=== PATIENT | male | born 1950 | race Caucasian/White ===

== ENCOUNTER → 2023-10-31 12:48 | Outpatient (REF) | payer MEDICARE, BC, SELFPAY | LOC: RCS 12:48 | PROVIDERS: ATTENDING PHYSICIAN Otolaryngology; FAMILY PHYSICIAN Emergency Medicine; REFERRING PHYSICIAN Internal Medicine Cardiovascular Disease | DX: R06.09 Other forms of dyspnea (principal) | CPT/HCPCS: 93017; 70486; 93350 ==

== ENCOUNTER → 2024-01-11 06:24 | Day surgery (SDC) | payer MEDICARE, BC, SELFPAY | LOC: GI 06:24 | PROVIDERS: ATTENDING PHYSICIAN Internal Medicine Gastroenterology | DX: Z12.11 Encounter for screening for malignant neoplasm of colon (principal); K64.9 Unspecified hemorrhoids; K56.699 Other intestinal obstruction unspecified as to partial versus complete obstruction; K44.9 Diaphragmatic hernia without obstruction or gangrene; K31.7 Polyp of stomach and duodenum; K31.89 Other diseases of stomach and duodenum; C88.4 Extranodal marginal zone B-cell lymphoma of mucosa-associated lymphoid tissue [MALT-lymphoma]; K22.70 Barrett's esophagus without dysplasia; R12 Heartburn | CPT/HCPCS: 43239; G0121; 88305; 88341; 88342 ==

== ENCOUNTER → 2024-02-21 09:59 | Outpatient (REF) | payer MEDICARE, BC, SELFPAY | LOC: REG 09:59 | PROVIDERS: ATTENDING PHYSICIAN Internal Medicine Critical Care Medicine; FAMILY PHYSICIAN Internal Medicine | DX: R05.3 Chronic cough (principal); J44.9 Chronic obstructive pulmonary disease, unspecified | CPT/HCPCS: 87070; 87205 ==

== ENCOUNTER → 2024-08-24 09:01 | Outpatient (REF) | payer MEDICARE, BC, SELFPAY | LOC: PAVMRI 09:01 | PROVIDERS: ATTENDING PHYSICIAN Physician Assistant; FAMILY PHYSICIAN Internal Medicine | DX: M54.2 Cervicalgia (principal) | CPT/HCPCS: 72141; 73221 ==

== ENCOUNTER → 2024-09-01 09:35 | Outpatient (REF) | payer MEDICARE, BC, SELFPAY | LOC: HWRAD 09:35 | PROVIDERS: ATTENDING PHYSICIAN Internal Medicine Gastroenterology; FAMILY PHYSICIAN Internal Medicine | DX: Q43.8 Other specified congenital malformations of intestine (principal) | CPT/HCPCS: 74261 ==

== ENCOUNTER → 2024-10-22 15:56 | Outpatient (REF) | payer MEDICARE, BC, SELFPAY | LOC: RAD 15:56 | PROVIDERS: ATTENDING PHYSICIAN Nurse Practitioner Adult Health; FAMILY PHYSICIAN Internal Medicine | DX: R05.3 Chronic cough (principal) | CPT/HCPCS: 71046 ==

== ENCOUNTER → 2024-12-26 15:51 | Outpatient (REF) | payer MEDICARE, BC, SELFPAY | LOC: RAD 15:51 | PROVIDERS: ATTENDING PHYSICIAN Internal Medicine | DX: R07.89 Other chest pain (principal) | CPT/HCPCS: 71046 ==

== ENCOUNTER → 2025-02-12 13:21 | Outpatient (REF) | payer MEDICARE, OTHER, SELFPAY | LOC: RAD 13:21 | PROVIDERS: ATTENDING PHYSICIAN Nurse Practitioner Adult Health; FAMILY PHYSICIAN Internal Medicine | DX: R05.1 Acute cough (principal) | CPT/HCPCS: 71046 ==

== ENCOUNTER 2025-02-18 06:19 | Day surgery (SDC) | payer MEDICARE, OTHER, SELFPAY | END 2025-02-18 12:21 | disposition home or self-care (01) | LOC: GI 06:19 | PROVIDERS: ATTENDING PHYSICIAN Internal Medicine Gastroenterology | DX: K57.30 Diverticulosis of large intestine without perforation or abscess without bleeding (principal); D12.8 Benign neoplasm of rectum; K64.8 Other hemorrhoids; K64.4 Residual hemorrhoidal skin tags; C88.40 Extranodal marginal zone B-cell lymphoma of mucosa-associated lymphoid tissue [MALT-lymphoma] not having achieved remission; K20.90 Esophagitis, unspecified without bleeding; K22.89 Other specified disease of esophagus; K31.7 Polyp of stomach and duodenum; K44.9 Diaphragmatic hernia without obstruction or gangrene; K31.89 Other diseases of stomach and duodenum; R12 Heartburn; Z86.0100 Personal history of colon polyps, unspecified; Z87.19 Personal history of other diseases of the digestive system | CPT/HCPCS: 45331; 43251; 43239; 88305 ==

== ENCOUNTER 2025-03-02 23:26 | Inpatient (IN) | payer MEDICARE, BC, SELFPAY ==
[2025-03-02 14:43] VITALS: BP 130/93
[2025-03-02 15:18] LABS: Hematocrit 35.4 % (39.0-52.0); Hemoglobin 11.6 g/dL (13.0-18.0); Mean Corp Hgb Conc. 32.8 g/dL (33.0-37.0); Mean Corpuscular Volume 86.6 fL (80.0-94.0); Nucleated Red Blood Cells % 0 % (-); Platelet Count 242 10^3/uL (130-400); Red Cell Dist. Width 13.8 % (11.5-14.5)
[2025-03-02 15:23] LABS: ALT (SGPT) 17 U/L (0-50); AST (SGOT) 20 U/L (17-59); Albumin 4.4 g/dl (3.5-5.0); Alkaline Phosphatase 81 U/L (38-126); Blood Urea Nitrogen 19 mg/dl (9-20); Calcium 9.5 mg/dl (8.4-10.2); Carbon Dioxide 26 mmol/L (22-30); Chloride 104 mmol/L (98-107); Glucose 86 mg/dl (70-99); Potassium 4.2 mmol/L (3.5-5.1); Sodium 138 mmol/L (135-145); Total Protein 7.0 g/dl (6.3-8.2); eGFR > 60.00
[2025-03-02 18:45] VITALS: BMI 23.3
[2025-03-02 19:00] VITALS: BP 140/91
[2025-03-02 20:00] VITALS: BP 125/86
[2025-03-02] MEDS: ZOFRAN 4 MG IV (20:06)
[2025-03-02] MEDS: DUONEB 3 ML INH (20:06)
[2025-03-02] MEDS: TYLENOL 1000 MG PO (20:06)
--- NOTE | 2025-03-02 22:13 | ED.GENMED ---
History of Present Illness
General
Chief Complaint: Cold/Flu/URI Symptoms
Source: patient
Exam Limitations: none
Time Seen by Provider: 03/02/25 18:42
Nursing documentation reviewed up to this point in time: agreed with
History of Present Illness
History of Present Illness:
Patient to ED with complaint of worsening cough, thick secretions. Cough started a few months ago. He took a zpack in december without improvement. His PCP then placed him on a course of doxycycline. He reports no improvement. 2 weeks ago he was
placed on another antibiotic - cephalosporin - without improvement. Sunday he developed a fever. Brought to ED tonight by spouse for eval. PUlse ox 97%RA
Past History
Past History
ED Past Medical History: Cancer (MALT lymphoma, lung), HTN, Hypercholesterolemia and Other (Juarez's, lymphoma,)
ED Past Surgical History: Tonsilectomy and Other (Right upper lobectomy)
Social History
Tobacco: Non-smoker
Alcohol: Occasional
Drug: None
Personal:
Living: with family
Employment: Employed
Review of Systems
Review of Systems
Allergies reviewed?: Yes
All Other Systems: ROS reviewed and negative except as documented in HPI and ROS
Constitutional: Reports fever and fatigue
EENT: Reports no symptoms
Respiratory: Reports cough and trouble breathing
Cardiac: Reports no symptoms
ABD/GI: Reports no symptoms
: Reports no symptoms
Musculoskeletal: Reports no symptoms
Skin: Reports no symptoms
Neurological: Reports weakness
Psychiatric: Reports no symptoms
Phy Exam
General Physical Exam
General Presentation: moderate distress
General age: appears stated age
General Skin: warm and dry
General Habitus: normal
General Mental: alert
Cardiovascular Exam
Cardiovascular Exam: regular rate/rhythm and no edema
Pulmonary Exam
Pulmonary Exam: decreased breath sounds
Cough: coarse cough
Musculoskeletal Exam
Musculoskeletal Exam: full ROM and neuro vasc intact
Skin Exam
Skin Exam: normal color, warm/dry and no rash
Psychiatric Exam
Psychiatric Exam: normal mood/affect
Course
Orders/Labs/Results
Orders:
Orders
03/02/25 14:56
Complete Blood Count/With Diff Urgent
Comprehensive Metabolic Panel Urgent
Blood Culture Urgent
AYANA Source: Blood/Venous
Specimen Description:
03/02/25 18:[address] [CT Chest PE Study] Urgent
Comment:
Reason For Exam: Pain, SOB, fever, lung CA/RU lobectomy
03/02/25 18:55
Electrocardiogram (*1) Urgent
Reason for Study: Shortness of Breath
EKG- Treatment ONCE
Ipratropium/Albuterol Sulfate [Duoneb] 3 ml INH R NOW STA
03/02/25 19:30
Acetaminophen [Tylenol] 1,000 mg PO NOW STA
Ondansetron Injectable [Zofran] 4 mg IV NOW STA
03/02/25 20:16
Lactic Acid Urgent
03/02/25 22:11
Cefepime HCl [Maxipime] 2,000 mg IV NOW STA
03/02/25 22:15
Sterile Water [Sterile Water For Injection] 10 ml .ROUTE .STK-MED ONE
03/02/25 22:56
Admit/Transfer Patient As Directed
Co-Sign Provider:
Level of Care: Inpatient admission
Assign to:: Medical/Surgical
Physician / Group: Minnie villedaists
Diagnosis: multi-focal pneumonia
Reason for Hospitalization: multi-focal pneumonia - IV vancomycin and IV cefepime
Expected length of stay greater than two midnights?: Yes
ELOS- Estimated Length of Stay in days: 3
I certify the patient meets the requirements for IP care: Yes
PRN Pain Medication Management As Directed
May give lesser potent ordered pain med per pt: Yes
preference::
Protocol:: Medication orders for pain may be administered in a
manner that supports deferring to patient preference
when the pt is:
- Requesting an ordered lesser potent pain medication.
Least to most potent pain medications are defined
as: acetaminophen < NSAID < tramadol < opioids
(morphine, oxycodone, hydromorphone).
- Requesting a lesser dose of the same medication IF
ORDERED.
- Requesting a less intrusive route of administration
if both routes are prescribed by the provider (PO <
IV).
03/02/25 22:57
Code Status As Directed
Resuscitation Status: Full Code
03/03/25 01:02
0.9% Sodium Chloride 1000 ml [Nss] 1,000 ml IV 100 mls/hr
Acetaminophen [Tylenol] 650 mg PO Q4HPRN PRN
Benzonatate [Tessalon Perles] 200 mg PO TIDPRN PRN
Bisacodyl [Dulcolax] 10 mg RECTAL [id number] PRN
Docusate W/Senna [Senokot-S] 1 tablet PO BIDPRN PRN
Ipratropium/Albuterol Sulfate [Duoneb] 3 ml INH R Q4HPRN PRN
Ondansetron Injectable [Zofran] 4 mg IV Q6HPRN PRN
Polyethylene Glycol Powder [Miralax] 17 grams PO DAILYPRN PRN
VANCOMYCIN Pharmacy to Dose [VANCOCIN Pharmacy to Dose] 1 each Pharmacy To Prepare [Call Pharmacy To Prepare] 0 ml IV PER PROTOCOL
03/03/25 01:02
INFECTIOUS DISEASE CONSULT Routine
Consulting Provider: Devora Coates
Was physician already notified: Yes
Reason for consult: recurrent PNA - multifocal, immunocompromised
PULMONARY CONSULT Routine
Consulting Provider: Ifeanyi Jiménez
Was physician already notified: Yes
Reason for consult: recurrent PNA - multifocal, immunocompromised
Activity As Directed
Activity Level: As Tolerated
Vital Signs As Directed
Frequency: Per unit guidelines
Acapella [Rx Pep / Acapela] [RESP] Routine
Rx Incentive Spirometry [RESP] Routine
Frequency: q1h while awake
Ot Eval And Treat Routine
Pt Eval And Treat Routine
Activity Level: As Tolerated
DX Deep Vein Thrombosis Video Routine
03/03/25 01:14
MRSA Screen Routine
AYANA Source: Nose
Specimen Description:
03/03/25 02:13
Respiratory Culture/Gram Stain Routine
AYANA Source: Sputum
Specimen Description:
Date Specimen was Collected: 03/03/25
Time Specimen was Collected: 01:57
03/03/25 Breakfast
Cholesterol Lowering
At Your Request: Full Participation
Does patient need a safe tray?: No
Cholesterol Lowering: Sodium, 2 Gram
Cefepime HCl [Maxipime] 1,000 mg IV Q8H
03/03/25 06:27
Basic Metabolic Panel IN AM
Complete Blood Count/No Diff IN AM
03/03/25 08:00
Chlorthalidone [Hygroton] 12.5 mg PO DAILY
Guaifenesin [Mucinex] 1,200 mg PO Q12
Ipratropium/Albuterol Sulfate [Duoneb] 3 ml INH R QID
Losartan [Cozaar] 50 mg PO DAILY
Pantoprazole [Protonix] 40 mg PO BID
03/03/25 18:00
Atorvastatin [Lipitor] 10 mg PO QPM
Enoxaparin Sodium [Lovenox] 40 mg SC QPM
Abnormal Lab Results
03/02/25
14:56
WBC 11.0 H 10^3/uL
(4.8-10.8)
RBC 4.09 L 10^6/uL
(4.70-6.10)
Hgb 11.6 L g/dL
(13.0-18.0)
Hct 35.4 L %
(39.0-52.0)
MCHC 32.8 L g/dL
(33.0-37.0)
Absolute Neuts (auto) 8.0 H 10^3/uL
(1.4-6.5)
Absolute Monos (auto) 1.0 H 10^3/uL
(0.1-0.6)
Lymphocytes % 14.6 L %
(20.5-51.1)
03/02/25 14:56
03/02/25 14:56
Vital Signs
Initial and Last Documented VS:
Initial Vital Signs
Temp Pulse Resp BP Pulse Ox
98.8 F 81 16 130/93 97
03/02/25 14:43 03/02/25 14:43 03/02/25 14:43 03/02/25 14:43 03/02/25 14:43
Last Documented Vital Signs
Temp Pulse Resp BP Pulse Ox
98.1 F 75 16 134/81 96
03/03/25 15:10 03/03/25 19:53 03/03/25 19:53 03/03/25 15:10 03/03/25 19:53
*Radiology
Radiology exam reviewed: radiology read reviewed
*Pulse Oximetry
SaO2: 96
Oxygen Mode of Delivery: Room air
Patient hypoxic: no
*Critical Care Note
Total Time (30-74mins, 75-104mins- exclusive of procedures): Not Applicable
ED Attending Note
-
Portions of this chart may have been created with voice recognition software.� Occasional wrong word or��sound alike� substitutions may have occurred due to the inherent limitations of voice recognition software.
Discharge Plan
Departure
Patient Disposition: Admit
Date of Disposition: 03/02/25
Time of Disposition: 22:19
Presentation/result/management discussed w/ accepting MD/DO: Hospitalist
Patient with high blood pressure during this ER visit?: No
Condition: Fair
Covid-19: Not Applicable
Discharge Problem:
Multifocal pneumonia
Interventions
Interventions:
*Risk Screen - Suicide Last Done: 03/03/25 01:06
*General Assessment Last Done: 03/02/25 20:33
*Neglect/Abuse Screening Last Done: 03/02/25 14:45
*ED- Fall Risk Assessment Last Done: 03/02/25 20:33
*ED COVID-19 Vaccine History Last Done: 03/03/25 01:06
*Nursing Disposition Last Done: 03/03/25 01:42
ED- Pulmonary Assessment Last Done: 03/02/25 20:33
Discharge Date and Time
Discharge Date/Time: 03/03/25 01:10
[2025-03-02] MEDS: MAXIPIME 2000 MG IV (22:22)
[2025-03-02 22:27] VITALS: BP 111/80
--- NOTE | 2025-03-02 22:42 | HPS.HSE ---
Family Physician
-
Family Physician: NOT KNOW UNKNOWN - PT DOES
Chief Complaint
-
SOB
History of Present Illness
74 y/o M hx of MALT lymphoma on Rituxan, hx of lung cancer s/p lobectomy 2023 ([facility]) complicated by collapsed lung, HTN, HLD presents to ER for fever and cough. He reports symptoms began last Sunday. Cough is productive of green sputum. Also reports
SOB and upper/lower chest pain. He report prior similar symptoms with courses of doxycycline and Keflex without improvement. Denies any other complaints
CT imaging in ER concerning for multifocal pneumonia - patient placed on IV antibiotics and admitted.
Medical History
Past Medical History
Past Medical History: Reports GERD, HTN, Hypercholesterolemia and Other (MALT lymphoma on Rituxan, hx of lung cancer s/p lobectomy 2023 ([facility]))
Past Surgical History: Reports Other (lung lobectomy)
Social History
Tobacco: Non-smoker
Alcohol: Occasional
Drug: None
Personal:
Living: With Family
Employment: Employed
Family History
Family History: Not pertinent
Allergies / Home Medications
Allergies reflects when Allergies were last updated in [facility].
Home Medications with original date entered in [facility]
Allergy/Medication List:
Allergies
Allergy/AdvReac Type Severity Reaction Status Date / Time
No Known Allergies Allergy Unverified 06/21/22 12:50
Home Medications
chlorthalidone 25 mg tablet 12.5 mg PO DAILY 07/25/17
lorazepam 1 mg tablet 1 mg PO HS 07/25/17
losartan 50 mg tablet 50 mg PO DAILY 07/25/17
simvastatin 20 mg tablet 20 mg PO QPM 07/25/17
valacyclovir 500 mg tablet 500 mg PO DAILY 07/25/17
pantoprazole 40 mg tablet,delayed release 40 mg PO BID #60 tabs 07/26/17
nirmatrelvir 300 mg (150 mg x2)-ritonavir 100 mg tablet,dose pack (Paxlovid) See Rx Instructions PO .COMPLEX #30 ea 06/21/22
Review of Systems
-
A 12 point ROS was completed and negative except as noted: Yes
Physical Exam
Vital Signs
Vital Signs
Temp Pulse Resp BP Pulse Ox
98.8 F 85 20 125/86 96
03/02/25 14:43 03/02/25 20:45 03/02/25 20:45 03/02/25 20:00 03/02/25 22:16
Physical Exam
General: No Apparent Distress
HEENT: NormoCephalic and Anicteric
Respiratory: Wheezes, Rhonchi and Decreased Breath Sounds
Cardiac: S1/S2 and Regular Rhythm
Neuro: AO x 3
Psych: Calm
Laboratory Results
-
03/02/25 14:56
03/02/25 14:56
Laboratory Results
Lactic Acid 1.1 mmol/L (0.7-2.0) 03/02/25 20:16
Total Bilirubin 0.9 mg/dl (0.2-1.3) 03/02/25 14:56
AST 20 U/L (17-59) 03/02/25 14:56
ALT 17 U/L (0-50) 03/02/25 14:56
Alkaline Phosphatase 81 U/L (38-126) 03/02/25 14:56
Data Reviewed
-
CT Scan: Report Reviewed by me, Discussed with Patient and Discussed with Family
Lab Data: Labs Reviewed by me
Impression/Plan
-
Assessment:
Multifocal pneumonia
Underlying hx of lung cancer s/p lobectomy 2023 ([facility]) with collapsed lung complication
- no improvement despite doxycycline and keflex courses
- CT: mild bronchial wall thickening with bibasilar opacities which likely represents multifocal pneumonia
- admit
- IV Vanco/Cefepime; check MRSA swab and sputum culture
- scheduled and prn nebs
- IS/Acapella/Mucolytics
- Pulm and ID evaluations
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
GERD - PPI
HLD - statin
Essential HTN
- on Chlorthalidone/Losartan
DVT ppx: Lovenox
Code: Full
[2025-03-02 23:00] VITALS: BP 72/59
[2025-03-02 23:03] VITALS: BP 101/76
[2025-03-03 01:17] VITALS: BP 135/79; BMI 23.8
[2025-03-03] MEDS: NSS 1000 IV ×3 (01:43→23:09)
[2025-03-03] MEDS: VANCOCIN 530 MG IV (01:48)
[2025-03-03] MEDS: TESSALON PERLES 200 MG PO ×3 (02:31→17:18)
--- NOTE | 2025-03-03 02:51 | PTCARENOTE ---
Pt transferred to 4W. Pt AAOx3, able to stand on scale for weight and ambulated to bed without assistance. Pt oriented to room, safety measures in place, call barrera within reach.
[2025-03-03] MEDS: MAXIPIME 1000 MG IV ×3 (05:24→22:57)
[2025-03-03] MEDS: STERILE WATER FOR INJECTION 10 ML IV ×3 (05:25→22:57)
[2025-03-03 07:15] VITALS: BP 120/78
[2025-03-03 07:21] LABS: Hematocrit 31.7 % (39.0-52.0); Hemoglobin 10.5 g/dL (13.0-18.0); Mean Corp Hgb Conc. 33.1 g/dL (33.0-37.0); Mean Corpuscular Volume 86.1 fL (80.0-94.0); Platelet Count 214 10^3/uL (130-400); Red Cell Dist. Width 13.9 % (11.5-14.5)
[2025-03-03] MEDS: DUONEB 3 ML INH ×4 (07:34→19:50)
[2025-03-03 07:44] LABS: Blood Urea Nitrogen 13 mg/dl (9-20); Calcium 8.6 mg/dl (8.4-10.2); Carbon Dioxide 24 mmol/L (22-30); Chloride 108 mmol/L (98-107); Estimated Creatinine Clearance 48 ml/min; Glucose 83 mg/dl (70-99); Potassium 4.2 mmol/L (3.5-5.1); Sodium 138 mmol/L (135-145); eGFR > 60.00
[2025-03-03] MEDS: MUCINEX 1200 MG PO ×2 (07:58→20:23)
[2025-03-03] MEDS: TYLENOL 650 MG PO ×2 (07:58→22:44)
[2025-03-03] MEDS: DESENEX/MITRAZOL/ZEASORB 1 APPLIC TOPICAL ×2 (07:59→20:29)
[2025-03-03] MEDS: COZAAR 50 MG PO (07:59)
[2025-03-03] MEDS: PROTONIX 40 MG PO (07:59)
[2025-03-03] MEDS: NON-FORMULARY ITEM 1 DROP OPHTH ×2 (08:13→20:24)
--- NOTE | 2025-03-03 08:29 | W.PN.HOSP.TC ---
Today's Communication/Plan
-
see A/P
Assessment / Plan
Assessment / Plan
HPI: 74 yo M PMH MALT lymphoma on Rituxan, hx of lung cancer s/p lobectomy 2023 ([facility]) complicated by collapsed lung, HTN, HLD; presented to ER for fever and cough. He reports symptoms began last Sunday. Cough is productive of green sputum. Also
reported SOB and upper/lower chest pain. He report prior similar symptoms with courses of doxycycline and Keflex without improvement. Denies any other complaints
CT imaging in ER concerning for multifocal pneumonia - patient placed on IV antibiotics and admitted.
A/P:
# Multifocal pneumonia
# Underlying hx of lung cancer s/p lobectomy 2023 ([facility]) with collapsed lung complication
no improvement despite doxycycline and keflex courses
CT chest: mild bronchial wall thickening with bibasilar opacities which likely represents multifocal pneumonia. No PE.
Follow blood culture, resp culture, MRSA screen
Check urine Strep and Legionella Ag, Check COVID/Flu
Cont IV Vanco/Cefepime
scheduled and prn nebs
IS/Acapella/Mucolytics
Chest percussion
Pulm and ID evaluations
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
# GERD - PPI
# HLD - statin
# Essential HTN
on Chlorthalidone/Losartan
DVT ppx: Lovenox
Code: Full
DW RN
total time 51 min
Anticipated Discharge: > 48 hours
Subjective/Interval History
-
Date of Service: March 03, 2025
Objective Data
-
Labs:
Laboratory Results
03/03/25
06:27
WBC 10.1
Hgb 10.5 L
Hct 31.7 L
Plt Count 214
Sodium 138
Potassium 4.2
Chloride 108 H
Carbon Dioxide 24
BUN 13
Creatinine 1.1
Glucose 83
Calcium 8.6
Vital Signs:
Vital Signs
Temp Pulse Resp BP Pulse Ox
37.2 C 73 18 120/78 94
03/03/25 07:15 03/03/25 07:40 03/03/25 07:40 03/03/25 07:15 03/03/25 07:40
Review of Systems
-
History Source: Patient
Respiratory: Reports Cough and Trouble Breathing
Physical Exam
-
General: Well Developed, Well Nourished, No Apparent Distress, Comfortable and Conversant; Negative Respiratory Distress
HEENT: Normocephalic, Atraumatic, Nose Appears Normal and Ears Appear Normal; Negative Oxygen
Respiratory: Clear to Auscultation, Rhonchi, Non Labored Respirations and Other (harsh breath sound ); Negative Accessory Resp Muscle Use
Cardiac: Regular Rhythm and S1/S2
GI: Soft, Nontender, Nondistended and Normal Bowel Sounds
Skin: Warm and Dry
Neuro: Awake, Alert and Oriented
Psych: Calm and Intact Judgement/Insight
Data Reviewed
-
CT Scan: Report Reviewed by me
Labs: Labs Reviewed by me
--- NOTE | 2025-03-03 08:53 | PHA.VAN.IN ---
Addendum entered and electronically signed by Kaela Posada [facility] 03/03/25 10:27:
Agree with assessment and plan
Original Note:
Assessment
- Assessment
Renal Function: Appears similar to baseline
AUC Dosing Plan
- Dosing Variables
Dosing Weight (kg): 62.8
Dosing CrCl (ml/min): 48
Vd coefficient (L/kg): 0.7
- Empiric Dosing
Initial / Loading Dose: received 1500mg at 0148 this morning
Maintenance Regimen: 1000mg q24h
Estimated AUC (mcg*h/mL): 526
Estimated Peak (mcg*h/mL): 34.8
Estimated Trough (mcg/ml): 12.6
Estimated Half Life (H): 15.7
- Monitoring
No levels ordered at this time: consider within next few days
MRSA Screen: Ordered per protocol
Pharmacokinetics Vancomycin I
- -
Patient Age: 74
Patient Sex: Male
Vancomycin Day #: 1
Indication: Pulmonary/Respiratory
Requesting Provider: Dr. Barboza
Pertinent Antimicrobial Allergies:
NKDA
Height / Weight:
Height 5 ft 4 in
Actual Weight 62.766 kg
Pertinent Past Medical History: MALT lymphoma, lung cancer
- Vital Signs / Lab Results
Temp Pulse Resp BP Pulse Ox
98.9 F 73 18 120/78 94
03/03/25 07:15 03/03/25 07:40 03/03/25 07:40 03/03/25 07:15 03/03/25 07:40
Lab Results - Hematology
03/02/25 03/03/25
14:56 06:27
WBC 11.0 H 10.1
Lab Results - Chemistry
03/02/25 03/03/25
14:56 06:27
BUN 19 13
Creatinine 1.1 1.1
Estimated Creat Clear 48
Albumin 4.4
03/02/25 03/02/25
14:46 20:16
Lactic Acid Cancelled 1.1
--- NOTE | 2025-03-03 08:58 | CON.PUL ---
Consultation
Consultation Request
Date/Time Consultation Requested: 03/03/2025-7:30 AM
Date/Time Consultation Performed: 03/03/2025-8:30 AM
Requesting Provider: Hospitalist
Performing Provider: Dr. Boland
Reason for Consultation: Multifocal pneumonia
Medical History
-
Chief Complaint: Shortness of breath, cough
History of Present Illness:
74-year-old non-smoking male with a history of MALT lymphoma on Rituxan, lung cancer status post lobectomy at [facility] 2023, hypertension, hyperlipidemia who is complained of productive cough treated with antibiotics and steroids in the outpatient
setting without resolution and now admitted with CT evidence for multifocal pneumonia-pulmonary consulted for shortness of breath/cough/wheeze/pneumonia 03/03/2025. Patient is feeling somewhat improved but continues to have green sputum production.
He has chest congestion and wheezing. Has some shortness of breath with exertion. He has sinus congestion with postnasal drip. He denies any chest pain, hemoptysis, pleurisy, abdominal pain, nausea, focal weakness or lower extremity swelling.
Past Medical History
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 Lung cancer status post lobectomy 2023-[facility]. Hypertension. Hyperlipidemia.)
Social History
Tobacco: Non-smoker
Alcohol: Occasional
Drug: None
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
Living: With Family
Occupational Exposures: No known asbestos exposure
Environmental Exposures: No known tuberculosis exposure
Family History
Family History: Reviewed & Not Pertinent
Allergies / Home Medications
Allergies
Allergy/AdvReac Type Severity Reaction Status Date / Time
No Known Allergies Allergy Unverified 06/21/22 12:50
Home Medications
�Medication �Instructions �Recorded �Confirmed �Last Taken �Type
valacyclovir 500 mg tablet 500 mg PO DAILY 07/25/17 03/02/25 Unknown History
amlodipine 2.5 mg tablet 2.5 mg PO DAILY 03/02/25 03/02/25 Unknown History
aspirin 81 mg tablet 81 mg PO DAILY 03/02/25 03/02/25 Unknown History
atorvastatin 40 mg tablet 40 mg PO HS 03/02/25 03/02/25 Unknown History
cholecalciferol (vitamin D3) 25 25 mcg PO DAILY 03/02/25 03/02/25 Unknown History
mcg (1,000 unit) tablet (Vitamin
D3)
lifitegrast 5 % eye drops in a 1 drp ophthalmic (eye) BID 03/02/25 03/02/25 Unknown History
dropperette (Xiidra)
loratadine 10 mg tablet 10 mg PO DAILY 03/02/25 03/02/25 Unknown History
losartan 50 mg tablet 50 mg PO DAILY 03/02/25 03/02/25 Unknown History
montelukast 10 mg tablet 10 mg PO DAILY 03/02/25 03/02/25 Unknown History
pantoprazole 40 mg tablet,delayed 40 mg PO 1XD 03/02/25 03/02/25 Unknown History
release
tamsulosin 0.4 mg capsule (Flomax) 0.8 mg PO HS 03/02/25 03/02/25 Unknown History
lifitegrast 5 % eye drops in a 1 drp ophthalmic (eye) BID dry eyes 03/03/25 03/03/25 03/02/25 23:00 History
dropperette (Xiidra)
Review of Systems
-
Unable to Obtain full review of systems at this time due to: Other (Per HPI)
Vitals / Labs / Diagnostic Testing
Vital Signs
Temp Pulse Resp BP Pulse Ox
98.9 F 73 18 120/78 94
03/03/25 07:15 03/03/25 07:40 03/03/25 07:40 03/03/25 07:15 03/03/25 07:40
Lab Data
03/03/25 06:27
03/03/25 06:27
Diagnostic Testing:
Physical Exam
-
Exam:
Well-nourished and well-developed in no apparent distress
HEENT-atraumatic, normocephalic
Neck-supple, no JVD, no bruit
Heart-regular rate and rhythm-no murmurs, rubs or gallops
Chest with diminished breath sounds, prolonged expiratory time, expiratory wheezes, rhonchi, and crackles right greater than left base
Back without tenderness
Abdomen-soft, nontender, nondistended, no hepatosplenomegaly
Extremities-no cyanosis, clubbing, edema and good peripheral pulses
Integument-intact, no rashes, lesions or ecchymosis
Neurology-alert and oriented, nonfocal motor and sensory exam
Assessment
-
74-year-old non-smoking male with a history of MALT lymphoma on Rituxan, lung cancer status post lobectomy at [facility] 2023, hypertension, hyperlipidemia who is complained of productive cough treated with antibiotics and steroids in the outpatient
setting without resolution and now admitted with CT evidence for multifocal pneumonia-pulmonary consulted for shortness of breath/cough/wheeze/pneumonia 03/03/2025.
Multifocal pneumonia in immunocompromised patient on Rituxan
Chronic cough
Postnasal drip/sinusitis
Suspected asthma with mild to moderate acute exacerbation-significant wheezing on exam
Mild normocytic anemia-hemoglobin 10.5
Conditions present prior to admission:
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
Lung cancer status post lobectomy 2023-[facility].
Hypertension.
Hyperlipidemia.
Plan
Respiratory decompensation likely related to bronchitis/pneumonia-patient reports most recent cultures usual respiratory kori, however, sputum culture as an outpatient also revealed strep pneumonia/haemophilus influenza treated with extensive
Ceftin with initial improvement and then resurgence of symptoms
Extensive outpatient workup and previous treatments were reviewed
Supplemental oxygen as needed
Assess discharge supplemental oxygen needs
Aspiration precautions
Mucolytic's
Nebulizers
Saline nebulizers
Short course of steroids with ongoing wheezing
Mucus clearing devices-Acapella
Vest therapy
Sputum culture-including fungal and atypicals
Check cultures
Empiric antibiotics-cefepime and vancomycin initiated
Add atypical coverage with doxycycline
Tailor antibiotics according to cultures
Infectious disease consultation-pending
Saline nasal irrigations
CT sinuses
Consider ENT evaluation
DVT prophylaxis-on Lovenox
GI prophylaxis-on pantoprazole
Nutrition
Early mobilization
Outpatient pulmonary pihkgm-to-kktw saw Dr. Willingham 01/27/2025 and then Mariam Loco CNP 02/16/2025 and has appointment with Mariam on 04/20/25-patient would like to see Dr. Willingham next
Diagnostic data:
Chest x-ray 04/13/2023-[facility]D
Chest x-ray 10/22/2024-NAD
Chest x-ray 12/26/2024-NAD
Chest x-ray 01/28/2025-NAD
Chest x-ray 02/12/2025-NAD
CT chest 03/02/2025-no evidence for pulm embolism, mild bronchial wall thickening and bibasilar opacifications which likely represent multifocal pneumonia
CT sinus 10/31/23-severe right nasal septal deviation, mild mucosal thickening ethmoid sinuses
Stress echocardiogram 10/31/23-normal stress echocardiogram, EF 55-60% and postexercise 65-70%
Data Reviewed
-
PFT: Report reviewed by me
EKG: Report reviewed by me
Radiology: Image personally visualized and interpreted and Report reviewed by me
CT Scan: Image personally visualized and interpreted and Report reviewed by me
Medical Tests (Nuc Med, Echo etc): Report reviewed by me
Labs: Labs reviewed by me
Old Records: Reviewed
Total Time Spent with Patient (in minutes): 75
--- NOTE | 2025-03-03 09:45 | PTOTSP ---
pt currently requires supervision to no assistance to complete simple ADLs, functional transfers, ambulation. no acute OT needs identified at this time, will sign off.
--- NOTE | 2025-03-03 11:06 | CM ---
Initial assessment completed. 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
Patient resides w/ spouse in a 2STH w/ basement and loft, 30 steps to enter from the outside w/ a landing. Patient is independent w/ ambulation, no device required. Independent w/ ADLs. Patient has a nebulizer that is in good condition. Patient prev
was using neb as needed, however, he has been using more frequently due to pneumonia. Patient currently engages in OP PT at [facility], where his son works. Patient is a retired professor. Spouse is a oncologist. Prev w/ [facility] at home last fall
following surgery.
Address, point of contact and insurance verified
PCP: Lenny Yuen
Pharmacy: [facility]
Therapy assessed, no skilled needs at this time
Plan: Home, no needs when stable
[2025-03-03] MEDS: SOLU-MEDROL PF 40 MG IV ×2 (12:31→23:07)
[2025-03-03] MEDS: OCEAN, SALINE MIST 2 SPRAYS NASAL (12:31)
--- NOTE | 2025-03-03 13:35 | CON.ID ---
Consultation
-
Date/Time Consultation Requested: 03/03/25
Date/Time Consultation Performed: 03/03/25
Requesting Provider: Dr Peterson
Performing Provider: Dr Emilee Ventura
Reason for Consultation: multifocal pneumonia in immunocompromised patient with history of lobectomy
Chief Complaint / Past History
Chief Complaint
persistant cough with tenacious sputum continuing despite antibiotic
History of Present Illness
The patient has had complaints of wet productive cough with thick sputa which is often green/yellow with recent weight loss and feelings of unwellness for weeks with multiple CXR without evidence of pneumonia and with oral antibiotic not effecting
resolution of symptoms
Past History
Past Medical History: Asthma, Cancer, GERD, HTN, Hypercholesterolemia and Other (diverticulosis)
Additional Past Medical History:
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
Past Surgical History: Other (lobectomy for adenocarcinoma of lung)
Allergy History:
No Known Allergies Allergy (Unverified 06/21/22 12:50)
Social History
Tobacco: Former Smoker
Alcohol: Occasional
Drug: None
Personal:
Living: With Family
Employment: Retired
Family History
Family History: Not Pertinent
Review of Systems
Review of Systems
General: Change in Appetite
HEENT: Sinus Problems (hoarse voice,dysphagia)
Cardiovascular: Chest Pain
Respiratory: Cough and Sputum Production
Gasteroenterology: Weight Loss
Endocrine: Weakness and Fatigue
All systems: All other systems were reviewed and were negative
Vital Signs
Temp Pulse Resp BP Pulse Ox
98.9 F 79 18 120/78 93
03/03/25 07:15 03/03/25 11:16 03/03/25 11:16 03/03/25 07:15 03/03/25 11:16
Physical Exam
Physical Exam
Constitutional: Well Developed, Comfortable, Chronically Ill and Non-toxic
Head: Normocephalic
Eyes: Pupils Equal, Pupils Round, No Conjunctival Hemorrhage and Sclera Anicteric
Pharynx: Benign
Oral: No Thrush and No Ulcers
Cardiovascular: Regular Rate
Pulmonary: Non Labored (decreased breath sounds at bases, wet cough ,personally saw thick jimenez/beige sputum without blood noted)
Gastrointestinal: Soft, Non Tender and Non Distended (no flank tenderness)
Extremities: Pulses
Skin: Warm and Dry
Wound: None
Neurological: Awake, Alert, Oriented, AO x 3 and No Motor Deficits
Psychological: Calm (conversant, pleasant, cooperative)
Lab / Diagnostic Study Results
03/03/25 06:27
03/03/25 06:27
Abs Immat Gran (auto) 0.0 10^3/uL (0-0.05) 03/02/25 14:56
Absolute Neuts (auto) 8.0 10^3/uL (1.4-6.5) H 03/02/25 14:56
Absolute Lymphs (auto) 1.6 10^3/uL (1.2-3.4) 03/02/25 14:56
Absolute Monos (auto) 1.0 10^3/uL (0.1-0.6) H 03/02/25 14:56
Absolute Basos (auto) 0.0 10^3/uL (0-0.2) 03/02/25 14:56
Immature Gran % 0.4 % (0-0.5) 03/02/25 14:56
Neutrophils % 72.8 % (42.2-75.2) 03/02/25 14:56
Lymphocytes % 14.6 % (20.5-51.1) L 03/02/25 14:56
Monocytes % 9.2 % (1.7-9.3) 03/02/25 14:56
Eosinophils % 2.6 % (0-6) 08/04/25 14:56
Basophils % 0.4 % (0-2) 03/02/25 14:56
Lactic Acid 1.1 mmol/L (0.7-2.0) 03/02/25 20:16
Microbiology Results
Micro:
03/03/25 02:13 Respiratory Culture - Pending
Sputum Gram Stain - Preliminary
03/03/25 01:14 MRSA Screen - Pending
Nose
03/02/25 14:56 Blood Culture - Pending
Blood/Venous
Assessment / Plan
1. Multifocal pneumonia on CT chest with no PE, bibasilar opacities, bronchial thickening,sputum results pending
2. Continue Cefepime/Vancomycin for now pending culture results with discontinuation of Vancomycin as soon as possible in setting of renal status concern
3. Patient currently afebrile without leukocytosis
4. Patient immune compromised in setting of MALT lymphoma and chronic low dose steroid
5. Patient with history of lung cancer with lobectomy left upper
6. Recent weight loss, chronic cough with thick sputum production currently with adequate oxygenation
Thank you for calling Infectious Disease Consultation
The ID team will continue to follow with you.
Please call with any concerns or questions
Care Review
Total Time Spent with Patient (in minutes): 55
[2025-03-03 14:56] LABS: Hepatitis C Antibody Negative (Negative)
[2025-03-03 15:10] VITALS: BP 134/81
[2025-03-03 15:25] LABS: COVID-19 Antigen Negative (Negative)
--- NOTE | 2025-03-03 16:12 | PTCARENOTE ---
Patient ambulating with a steady gait. Patient took a shower today. Patient with an occasional harsh productive cough-Tessalon jenny given with some relief. Patient c/o chest soreness from coughing, but denies need for pain med at this time.
[2025-03-03] MEDS: LIPITOR 10 MG PO (17:09)
[2025-03-03] MEDS: LOVENOX 40 MG SC (17:09)
[2025-03-03] MEDS: OCEAN, SALINE MIST 50 SPRAYS NASAL ×2 (17:41→20:29)
[2025-03-03] MEDS: SODIUM CHLORIDE 3% FOR INHALATION 1 VIAL INH (19:50)
[2025-03-03] MEDS: PULMICORT 0.5 MG INH (19:50)
[2025-03-03] MEDS: VIBRAMYCIN 100 MG PO (20:24)
[2025-03-03] MEDS: FLOMAX 0.8 MG PO (20:24)
[2025-03-03 23:49] VITALS: BP 103/59
[2025-03-04] MEDS: STERILE WATER FOR INJECTION 10 ML IV ×3 (05:12→23:00)
[2025-03-04] MEDS: MAXIPIME 1000 MG IV ×3 (05:13→23:00)
[2025-03-04] MEDS: VANCOCIN 200 IV (05:14)
[2025-03-04 07:00] VITALS: BP 121/72
[2025-03-04 07:55] LABS: Hematocrit 32.0 % (39.0-52.0); Hemoglobin 10.5 g/dL (13.0-18.0); Mean Corp Hgb Conc. 32.8 g/dL (33.0-37.0); Mean Corpuscular Volume 85.8 fL (80.0-94.0); Platelet Count 230 10^3/uL (130-400); Red Cell Dist. Width 13.7 % (11.5-14.5)
[2025-03-04] MEDS: PULMICORT 0.5 MG INH ×2 (08:17→20:04)
[2025-03-04] MEDS: DUONEB 3 ML INH ×4 (08:17→20:04)
[2025-03-04] MEDS: SODIUM CHLORIDE 3% FOR INHALATION 1 VIAL INH ×2 (08:17→20:04)
[2025-03-04] MEDS: NSS 1000 IV (08:19)
[2025-03-04] MEDS: MUCINEX 1200 MG PO ×2 (08:20→19:12)
[2025-03-04] MEDS: COZAAR 50 MG PO (08:20)
[2025-03-04] MEDS: VIBRAMYCIN 100 MG PO ×2 (08:22→19:12)
[2025-03-04] MEDS: PROTONIX 40 MG PO (08:22)
[2025-03-04] MEDS: OCEAN, SALINE MIST 50 SPRAYS NASAL ×3 (08:23→17:16)
[2025-03-04 08:24] LABS: Blood Urea Nitrogen 16 mg/dl (9-20); Calcium 8.7 mg/dl (8.4-10.2); Carbon Dioxide 21 mmol/L (22-30); Chloride 109 mmol/L (98-107); Estimated Creatinine Clearance 53 ml/min; Glucose 153 mg/dl (70-99); Magnesium 2.2 mg/dl (1.6-2.3); Potassium 4.6 mmol/L (3.5-5.1); Sodium 140 mmol/L (135-145); eGFR > 60.00
[2025-03-04] MEDS: DESENEX/MITRAZOL/ZEASORB 1 APPLIC TOPICAL ×2 (08:26→19:21)
--- NOTE | 2025-03-04 08:26 | W.PN.PUL.V3 ---
Today's Communication / Plan
-
.
Continue mucus clearing devices.
Mucolytic's
Nebulizers.
Antibiotics..
Steroids
Outpatient pulmonary and ENT evaluation
Assessment
-
74-year-old non-smoking male with a history of MALT lymphoma on Rituxan, lung cancer status post lobectomy at [facility] 2023, hypertension, hyperlipidemia who is complained of productive cough treated with antibiotics and steroids in the outpatient
setting without resolution and now admitted with CT evidence for multifocal pneumonia-pulmonary consulted for shortness of breath/cough/wheeze/pneumonia 03/03/2025.
Multifocal pneumonia in immunocompromised patient on Rituxan
Chronic cough
Postnasal drip/sinusitis
Suspected asthma with mild to moderate acute exacerbation-significant wheezing on exam
Mild normocytic anemia-hemoglobin 10.5
Acute sinusitis
Conditions present prior to admission:
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
Lung cancer status post lobectomy 2023-[facility].
Hypertension.
Hyperlipidemia.
Plan
Respiratory decompensation likely related to bronchitis/pneumonia-patient reports most recent cultures usual respiratory kori, however, sputum culture as an outpatient also revealed strep pneumonia/haemophilus influenza treated with extensive
Ceftin with initial improvement and then resurgence of symptoms
Extensive outpatient workup and previous treatments were reviewed
Supplemental oxygen as needed
Assess discharge supplemental oxygen needs
Aspiration precautions
Mucolytic's continue
Nebulizers continue
Saline nebulizers continues
No change in Agml-Lofctn-prhhtnxwqs changed to prednisone 40 mg with slow taper
Mucus clearing devices-Acapella.
Incentive spirometry
Vest therapy- continue for an additional 24 hours
Sputum culture-including fungal and atypicals.
Cultures reviewed.
Sputum culture 03/03/25-usual respiratory kori-unrevealing
Urine Legionella and streptococcal antigens negative.
Influenza negative
Empiric antibiotics-cefepime and vancomycin initiated
Add atypical coverage with doxycycline
Tailor antibiotics according to cultures
Infectious disease consultation- noted and correspondence reviewed
Saline nasal irrigations
CT sinuses 03/03/25-mild sinusitis, left frontal sinus, left anterior ethmoid air cells and right posterior ethmoid 8 cells which appears new from 2023
Consider ENT evaluation outpatient
DVT prophylaxis-on Lovenox
GI prophylaxis-on pantoprazole
Nutrition
Early mobilization
Outpatient pulmonary [id number] saw Dr. Willingham 01/27/2025 and then Mariam Loco CNP 02/16/2025 and has appointment with Mariam on 04/20/25-patient would like to see Dr. Willingham next
Diagnostic data:
Chest x-ray 04/13/2023-NAD
Chest x-ray 10/22/2024-NAD
Chest x-ray 12/26/2024-NAD
Chest x-ray 01/28/2025-NAD
Chest x-ray 02/12/2025-NAD
CT chest 03/02/2025-no evidence for pulm embolism, mild bronchial wall thickening and bibasilar opacifications which likely represent multifocal pneumonia
CT sinus 10/31/23-severe right nasal septal deviation, mild mucosal thickening ethmoid sinuses
Stress echocardiogram 10/31/23-normal stress echocardiogram, EF 55-60% and postexercise 65-70%
Subjective Data
-
Date of Service:
Date of Service: March 04, 2025
Chief Complaint: Pulmonary Follow Up and Dyspnea Follow Up
Subjective:
Still with chest congestion, some wheezing, productive cough, no chest pain or abdominal pain
Review of Systems
General: Other (Per HPI)
Objective Data
Data Reviewed
Vital Signs / I&O:
Vital Signs
Temp Pulse Resp BP Pulse Ox
98.0 F 75 16 103/59 97
03/03/25 23:49 03/04/25 08:23 03/04/25 08:23 03/03/25 23:49 03/04/25 08:23
Intake and Output
03/03/25 03/04/25 03/05/25
06:59 06:59 06:59
Intake Total 3292 / 3292
Balance 3292 / 3292
SaO2: 97
Labs/Micro/Reports
Lab Data
03/04/25 07:13
03/04/25 07:13
Microbiology
03/03/25 17:12 Sputum Gram Stain - Preliminary
03/03/25 15:25 Urine Legionella Urinary Antigen - Final
Negative for Legionella pneumophila Serogroup 1 antigen.
A negative result does not rule out the possiblity of
Legionella infection due to other serogroups or species of
Legionella. Clinical correlation is recommended.
03/03/25 15:25 Urine Streptococcus pneumoniae Antigen (M - Final
Negative for Streptococcus pneumoniae antigen.
A negative result does not exclude infection with
Streptococcus pneumoniae. Clinical correlation is
recommended.
03/03/25 14:46 Nasal Swab Influenza Types A & B (ALIA) - Final
Negative for Influenza A & B, NAAT
Negative results must be combined with clinical observations
and patient history.
Nucleic Acid Amplification test (NAAT)performed on the
[employer] platform.
03/02/25 14:56 Blood/Venous Blood Culture - Preliminary
No Growth in 24 hours- Final report to follow
03/03/25 02:13 Sputum Gram Stain - Preliminary
[2025-03-04] MEDS: NON-FORMULARY ITEM 2 DROP OPHTH (08:27)
--- NOTE | 2025-03-04 08:45 | PHA.VAN.FU ---
Addendum entered and electronically signed by Kaela Posada [facility] 03/05/25 08:37:
Agree with assessment and plan
Original Note:
Vancomycin Assessment / Plan
- Assessment
Renal Function: Stable
WBC's are: WNL
In the past 24 hrs, patient has been: Afebrile
Concomitant Antimicrobials: cefepime
- Dosing Plan
Continue: 1000mg q24h
- Monitoring Plan
No level(s) ordered at this time: consider level within next few days once at steady state
- Follow Up
Pharmacy will continue to follow.
Vancomycin Follow UP
- -
Patient Age: 74
Patient Sex: Male
Vancomycin Day #: 2
Indication: Pulmonary/Respiratory
Requesting Provider: Dr. Barboza
Pertinent Antimicrobial Allergies:
NKDA
Height / Weight:
Height 5 ft 4 in
Actual Weight 62.766 kg
Pertinent Past Medical History: MALT lymphoma, lung cancer
- Vital Signs / Lab Results
Temp Pulse Resp BP Pulse Ox
97.9 F 75 16 121/72 97
03/04/25 07:00 03/04/25 08:23 03/04/25 08:23 03/04/25 07:00 03/04/25 08:26
Lab Results - Hematology
03/02/25 03/03/25 03/04/25
14:56 06:27 07:13
WBC 11.0 H 10.1 10.6
Lab Results - Chemistry
03/02/25 03/03/25 03/04/25
14:56 06:27 07:13
BUN 19 13 16
Creatinine 1.1 1.1 1.0
Estimated Creat Clear 48 53
Albumin 4.4
03/02/25 03/02/25
14:46 20:16
Lactic Acid Cancelled 1.1
Microbiology Results
03/03/25 01:14 MRSA Screen - Final
Nose No Methicillin Resistant Staphylococcus aureus isolated.
03/03/25 17:12 Gram Stain - Preliminary
Sputum
03/03/25 15:25 Legionella Urinary Antigen - Final
Urine Negative for Legionella pneumophila Serogroup 1 antigen.
A negative result does not rule out the possiblity of
Legionella infection due to other serogroups or species of
Legionella. Clinical correlation is recommended.
Streptococcus pneumoniae Antigen (M - Final
Negative for Streptococcus pneumoniae antigen.
A negative result does not exclude infection with
Streptococcus pneumoniae. Clinical correlation is
recommended.
03/03/25 14:46 Influenza Types A & B (ALIA) - Final
Nasal Swab Negative for Influenza A & B, NAAT
Negative results must be combined with clinical observations
and patient history.
Nucleic Acid Amplification test (NAAT)performed on the
[employer] platform.
03/02/25 14:56 Blood Culture - Preliminary
Blood/Venous No Growth in 24 hours- Final report to follow
03/03/25 02:13 Gram Stain - Preliminary
Sputum
--- NOTE | 2025-03-04 09:08 | W.PN.HOSP.TC ---
Today's Communication/Plan
-
see A/P
Assessment / Plan
Assessment / Plan
HPI: 74 yo M PMH MALT lymphoma on Rituxan, hx of lung cancer s/p lobectomy 2023 ([place]) complicated by collapsed lung, HTN, HLD; presented to ER for fever and cough. He reports symptoms began last Sunday. Cough is productive of green sputum. Also
reported SOB and upper/lower chest pain. He report prior similar symptoms with courses of doxycycline and Keflex without improvement. Denies any other complaints
CT imaging in ER concerning for multifocal pneumonia - patient placed on IV antibiotics and admitted.
A/P:
# Multifocal pneumonia
# Underlying hx of lung cancer s/p lobectomy 2023 ([place]) with collapsed lung complication
no improvement despite doxycycline and keflex courses
CT chest: mild bronchial wall thickening with bibasilar opacities which likely represents multifocal pneumonia. No PE.
blood culture so far negative, MRSA screen negative, urine Strep and Legionella Ag negative, COVID/Flu negative
follow resp culture
Cont IV Vanco/Cefepime, added doxycycline per Pulm
scheduled and prn nebs
IS/Acapella/Mucolytics
Cont chest percussion
Pulm and ID on board
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
# GERD - PPI
# HLD - statin
# Essential HTN
on Chlorthalidone/Losartan
DVT ppx: Lovenox
Code: Full
Anticipated Discharge: 24 - 48 hours
Subjective/Interval History
-
Date of Service: March 04, 2025
Objective Data
-
Labs:
Laboratory Results
03/04/25
07:13
WBC 10.6
Hgb 10.5 L
Hct 32.0 L
Plt Count 230
Sodium 140
Potassium 4.6
Chloride 109 H
Carbon Dioxide 21 L
BUN 16
Creatinine 1.0
Glucose 153 H
Calcium 8.7
Vital Signs:
Vital Signs
Temp Pulse Resp BP Pulse Ox
36.6 C 75 16 121/72 97
03/04/25 07:00 03/04/25 08:23 03/04/25 08:23 03/04/25 07:00 03/04/25 08:26
I&O
03/03/25 03/04/25 03/05/25
06:59 06:59 06:59
Intake Total 3292 / 3292
Balance 3292 / 3292
Review of Systems
-
History Source: Patient
Respiratory: Reports Cough (improved ) and Trouble Breathing (improved )
Physical Exam
-
General: Well Developed, Well Nourished, No Apparent Distress, Comfortable and Conversant; Negative Respiratory Distress
HEENT: Normocephalic, Atraumatic, Nose Appears Normal and Ears Appear Normal; Negative Oxygen
Respiratory: Clear to Auscultation, Rhonchi (improved ), Non Labored Respirations and Other (harsh breath sound much resolved ); Negative Accessory Resp Muscle Use
Cardiac: Regular Rhythm and S1/S2
GI: Soft, Nontender, Nondistended and Normal Bowel Sounds
Skin: Warm and Dry
Neuro: Awake, Alert and Oriented
Psych: Calm and Intact Judgement/Insight
Data Reviewed
-
CT Scan: Report Reviewed by me
Labs: Labs Reviewed by me
[2025-03-04] MEDS: SOLU-MEDROL PF 40 MG IV ×2 (12:26→23:16)
[2025-03-04 15:00] VITALS: BP 153/98
--- NOTE | 2025-03-04 16:55 | W.PN.ID1 ---
Date of Service
Date of Service: March 04, 2025
Today's Communication
with patient and respiratory therapy
Assessment / Plan
1. Multifocal pneumonia on CT chest with no PE, bibasilar opacities, bronchial thickening,sputum results pending
2. Continue Cefepime/ discontinuation of Vancomycin in setting of negative MRSA screen
3. Patient currently afebrile without leukocytosis
4. Patient immune compromised in setting of MALT lymphoma and chronic low dose steroid
5. Patient with history of lung cancer with lobectomy left upper
6. Recent weight loss, chronic cough with thick sputum production currently with adequate oxygenation continue chest PT for secretions
Thank you for calling Infectious Disease Consultation
The ID team will continue to follow with you.
Please call with any concerns or questions
Chief Complaint
-: Pneumonia (bilateral with coontinued sputum production with cough somewhat diminished)
Subjective / Review of Systems
Review of Systems: No Fever, No Chills, No Headache, No Pharyngitis, No Stiff Neck, No Swollen Lymph Nodes, Cough, Sputum Production, Chest Pain, No Palpitations, No Abdominal Pain, No Nausea, No Vomiting, No Diarrhea, No Dysuria, No Joint Pain and
No Skin Rash
Vital Signs / Physical Exam
Vital Signs
Vital Signs
Temp Pulse Resp BP Pulse Ox
98.0 F 76 16 153/98 98
03/04/25 15:00 03/04/25 15:34 03/04/25 15:34 03/04/25 15:00 03/04/25 15:34
Physical Exam
Constitutional: No Acute Distress, Comfortable, Chronically Ill, Non-toxic and Cachetic
Head: Normocephalic
Eyes: Pupils Equal, Pupils Round, No Conjunctival Hemorrhage and Sclera Anicteric
Oropharyngeal: Benign
Cardiovascular: Regular Rate
Pulmonary: Coarse and Non Labored
Gastrointestinal: Soft, Non Tender, Non Distended and Decreased Bowel Sounds
Extremities: Pulses
Skin: Warm and Dry
Wound: None
Neurological: Awake, Alert, Oriented, AO x 3 and No Motor Deficits
Psychological: Calm
Objective Data
Lab Data
Lab Results
03/04/25 07:13
03/04/25 07:13
Estimated Creat Clear 53 ml/min 03/04/25 07:13
Lactic Acid 1.1 mmol/L (0.7-2.0) 03/02/25 20:16
Total Bilirubin 0.9 mg/dl (0.2-1.3) 03/02/25 14:56
AST 20 U/L (17-59) 03/02/25 14:56
ALT 17 U/L (0-50) 03/02/25 14:56
Alkaline Phosphatase 81 U/L (38-126) 03/02/25 14:56
Most recent labs reviewed.
Microbiology: Report Reviewed
Micro Results:
03/02/25 14:56 Blood Culture - Preliminary
Blood/Venous No Growth in 48 hours- Final report to follow
03/03/25 17:12 Respiratory Culture - Preliminary
Sputum Usual Respiratory Leida
Gram Stain - Preliminary
03/03/25 02:13 Respiratory Culture - Preliminary
Sputum Gram Stain - Preliminary
03/03/25 01:14 MRSA Screen - Final
Nose No Methicillin Resistant Staphylococcus aureus isolated.
03/03/25 15:25 Legionella Urinary Antigen - Final
Urine Negative for Legionella pneumophila Serogroup 1 antigen.
A negative result does not rule out the possiblity of
Legionella infection due to other serogroups or species of
Legionella. Clinical correlation is recommended.
Streptococcus pneumoniae Antigen (M - Final
Negative for Streptococcus pneumoniae antigen.
A negative result does not exclude infection with
Streptococcus pneumoniae. Clinical correlation is
recommended.
03/03/25 14:46 Influenza Types A & B (ALIA) - Final
Nasal Swab Negative for Influenza A & B, NAAT
Negative results must be combined with clinical observations
and patient history.
Nucleic Acid Amplification test (NAAT)performed on the
[employer] platform.
Chest X-Ray: Report Reviewed
CT Scan: Report Reviewed
Care Review
Plan reviewed with: Other (speech therapy)
Total Time Spent with Patient (in minutes): 35
[2025-03-04] MEDS: LIPITOR 10 MG PO (17:14)
[2025-03-04] MEDS: LOVENOX 40 MG SC (17:14)
[2025-03-04] MEDS: FLOMAX 0.8 MG PO (19:12)
[2025-03-04] MEDS: TESSALON PERLES 200 MG PO (19:12)
[2025-03-04] MEDS: NON-FORMULARY ITEM 1 DROP OPHTH (19:13)
[2025-03-04] MEDS: OCEAN, SALINE MIST 2 SPRAYS NASAL (23:00)
[2025-03-04 23:45] VITALS: BP 127/76
[2025-03-05] MEDS: MAXIPIME 1000 MG IV ×3 (06:22→22:57)
[2025-03-05] MEDS: VANCOCIN 200 IV (06:22)
[2025-03-05] MEDS: STERILE WATER FOR INJECTION 10 ML IV ×3 (06:22→22:55)
[2025-03-05 06:24] LABS: Hematocrit 30.8 % (39.0-52.0); Hemoglobin 10.3 g/dL (13.0-18.0); Mean Corp Hgb Conc. 33.4 g/dL (33.0-37.0); Mean Corpuscular Volume 84.8 fL (80.0-94.0); Platelet Count 243 10^3/uL (130-400); Red Cell Dist. Width 13.7 % (11.5-14.5)
[2025-03-05 06:40] LABS: Blood Urea Nitrogen 19 mg/dl (9-20); Calcium 9.8 mg/dl (8.4-10.2); Carbon Dioxide 23 mmol/L (22-30); Chloride 109 mmol/L (98-107); Estimated Creatinine Clearance 48 ml/min; Glucose 127 mg/dl (70-99); Potassium 4.7 mmol/L (3.5-5.1); Sodium 139 mmol/L (135-145); eGFR > 60.00
[2025-03-05 07:00] VITALS: BP 148/93
[2025-03-05] MEDS: DUONEB 3 ML INH ×4 (07:56→19:54)
[2025-03-05] MEDS: PULMICORT 0.5 MG INH ×2 (07:56→19:54)
[2025-03-05] MEDS: SODIUM CHLORIDE 3% FOR INHALATION 1 VIAL INH ×2 (08:03→19:54)
[2025-03-05] MEDS: NON-FORMULARY ITEM 2 DROP OPHTH (08:06)
[2025-03-05] MEDS: OCEAN, SALINE MIST 50 SPRAYS NASAL ×2 (08:06→11:29)
[2025-03-05] MEDS: COZAAR 50 MG PO (08:06)
[2025-03-05] MEDS: VIBRAMYCIN 100 MG PO ×2 (08:07→20:53)
[2025-03-05] MEDS: PROTONIX 40 MG PO (08:07)
[2025-03-05] MEDS: MUCINEX 1200 MG PO ×2 (08:07→20:53)
[2025-03-05] MEDS: COLACE 100 MG PO ×2 (08:08→20:57)
[2025-03-05] MEDS: DESENEX/MITRAZOL/ZEASORB 1 APPLIC TOPICAL ×2 (08:08→20:59)
--- NOTE | 2025-03-05 08:58 | W.PN.HOSP.TC ---
Today's Communication/Plan
-
see A/P
Assessment / Plan
Assessment / Plan
HPI: 74 yo M PMH MALT lymphoma on Rituxan, hx of lung cancer s/p lobectomy 2023 ([place]) complicated by collapsed lung, HTN, HLD; presented to ER for fever and cough. He reports symptoms began last Sunday. Cough is productive of green sputum. Also
reported SOB and upper/lower chest pain. He report prior similar symptoms with courses of doxycycline and Keflex without improvement. Denies any other complaints
CT imaging in ER concerning for multifocal pneumonia - patient placed on IV antibiotics and admitted.
A/P:
# Multifocal pneumonia
# Underlying hx of lung cancer s/p lobectomy 2023 ([place]) with collapsed lung complication
no improvement despite doxycycline and keflex courses
CT chest: mild bronchial wall thickening with bibasilar opacities which likely represents multifocal pneumonia. No PE.
blood culture so far negative, MRSA screen negative, urine Strep and Legionella Ag negative, COVID/Flu negative
respiratory culture growing normal kori
Cont IV Vanco/Cefepime, added doxycycline per Pulm
Cont scheduled and prn nebs
IS/Acapella/Mucolytics, cont chest percussion
Pulm and ID on board
started Solumedrol per Pulm
# Leucocytosis likely due to steroid effect
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
# GERD - PPI
# HLD - statin
# Essential HTN
on Chlorthalidone/Losartan
DVT ppx: Lovenox
Code: Full
DW pulm
DW on the phone
total time spent 51 min
Anticipated Discharge: 24 - 48 hours
Subjective/Interval History
-
Date of Service: March 05, 2025
Objective Data
-
Labs:
Laboratory Results
03/05/25
05:21
WBC 15.3 H
Hgb 10.3 L
Hct 30.8 L
Plt Count 243
Sodium 139
Potassium 4.7
Chloride 109 H
Carbon Dioxide 23
BUN 19
Creatinine 1.1
Glucose 127 H
Calcium 9.8
Vital Signs:
Vital Signs
Temp Pulse Resp BP Pulse Ox
36.7 C 76 16 148/93 99
03/05/25 07:00 03/05/25 08:04 03/05/25 08:04 03/05/25 07:00 03/05/25 08:04
I&O
03/04/25 03/05/25 03/06/25
06:59 06:59 06:59
Intake Total 3292 / 3292 1660 / 1660
Balance 3292 / 3292 1660 / 1660
Review of Systems
-
History Source: Patient
Respiratory: Reports Cough and Trouble Breathing
Physical Exam
-
General: Well Developed, Well Nourished, No Apparent Distress, Comfortable and Conversant; Negative Respiratory Distress
HEENT: Normocephalic, Atraumatic, Nose Appears Normal and Ears Appear Normal; Negative Oxygen
Respiratory: Clear to Auscultation, Rhonchi (improved ), Non Labored Respirations and Other (harsh breath sound); Negative Accessory Resp Muscle Use
Cardiac: Regular Rhythm and S1/S2
GI: Soft, Nontender, Nondistended and Normal Bowel Sounds
Skin: Warm and Dry
Neuro: Awake, Alert and Oriented
Psych: Calm and Intact Judgement/Insight
Data Reviewed
-
CT Scan: Report Reviewed by me
Labs: Labs Reviewed by me
--- NOTE | 2025-03-05 10:18 | W.PN.PUL.V3 ---
Today's Communication / Plan
-
No change in steroids.
Continue antibiotics.
Continue nebulizers and mucus clearing maneuvers
Updated
Assessment
-
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
setting without resolution and now admitted with CT evidence for multifocal pneumonia-pulmonary consulted for shortness of breath/cough/wheeze/pneumonia 03/03/2025.
Multifocal pneumonia in immunocompromised patient on Rituxan
Chronic cough
Postnasal drip/sinusitis
Suspected asthma with mild to moderate acute exacerbation-significant wheezing on exam
Mild normocytic anemia-hemoglobin 10.5
Acute sinusitis
Conditions present prior to admission:
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
Lung cancer status post lobectomy 2023-[facility].
Hypertension.
Hyperlipidemia.
Plan
Respiratory decompensation likely related to bronchitis/pneumonia-patient reports most recent cultures usual respiratory leida, however, sputum culture as an outpatient also revealed strep pneumonia/haemophilus influenza treated with extensive
Ceftin with initial improvement and then resurgence of symptoms
Extensive outpatient workup and previous treatments were reviewed
Supplemental oxygen as needed-95% on room air
Assess discharge supplemental oxygen needs
Aspiration precautions
Mucolytic's continue
Nebulizers continue-DuoNeb and budesonide
Saline nebulizers continues
No change in Etcp-Tcglqv-fmlxkufbsx changed to prednisone 40 mg with slow taper
Mucus clearing devices-Acapella.
Incentive spirometry
Vest therapy- continue for an additional 24 hours
Sputum culture-including fungal and atypicals.
Sputum thus far unrevealing
Cultures reviewed
Sputum culture 03/03/25-usual respiratory leida-unrevealing.
Sputum culture 03/05/25-many WBCs, mixed bacteria
Urine Legionella and streptococcal antigens negative.
Influenza negative
Empiric antibiotics-cefepime and vancomycin initiated-now cefepime and doxycycline
Add atypical coverage with doxycycline
Tailor antibiotics according to cultures
Infectious disease consultation- noted and correspondence reviewed
Saline nasal irrigations continue
CT sinuses 03/03/25-mild sinusitis, left frontal sinus, left anterior ethmoid air cells and right posterior ethmoid 8 cells which appears new from 2023
Consider ENT evaluation outpatient
DVT prophylaxis-on Lovenox
GI prophylaxis-on pantoprazole
Nutrition
Early mobilization..
Reviewed with primary team
Dr. Boland called lzri-Dddssb-[id number] and updated on current clinical progress . 03/05/25
Outpatient pulmonary lszqsh-sw-fbeg saw Dr. Willingham 01/27/2025 and then Mariam Loco CNP 02/16/2025 and has appointment with Mariam on 04/20/25-patient would like to see Dr. Willingham next
Diagnostic data:
Chest x-ray 04/13/2023-NAD
Chest x-ray 10/22/2024-NAD
Chest x-ray 12/26/2024-NAD
Chest x-ray 01/28/2025-NAD
Chest x-ray 02/12/2025-NAD
CT chest 03/02/2025-no evidence for pulm embolism, mild bronchial wall thickening and bibasilar opacifications which likely represent multifocal pneumonia
CT sinus 10/31/23-severe right nasal septal deviation, mild mucosal thickening ethmoid sinuses
Stress echocardiogram 10/31/23-normal stress echocardiogram, EF 55-60% and postexercise 65-70%
Subjective Data
-
Date of Service:
Date of Service: March 05, 2025
Chief Complaint: Pulmonary Follow Up and Dyspnea Follow Up
Subjective:
Feels about the same, occasional green mucus 'plugs', still with some wheezing, shortness of breath, 'did not sleep well', no chest pain or abdominal pain
Review of Systems
General: Other ( per HPI)
Objective Data
Data Reviewed
Vital Signs / I&O:
Vital Signs
Temp Pulse Resp BP Pulse Ox
98.0 F 76 16 148/93 99
03/05/25 07:00 03/05/25 08:04 03/05/25 08:04 03/05/25 07:00 03/05/25 08:04
Intake and Output
03/04/25 03/05/25 03/06/25
06:59 06:59 06:59
Intake Total 3292 / 3292 1660 / 1660
Balance 3292 / 3292 1660 / 1660
SaO2: 99
Labs/Micro/Reports
Lab Data
03/05/25 05:21
03/05/25 05:21
Microbiology
03/02/25 14:56 Blood/Venous Blood Culture - Preliminary
No Growth in 48 hours- Final report to follow
03/03/25 17:12 Sputum Respiratory Culture - Preliminary
Usual Respiratory Leida
03/03/25 17:12 Sputum Gram Stain - Preliminary
03/03/25 02:13 Sputum Respiratory Culture - Preliminary
03/03/25 02:13 Sputum Gram Stain - Preliminary
03/03/25 01:14 Nose MRSA Screen - Final
No Methicillin Resistant Staphylococcus aureus isolated.
03/03/25 15:25 Urine Legionella Urinary Antigen - Final
Negative for Legionella pneumophila Serogroup 1 antigen.
A negative result does not rule out the possiblity of
Legionella infection due to other serogroups or species of
Legionella. Clinical correlation is recommended.
03/03/25 15:25 Urine Streptococcus pneumoniae Antigen (M - Final
Negative for Streptococcus pneumoniae antigen.
A negative result does not exclude infection with
Streptococcus pneumoniae. Clinical correlation is
recommended.
03/03/25 14:46 Nasal Swab Influenza Types A & B (ALIA) - Final
Negative for Influenza A & B, NAAT
Negative results must be combined with clinical observations
and patient history.
Nucleic Acid Amplification test (NAAT)performed on the
[employer] platform.
[2025-03-05] MEDS: SOLU-MEDROL PF 40 MG IV (11:27)
--- NOTE | 2025-03-05 14:01 | CM ---
Chart reviewed. Care ongoing at this time. On room air.
Cont IV abx
Vest therapy cont for another 24 hours
Plan: Home, will watch for needs
[2025-03-05 15:00] VITALS: BP 115/78
[2025-03-05] MEDS: OCEAN, SALINE MIST 2 SPRAYS NASAL ×2 (17:04→22:54)
[2025-03-05] MEDS: LIPITOR 10 MG PO (17:05)
[2025-03-05] MEDS: LOVENOX 40 MG SC (17:05)
[2025-03-05 18:30] VITALS: BP 150/79
--- NOTE | 2025-03-05 19:58 | W.PN.ID1 ---
Date of Service
Date of Service: March 05, 2025
Today's Communication
patient with leukocytosis but afebrile and clinically improving
Assessment / Plan
1. Multifocal pneumonia on CT chest with no PE, bibasilar opacities, bronchial thickening,sputum results available
2. Continue Cefepime/ discontinuation of Vancomycin in setting of negative MRSA screen, Doxycycline added for atypicals
3. Patient currently afebrile with leukocytosis
4. Patient immune compromised in setting of MALT lymphoma and chronic low dose steroid
5. Patient with history of lung cancer with lobectomy left upper
6. Recent weight loss, chronic cough with thick sputum production somewhat decreased currently with adequate oxygenation, continue chest PT for secretions
7. Consider treating mild oral thrush
Thank you for calling Infectious Disease Consultation
The ID team will continue to follow with you.
Please call with any concerns or questions
Chief Complaint
-: Pneumonia (bilateral with coontinued sputum production with cough somewhat diminished)
Subjective / Review of Systems
Review of Systems: No Fever, No Chills, No Headache, No Pharyngitis, No Stiff Neck, No Swollen Lymph Nodes, Cough, Sputum Production (but decreased with sputum now manager drive in color), No Chest Pain, No Palpitations, No Abdominal Pain, No Nausea, No
Vomiting, No Diarrhea, No Dysuria, No Joint Pain and No Skin Rash
Vital Signs / Physical Exam
Vital Signs
Vital Signs
Temp Pulse Resp BP Pulse Ox
98.3 F 83 18 150/79 95
03/05/25 18:30 03/05/25 18:30 03/05/25 18:30 03/05/25 18:30 03/05/25 18:30
Physical Exam
Constitutional: No Acute Distress, Well Developed, Comfortable, Chronically Ill, Non-toxic and Cachetic
Head: Normocephalic
Eyes: Pupils Equal, Pupils Round, No Conjunctival Hemorrhage and Sclera Anicteric
Oropharyngeal: Thrush (mild posterior tongue might benefit from nystatin swish swallow // Neisha's Magic Mouthwash or similar)
Cardiovascular: Regular Rate
Pulmonary: Coarse and Non Labored (decreased at bases bilaterally)
Gastrointestinal: Soft, Non Tender, Non Distended, Decreased Bowel Sounds, No Rebound and No Guarding
Extremities: Pulses
Skin: Warm and Dry
Wound: None
Neurological: Awake, Alert, Oriented and AO x 3 (gait not observed)
Psychological: Calm (conversant, cooperative , has not used Chest PT vest nor incentive spirometer much )
Objective Data
Lab Data
Lab Results
03/05/25 05:21
03/05/25 05:21
Estimated Creat Clear 48 ml/min 03/05/25 05:21
Lactic Acid 1.1 mmol/L (0.7-2.0) 03/02/25 20:16
Total Bilirubin 0.9 mg/dl (0.2-1.3) 03/02/25 14:56
AST 20 U/L (17-59) 03/02/25 14:56
ALT 17 U/L (0-50) 03/02/25 14:56
Alkaline Phosphatase 81 U/L (38-126) 03/02/25 14:56
Most recent labs reviewed.
Microbiology: Report Reviewed
Micro Results:
03/02/25 14:56 Blood Culture - Preliminary
Blood/Venous No Growth in 72 hours- Final report to follow
03/03/25 02:13 Respiratory Culture - Final
Sputum Gram Stain - Final
03/03/25 17:12 Respiratory Culture - Final
Sputum Usual Respiratory Leida
Gram Stain - Final
03/05/25 10:09 Respiratory Culture - Pending
Sputum Gram Stain - Preliminary
03/03/25 01:14 MRSA Screen - Final
Nose No Methicillin Resistant Staphylococcus aureus isolated.
03/03/25 15:25 Legionella Urinary Antigen - Final
Urine Negative for Legionella pneumophila Serogroup 1 antigen.
A negative result does not rule out the possiblity of
Legionella infection due to other serogroups or species of
Legionella. Clinical correlation is recommended.
Streptococcus pneumoniae Antigen (M - Final
Negative for Streptococcus pneumoniae antigen.
A negative result does not exclude infection with
Streptococcus pneumoniae. Clinical correlation is
recommended.
03/03/25 14:46 Influenza Types A & B (ALIA) - Final
Nasal Swab Negative for Influenza A & B, NAAT
Negative results must be combined with clinical observations
and patient history.
Nucleic Acid Amplification test (NAAT)performed on the
[employer] platform.
Care Review
Total Time Spent with Patient (in minutes): 35
[2025-03-05] MEDS: NON-FORMULARY ITEM OPHTH (21:10)
[2025-03-05] MEDS: FLOMAX 0.8 MG PO (22:54)
[2025-03-05 23:14] VITALS: BP 101/75
[2025-03-06] MEDS: SOLU-MEDROL PF 40 MG IV ×2 (01:12→12:31)
[2025-03-06] MEDS: MAXIPIME 1000 MG IV ×3 (06:00→21:04)
[2025-03-06] MEDS: STERILE WATER FOR INJECTION 10 ML IV ×3 (06:00→21:04)
[2025-03-06 07:00] VITALS: BP 154/86
[2025-03-06] MEDS: DUONEB 3 ML INH ×4 (07:51→20:11)
[2025-03-06] MEDS: SODIUM CHLORIDE 3% FOR INHALATION 1 VIAL INH ×2 (07:51→20:11)
[2025-03-06] MEDS: PULMICORT 0.5 MG INH ×2 (07:51→20:11)
[2025-03-06] MEDS: PROTONIX 40 MG PO (08:19)
[2025-03-06] MEDS: COLACE 100 MG PO ×2 (08:19→20:05)
[2025-03-06] MEDS: VIBRAMYCIN 100 MG PO ×2 (08:19→20:05)
[2025-03-06] MEDS: MUCINEX 1200 MG PO ×2 (08:19→20:05)
[2025-03-06] MEDS: COZAAR 50 MG PO (08:22)
[2025-03-06] MEDS: OCEAN, SALINE MIST 1 SPRAYS NASAL (08:25)
[2025-03-06] MEDS: NON-FORMULARY ITEM OPHTH ×2 (08:26→20:12)
[2025-03-06] MEDS: DESENEX/MITRAZOL/ZEASORB 1 APPLIC TOPICAL ×2 (08:27→21:08)
[2025-03-06 09:39] LABS: Hematocrit 35.5 % (39.0-52.0); Hemoglobin 11.8 g/dL (13.0-18.0); Mean Corp Hgb Conc. 33.2 g/dL (33.0-37.0); Mean Corpuscular Volume 84.1 fL (80.0-94.0); Nucleated Red Blood Cells % 0 % (-); Platelet Count 290 10^3/uL (130-400); Red Cell Dist. Width 13.9 % (11.5-14.5)
--- NOTE | 2025-03-06 10:55 | W.PN.PUL.V3 ---
Today's Communication / Plan
-
Wean oxygen.
Change to oral prednisone in the next 24 hours-slow taper- outlined in note.
Extended course of antibiotics as an outpatient.
Speech therapy evaluation prior to discharge
Assessment
-
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
setting without resolution and now admitted with CT evidence for multifocal pneumonia-pulmonary consulted for shortness of breath/cough/wheeze/pneumonia 03/03/2025.
Multifocal pneumonia in immunocompromised patient on Rituxan
Chronic cough
Postnasal drip/sinusitis
Suspected asthma with mild to moderate acute exacerbation-significant wheezing on exam
Mild normocytic anemia-hemoglobin 10.5
Acute sinusitis
Conditions present prior to admission:
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
Lung cancer status post lobectomy 2023-[facility].
Hypertension.
Hyperlipidemia.
Plan
Respiratory decompensation likely related to bronchitis/pneumonia-patient reports most recent cultures usual respiratory leida, however, sputum culture as an outpatient also revealed strep pneumonia/haemophilus influenza treated with extensive
Ceftin with initial improvement and then resurgence of symptoms
Extensive outpatient workup and previous treatments were reviewed
Supplemental oxygen as needed-95% on room air
Assess discharge supplemental oxygen needs
Aspiration precautions
Mucolytic's continue
Nebulizers continue-DuoNeb and budesonide
Saline nebulizers continues
No change in Brhw-Xdphgv-wvbqdbhviz changed to prednisone 40 mg with slow taper-recommend long slow taper-prednisone 40 mg daily for 4 days, then 30 mg daily for 4 days, then 20 mg daily for 4 days, then 10 mg daily for 4 days and then discontinue
Mucus clearing devices-Acapella.
Incentive spirometry
Vest therapy- continue for an additional 24 hours.
Patient complains of some mild aspiration-like symptoms-speech therapy evaluation and video swallow if needed
Sputum culture-including fungal and atypicals.
Sputum thus far unrevealing
Cultures reviewed
Sputum culture 03/03/25-usual respiratory leida-unrevealing.
Sputum culture 03/05/25-many WBCs, mixed bacteria
Urine Legionella and streptococcal antigens negative.
Influenza negative
Empiric antibiotics-cefepime and vancomycin initiated-now cefepime and doxycycline
Tailor antibiotics according to cultures-unrevealing
Infectious disease consultation- noted and correspondence reviewed
Saline nasal irrigations continue
CT sinuses 03/03/25-mild sinusitis, left frontal sinus, left anterior ethmoid air cells and right posterior ethmoid air cells which appears new from 2023
Consider ENT evaluation outpatient
DVT prophylaxis-on Lovenox
GI prophylaxis-on pantoprazole
Nutrition
Early mobilization..
Reviewed with primary team
Dr. Boland called skxb-Jzalmf-krlhioqxex and updated on current clinical progress 03/05/25 and again on 03/06/25
Outpatient pulmonary rxjyhv-th-ilrt saw Dr. Willingham 01/27/2025 and then Mariam Loco CNP 02/16/2025 and has appointment with Mariam on 04/20/25-patient would like to see Dr. Willingham next
Diagnostic data:
Chest x-ray 04/13/2023-NAD
Chest x-ray 10/22/2024-NAD
Chest x-ray 12/26/2024-NAD
Chest x-ray 01/28/2025-NAD
Chest x-ray 02/12/2025-NAD
CT chest 03/02/2025-no evidence for pulm embolism, mild bronchial wall thickening and bibasilar opacifications which likely represent multifocal pneumonia
CT sinus 10/31/23-severe right nasal septal deviation, mild mucosal thickening ethmoid sinuses
Stress echocardiogram 10/31/23-normal stress echocardiogram, EF 55-60% and postexercise 65-70%
Subjective Data
-
Date of Service:
Date of Service: March 06, 2025
Chief Complaint: Pulmonary Follow Up and Dyspnea Follow Up
Subjective:
Did not sleep well-he attributed to steroids, still with some wheezing, cough, no chest pain or abdominal pain, sputum . On occasion, mostly nonproductive
Review of Systems
General: Other (per HPI)
Objective Data
Data Reviewed
Vital Signs / I&O:
Vital Signs
Temp Pulse Resp BP Pulse Ox
97.6 F 74 16 154/86 94
03/06/25 07:00 03/06/25 08:19 03/06/25 07:50 03/06/25 08:19 03/06/25 07:50
Intake and Output
03/05/25 03/06/25 03/07/25
06:59 06:59 06:59
Intake Total 1660 / 1660 960 / 960
Balance 1660 / 1660 960 / 960
SaO2: 94
Physical Exam
General: Respiratory Distress (n) and Comfortable
HEENT: Normocephalic and Moist Mucous Membranes
Cardiovascular: Regular Rhythm
Respiratory: Wheeze ( few forced expiratory), Crackles (n), Rhonchi ( expiratory), Non-Labored Respirations, Accessory Resp Muscle Use (n) and Stridor
GI: Soft, Non Distended and Non Tender
Neurology: Awake, Alert and No Motor Deficits
Skin: Warm, Good Color, Cyanosis (n), Jaundice and Rash (n)
Labs/Micro/Reports
Lab Data
03/06/25 08:34
Microbiology
03/05/25 10:09 Sputum Respiratory Culture - Preliminary
Usual Respiratory Leida
03/05/25 10:09 Sputum Gram Stain - Preliminary
03/02/25 14:56 Blood/Venous Blood Culture - Preliminary
No Growth in 72 hours- Final report to follow
03/03/25 02:13 Sputum Respiratory Culture - Final
03/03/25 02:13 Sputum Gram Stain - Final
03/03/25 17:12 Sputum Respiratory Culture - Final
Usual Respiratory Leida
03/03/25 17:12 Sputum Gram Stain - Final
03/03/25 01:14 Nose MRSA Screen - Final
No Methicillin Resistant Staphylococcus aureus isolated.
03/03/25 15:25 Urine Legionella Urinary Antigen - Final
Negative for Legionella pneumophila Serogroup 1 antigen.
A negative result does not rule out the possiblity of
Legionella infection due to other serogroups or species of
Legionella. Clinical correlation is recommended.
03/03/25 15:25 Urine Streptococcus pneumoniae Antigen (M - Final
Negative for Streptococcus pneumoniae antigen.
A negative result does not exclude infection with
Streptococcus pneumoniae. Clinical correlation is
recommended.
03/03/25 14:46 Nasal Swab Influenza Types A & B (ALIA) - Final
Negative for Influenza A & B, NAAT
Negative results must be combined with clinical observations
and patient history.
Nucleic Acid Amplification test (NAAT)performed on the
[employer] platform.
[2025-03-06 11:46] LABS: Blood Urea Nitrogen 22 mg/dl (9-20); Calcium 10.3 mg/dl (8.4-10.2); Carbon Dioxide 25 mmol/L (22-30); Chloride 104 mmol/L (98-107); Estimated Creatinine Clearance 48 ml/min; Glucose 119 mg/dl (70-99); Magnesium 2.1 mg/dl (1.6-2.3); Potassium 4.3 mmol/L (3.5-5.1); Sodium 138 mmol/L (135-145); eGFR > 60.00
--- NOTE | 2025-03-06 12:23 | PTCARENOTE ---
patient pacing around the room c/o chest pain and throat pain. he says he is not sure if it is GERD but it is a different feeling. he also wants you to know that he thinks he might need a swallow study. MD Whitfield notified and assessing patient at
bedside. New orders placed. will continue to monitor.
[2025-03-06] MEDS: PEPCID 40 MG PO (12:31)
[2025-03-06] MEDS: OCEAN, SALINE MIST 50 SPRAYS NASAL ×2 (12:32→17:53)
--- NOTE | 2025-03-06 13:44 | W.PN.HOSP.TC ---
Today's Communication/Plan
-
await VSE
await ID re: [id number] at d/c
started mycelex lozenges
need long slow steroid taper--as per pulm note
hopeful d/c tomorrow?
Assessment / Plan
Assessment / Plan
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 He reports symptoms began last Sunday. Cough is productive of green sputum. Also
reported SOB and upper/lower chest pain. He report prior similar symptoms with courses of doxycycline and Keflex without improvement. Denies any other complaints
CT imaging in ER concerning for multifocal pneumonia - patient placed on IV antibiotics and admitted.
Multifocal pneumonia--Underlying hx of lung cancer s/p lobectomy 2023 ([facility]) with collapsed lung complication--has had Keflex and doxy courses--apprec pulm/ID--currently on cefepime and oral doxy--normal kori on sputum culture--pulmicort
added--wean solumedrol to oral prednisone with longer taper at d/c--need ID input re: ABX at d/c--IS/Acapella/Mucolytics, cont chest percussion
chest and throat pain--thrush as per ID--also pill esophagitis with doxycycline could be contributing--EKG WNL--added mycelex and explained taking doxy with full glass of water and sitting upright at least 20 minutes afterwards--pt asking about
swallowing study (concerned he is aspirating)--ordered VSE--STAT dose of pepcid given
Leukocytosis likely due to steroid effect
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
GERD - PPI
HLD - statin
Essential HTN--on Chlorthalidone/Losartan
DVT proph-- Lovenox
Full code status
spoke with pt and (via phone)
Anticipated Discharge: Within 24 hours
Subjective/Interval History
-
Date of Service: March 06, 2025
pt c/o about chest and throat pain
Objective Data
-
Labs:
Laboratory Results
03/06/25
08:34
WBC 13.5 H
Hgb 11.8 L
Hct 35.5 L
Plt Count 290
Sodium 138
Potassium 4.3
Chloride 104
Carbon Dioxide 25
BUN 22 H
Creatinine 1.1
Glucose 119 H
Calcium 10.3 H
Vital Signs:
max temp for 24 hours
03/05/25
18:30
Temp 98.3 F
Vital Signs
Temp Pulse Resp BP Pulse Ox
97.6 F 85 16 154/86 95
03/06/25 07:00 03/06/25 11:25 03/06/25 11:25 03/06/25 08:19 03/06/25 11:25
I&O
03/05/25 03/06/25 03/07/25
06:59 06:59 06:59
Intake Total 1660 / 1660 960 / 960
Balance 1660 / 1660 960 / 960
Review of Systems
-
All other systems: Reviewed and negative
Cardiac: Reports Chest Pain (throat pain)
Physical Exam
-
General: Well Developed, Well Nourished and Appears Chronically Ill
HEENT: Normocephalic and Atraumatic; Negative Oxygen
Respiratory: Rhonchi (all lung ruiz); Negative Wheezes
Cardiac: Regular Rhythm and S1/S2; Negative Murmur
GI: Soft, Nontender, Nondistended and Normal Bowel Sounds
Musculoskeletal: No Clubbing, No Cyanosis and No Edema
Neuro: Awake and Alert
[2025-03-06] MEDS: MYCELEX TROCHE 10 MG PO ×3 (14:05→21:04)
--- NOTE | 2025-03-06 14:10 | W.PN.ID1 ---
Date of Service
Date of Service: March 06, 2025
Today's Communication
discussed oral discharge antibiotic as well as Speech Language Pathology swallow evaluation for presence for silent aspiration in setting of cough/choking with swallow
Assessment / Plan
1. Multifocal pneumonia on CT chest with no PE, bibasilar opacities, bronchial thickening,sputum results available
2. Discontinue Cefepime by food service associate / discontinuation of Vancomycin in setting of negative MRSA screen, Doxycycline added for atypicals
3. Patient currently afebrile with decreased leukocytosis
4. Patient immune compromised in setting of MALT lymphoma and chronic low dose steroid
5. Patient with history of lung cancer with lobectomy left upper
6. Recent weight loss, chronic cough with thick sputum production somewhat decreased currently with adequate oxygenation, continue chest PT for secretions
Patient concern about aspiration and is requesting swallow evaluation by speech therapy swallow an issue and seems to crystal, cough with swallow
7. Consider treating mild oral thrush Mycelex wyatt or Nystatin swish swallow
Thank you for calling Infectious Disease Consultation
The ID team will continue to follow with you.
Please call with any concerns or questions
Chief Complaint
-: Pneumonia (bilateral with coontinued sputum production with cough somewhat diminished)
Subjective / Review of Systems
Review of Systems: No Fever, No Chills, No Headache, Pharyngitis, No Stiff Neck, No Swollen Lymph Nodes, Cough, Sputum Production, Chest Pain (occasionally with cough), No Palpitations, No Abdominal Pain, No Nausea, No Vomiting, No Diarrhea, No
Dysuria, No Joint Pain and No Skin Rash
Vital Signs / Physical Exam
Vital Signs
Vital Signs
Temp Pulse Resp BP Pulse Ox
97.6 F 85 16 154/86 95
03/06/25 07:00 03/06/25 11:25 03/06/25 11:25 03/06/25 08:19 03/06/25 11:25
Physical Exam
Constitutional: Well Developed, Chronically Ill, Non-toxic and Cachetic (concerned about swallow and aspiration with presence of cough after eating and occasional dysphagia)
Head: Normocephalic
Eyes: Pupils Equal, Pupils Round, No Conjunctival Hemorrhage and Sclera Anicteric
Oropharyngeal: Benign (prominent uvula)
Cardiovascular: Regular Rate
Pulmonary: Coarse (basilar rhonchi R with wheezes lower left) and Non Labored
Gastrointestinal: Soft, Non Tender, Non Distended and Decreased Bowel Sounds
Extremities: Other (good ROM no edema)
Skin: Warm and Dry
Wound: None
Neurological: Awake, Alert, Oriented, AO x 3 and No Motor Deficits
Psychological: Calm (anxious,appropriately anxios about respiratory status)
Objective Data
Lab Data
Lab Results
03/06/25 08:34
03/06/25 08:34
Estimated Creat Clear 48 ml/min 03/06/25 08:34
Lactic Acid 1.1 mmol/L (0.7-2.0) 03/02/25 20:16
Total Bilirubin 0.9 mg/dl (0.2-1.3) 03/02/25 14:56
AST 20 U/L (17-59) 03/02/25 14:56
ALT 17 U/L (0-50) 03/02/25 14:56
Alkaline Phosphatase 81 U/L (38-126) 03/02/25 14:56
Most recent labs reviewed.
Microbiology: Report Reviewed
Micro Results:
03/05/25 10:09 Respiratory Culture - Preliminary
Sputum Usual Respiratory Leida
Gram Stain - Preliminary
03/02/25 14:56 Blood Culture - Preliminary
Blood/Venous No Growth in 72 hours- Final report to follow
03/03/25 02:13 Respiratory Culture - Final
Sputum Gram Stain - Final
03/03/25 17:12 Respiratory Culture - Final
Sputum Usual Respiratory Leida
Gram Stain - Final
03/03/25 01:14 MRSA Screen - Final
Nose No Methicillin Resistant Staphylococcus aureus isolated.
03/03/25 15:25 Legionella Urinary Antigen - Final
Urine Negative for Legionella pneumophila Serogroup 1 antigen.
A negative result does not rule out the possiblity of
Legionella infection due to other serogroups or species of
Legionella. Clinical correlation is recommended.
Streptococcus pneumoniae Antigen (M - Final
Negative for Streptococcus pneumoniae antigen.
A negative result does not exclude infection with
Streptococcus pneumoniae. Clinical correlation is
recommended.
03/03/25 14:46 Influenza Types A & B (ALIA) - Final
Nasal Swab Negative for Influenza A & B, NAAT
Negative results must be combined with clinical observations
and patient history.
Nucleic Acid Amplification test (NAAT)performed on the
[employer] platform.
Chest X-Ray: Report Reviewed
CT Scan: Report Reviewed
Care Review
Plan reviewed with: Physician (discussed outpatient antibiotic// [employer] eval of swallow with thin/thick/liquids/solids/puree)
Total Time Spent with Patient (in minutes): 35
--- NOTE | 2025-03-06 14:21 | CM ---
Chart reviewed and plan is to home no needs when stable.
Plan; Home no needs.
[2025-03-06 15:00] VITALS: BP 137/86
--- NOTE | 2025-03-06 17:18 | PTOTSP ---
ST Acute Care Evaluation
Pt currently presents with clinical signs of suspected mild pharyngeal dysphagia characterized by seldom coughing s/p ingestion of both solids and liquids that is difficult to differentiate from baseline cough. Pt also exhibits suspected acute
esophageal dysfunction/spasm in the setting of possible recent pill esophagitis from abx in the setting of known GERD, Juarez's esophagus, hx of Angelica Payne tear, and gastric cancer of the stomach and duodenum. Lastly, pt is exhibiting a
moderately-severe dysphonia that is likely attributable to pt's persistent coughing and/or from previous GERD/LPR event(s).
Recommendations:
- Continue with regular solids, thin liquids, and meds as tolerated. Consider adding moisture to dry/crumbly solid foods (e.g. gravies, sauces, condiments, sips of liquids).
- Aspiration precautions: Do not eat if you are short of breath, sit fully upright when eating/drinking, take small bites/sips, eat/drink slowly, reduce distractions when eating/drinking.
- Reflux precautions: Stay upright for at least 60 minutes after eating/drinking, keep your head of bed up at least 30 degrees at night, reduce intake of reflux-triggering foods/drinks, take reflux medications as prescribed.
- Vocal hygiene - rest your voice and only speak when absolutely necessary for the next 1-2 weeks; stay hydrated; reduce caffeine intake.
- Consider ENT consult as an OP for laryngoscopy for further evaluation of vocal folds due to persistent dysphonia.
- Consider OP video fluoroscopic swallow study (VFSS) with FIREBRICK AND REFRACTORY TILE REPAIRER for more objective information regarding current swallowing function.
- FIREBRICK AND REFRACTORY TILE REPAIRER to f/u re: diet tolerance, use of compensatory strategies, and to re-iterate education listed above.
[2025-03-06] MEDS: LOVENOX 40 MG SC (17:52)
[2025-03-06] MEDS: LIPITOR 10 MG PO (17:52)
[2025-03-06] MEDS: FLOMAX 0.8 MG PO (21:04)
[2025-03-06] MEDS: OCEAN, SALINE MIST 2 SPRAYS NASAL (21:08)
[2025-03-06 23:07] VITALS: BP 117/82
[2025-03-07] MEDS: TESSALON PERLES 200 MG PO (01:53)
[2025-03-07] MEDS: TYLENOL 650 MG PO ×2 (01:53→06:30)
[2025-03-07] MEDS: STERILE WATER FOR INJECTION 10 ML IV (06:23)
[2025-03-07] MEDS: MAXIPIME 1000 MG IV (06:23)
[2025-03-07 07:00] VITALS: BP 143/92
[2025-03-07] MEDS: SODIUM CHLORIDE 3% FOR INHALATION 1 VIAL INH (07:36)
[2025-03-07] MEDS: DUONEB 3 ML INH ×2 (07:36→11:20)
[2025-03-07] MEDS: PULMICORT 0.5 MG INH (07:36)
[2025-03-07 08:24] LABS: Hematocrit 31.0 % (39.0-52.0); Hemoglobin 10.5 g/dL (13.0-18.0); Mean Corp Hgb Conc. 33.9 g/dL (33.0-37.0); Mean Corpuscular Volume 83.3 fL (80.0-94.0); Nucleated Red Blood Cells % 0 % (-); Platelet Count 263 10^3/uL (130-400); Red Cell Dist. Width 13.6 % (11.5-14.5)
[2025-03-07] MEDS: PROTONIX 40 MG PO (08:40)
[2025-03-07] MEDS: COLACE 100 MG PO (08:40)
[2025-03-07] MEDS: MUCINEX 1200 MG PO (08:41)
[2025-03-07] MEDS: COZAAR 50 MG PO (08:41)
[2025-03-07] MEDS: DELTASONE 40 MG PO (08:42)
[2025-03-07] MEDS: VIBRAMYCIN 100 MG PO (08:42)
[2025-03-07] MEDS: DESENEX/MITRAZOL/ZEASORB 1 APPLIC TOPICAL (08:43)
[2025-03-07] MEDS: MYCELEX TROCHE 10 MG PO ×2 (08:43→11:16)
[2025-03-07] MEDS: NON-FORMULARY ITEM OPHTH (08:44)
[2025-03-07] MEDS: OCEAN, SALINE MIST 50 SPRAYS NASAL (08:44)
[2025-03-07 08:54] LABS: Blood Urea Nitrogen 25 mg/dl (9-20); Calcium 9.4 mg/dl (8.4-10.2); Carbon Dioxide 27 mmol/L (22-30); Chloride 101 mmol/L (98-107); Estimated Creatinine Clearance 48 ml/min; Glucose 86 mg/dl (70-99); Magnesium 2.0 mg/dl (1.6-2.3); Potassium 3.7 mmol/L (3.5-5.1); Sodium 135 mmol/L (135-145); eGFR > 60.00
--- NOTE | 2025-03-07 12:26 | W.PN.HOSP.TC ---
Today's Communication/Plan
-
Discharge today
Assessment / Plan
Assessment / Plan
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 He reports symptoms began last Sunday. Cough is productive of green sputum. Also reported
SOB and upper/lower chest pain. He report prior similar symptoms with courses of doxycycline and Keflex without improvement. Denies any other complaints. CT imaging in ER concerning for multifocal pneumonia - patient placed on IV antibiotics and
admitted.
1. Multifocal pneumonia--Underlying hx of lung cancer s/p lobectomy 2023 ([facility]) with collapsed lung complication
has had Keflex and doxy courses
apprec pulm/ID--Has had cefepime and oral doxy--
normal kori on sputum culture
--pulmicort added
--wean solumedrol to oral prednisone with longer taper at d/c
Plan Per ID:
1. Multifocal pneumonia on CT chest with no PE, bibasilar opacities, bronchial thickening,sputum results available
2. Discontinue Cefepime by quality control manager / discontinuation of Vancomycin in setting of negative MRSA screen, Doxycycline added for atypicals
3. Patient currently afebrile with decreased leukocytosis
4. Patient immune compromised in setting of MALT lymphoma and chronic low dose steroid
5. Patient with history of lung cancer with lobectomy left upper
6. Recent weight loss, chronic cough with thick sputum production somewhat decreased currently with adequate oxygenation,
continue chest PT for secretions Patient concern about aspiration and is requesting swallow evaluation by speech therapy swallow an issue and seems to crystal, cough with swallow
7. Consider treating mild oral thrush Mycelex wyatt or Nystatin swish swallow
Plan Per pulmonary:
1. No change in Icud-Ifpjwn-uysswpizqy changed to prednisone 40 mg with slow taper
-recommend long slow taper-prednisone 40 mg daily for 4 days, then 30 mg daily for 4 days,
then 20 mg daily for 4 days, then 10 mg daily for 4 days and then discontinue
2. Mucus clearing devices-Acapella.
3. Incentive spirometry
4. Outpatient pulmonary vttlfz-dh-jxiu saw Dr. Willingham 01/27/2025 and then Mariam Loco CNP 02/16/2025
has appointment with Mariam on 04/20/25
patient would like to see Dr. Willingham next
Patient states he feels better and would like to go home. He will follow up first with pulmonary.
2. chest and throat pain
thrush as per ID
also pill esophagitis with doxycycline could be contributin
--EKG WNL
--added mycelex and explained taking doxy with full glass of water and sitting upright at least 20 minutes afterwards
3. Leukocytosis likely due to steroid effect
4. 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
5. GERD - PPI
6. HLD - statin
7. Essential HTN--on Chlorthalidone/Losartan
DVT proph-- Lovenox
Full code status
Anticipated Discharge: Today
Subjective/Interval History
-
Date of Service: March 07, 2025
Feels better. Wants to go home.
Objective Data
-
Labs:
Laboratory Results
03/07/25
07:29
WBC 11.7 H
Hgb 10.5 L
Hct 31.0 L
Plt Count 263
Sodium 135
Potassium 3.7
Chloride 101
Carbon Dioxide 27
BUN 25 H
Creatinine 1.1
Glucose 86
Calcium 9.4
Vital Signs:
Vital Signs
Temp Pulse Resp BP Pulse Ox
97.7 F 72 16 143/92 95
03/07/25 07:00 03/07/25 11:22 03/07/25 11:22 03/07/25 07:00 03/07/25 11:22
I&O
03/06/25 03/07/25 03/08/25
06:59 06:59 06:59
Intake Total 960 / 960 1560 / 1560
Balance 960 / 960 1560 / 1560
Review of Systems
-
History Source: Patient
All other systems: Reviewed and negative
Respiratory: Reports Cough and Wheezing
Physical Exam
-
General: Well Developed, Well Nourished, No Apparent Distress, Comfortable and Conversant
HEENT: Normocephalic, Nose Appears Normal and Ears Appear Normal
Respiratory: Wheezes and Rhonchi
Cardiac: Regular Rhythm and S1/S2
GI: Soft, Nontender and Nondistended
Musculoskeletal: No Clubbing, No Cyanosis and No Edema
Skin: Warm and Dry
Neuro: Awake, Alert and Oriented
Psych: Calm
Data Reviewed
-
Labs: Labs Reviewed by me
--- NOTE | 2025-03-07 12:35 | W.DCSUMMARY ---
Discharge Summary
Discharge Data
Date of Admission: 03/02/25
Date of Discharge: 03/07/25
-
Pending Results: No
Hospital Course
Diagnosis at admit:
Multifocal pneumonia
Complicated by Underlying hx of lung cancer s/p lobectomy 2023 ([facility]) with collapsed lung complication
Pre-admit diagnosis:
GERD,
Essential HTN,
Hypercholesterolemia
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
hx of lung cancer s/p lobectomy 2023 ([facility]))
Hospital presentation and hospital progress by problem:
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 He reports symptoms began last Sunday. Cough is productive of green sputum.
Also reported SOB and upper/lower chest pain. He report prior similar symptoms with courses of doxycycline and Keflex without improvement. He Denies any other complaints. CT imaging in ER concerning for multifocal pneumonia - so the patient was
placed on IV antibiotics and admitted.
1. Multifocal pneumonia--Underlying hx of lung cancer s/p lobectomy 2023 ([facility]) with collapsed lung complication
had had Keflex and doxy courses
apprec pulm/ID--Has had cefepime and oral doxy while here
normal kori reported on sputum culture
--pulmicort added
--advice to wean solumedrol to oral prednisone with longer taper at d/c
Plan Per ID:
1. Multifocal pneumonia on CT chest with no PE, bibasilar opacities, bronchial thickening,sputum results available
2. Discontinue Cefepime by medical office assistant / discontinuation of Vancomycin in setting of negative MRSA screen, Doxycycline added for atypicals
3. Patient currently afebrile with decreased leukocytosis
4. Patient immune compromised in setting of MALT lymphoma and chronic low dose steroid
5. Patient with history of lung cancer with lobectomy left upper
6. Recent weight loss, chronic cough with thick sputum production somewhat decreased currently with adequate oxygenation,
continue chest PT for secretions Patient concern about aspiration and is requesting swallow evaluation by speech therapy swallow an issue and seems to crystal, cough with swallow
7. Consider treating mild oral thrush Mycelex wyatt or Nystatin swish swallow
Plan Per pulmonary:
1. No change in Qnyq-Lwofsc-wcvcenbyej changed to prednisone 40 mg with slow taper
-recommend long slow taper-prednisone 40 mg daily for 4 days, then 30 mg daily for 4 days,
then 20 mg daily for 4 days, then 10 mg daily for 4 days and then discontinue
2. Mucus clearing devices-Acapella.
3. Incentive spirometry
4. Outpatient pulmonary hwosrx-qx-uebc saw Dr. Willingham 01/27/2025 and then Mariam Loco CNP 02/16/2025
has appointment with Mariam on 04/20/25
patient would like to see Dr. Willingham next
At day of discharge, patient stated he felt better and would like to go home. He will follow up first with pulmonary.
2. chest and throat pain
thrush diagnosed per ID
also pill esophagitis with doxycycline could be contributin
--EKG WNL
--added mycelex and discussed taking doxy with full glass of water and sitting upright at least 20 minutes afterwards
3. Leukocytosis likely due to steroid effect
4. 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
5. GERD - PPI
6. HLD - statin
7. Essential HTN--on Chlorthalidone/Losartan
DVT proph during hospitalization -- Lovenox
Full code status durign hospitalization
Discharge Plan
-
Referrals:
Ifeanyi Jiménez MD [Active, Pulmonary Medicine] - in one to two weeks
UNKNOWN - PT DOES,NOT KNOW [Family Provider]
Prescriptions:
No Action
valacyclovir 500 MG tablet
500 mg PO DAILY
tamsulosin [Flomax] 0.4 mg Capsule
0.8 mg PO HS
Xiidra 5 % Dropperette
1 drp OPHTHALMIC (EYE) BID
losartan 50 mg Tablet
50 mg PO DAILY
atorvastatin 40 mg Tablet
40 mg PO HS
amlodipine 2.5 mg Tablet
2.5 mg PO DAILY
montelukast 10 mg Tablet
10 mg PO DAILY
aspirin 81 mg Tablet
81 mg PO DAILY
loratadine 10 mg Tablet
10 mg PO DAILY
cholecalciferol (vitamin D3) [Vitamin D3] 25 mcg (1,000 unit) Tablet
25 mcg PO DAILY
pantoprazole 40 MG tablet,delayed release (DR/EC)
40 mg PO 1XD
Xiidra 5 % Dropperette
1 drp OPHTHALMIC (EYE) BID
Discharge Date and Time
Print Language: CITIZEN [place]
--- NOTE | 2025-03-07 12:43 | W.DCSUMMARY ---
Discharge Summary
Discharge Data
Date of Admission: 03/02/25
Date of Discharge: 03/07/25
-
Pending Results: No
Hospital Course
Diagnosis at admit:
Multifocal pneumonia complicated by Underlying hx of lung cancer s/p lobectomy 2023 ([facility]) with collapsed lung complication
Pre-admit diagnosis
GERD,
essential HTN,
Hypercholesterolemia
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
hx of lung cancer s/p lobectomy 2023 ([facility])
initial presentation and hospital course by problem:
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 He reports symptoms began last Sunday. Cough is productive of green sputum. Also reported
SOB and upper/lower chest pain. He report prior similar symptoms with courses of doxycycline and Keflex without improvement. Denies any other complaints. CT imaging in ER concerning for multifocal pneumonia - patient placed on IV antibiotics and
admitted.
1. Multifocal pneumonia--Underlying hx of lung cancer s/p lobectomy 2023 ([facility]) with collapsed lung complication
had had Keflex and doxy courses
appreciated pulm/ID consults--Has had cefepime and oral doxy--
normal kori on sputum culture
--pulmicort added
Plan Per ID:
1. Multifocal pneumonia on CT chest with no PE, bibasilar opacities, bronchial thickening,sputum results available
2. Discontinue Cefepime by superintendent meter tests / discontinuation of Vancomycin in setting of negative MRSA screen, Doxycycline added for atypicals
3. Patient currently afebrile with decreased leukocytosis
4. Patient immune compromised in setting of MALT lymphoma and chronic low dose steroid
5. Patient with history of lung cancer with lobectomy left upper
6. Recent weight loss, chronic cough with thick sputum production somewhat decreased currently with adequate oxygenation,
continue chest PT for secretions Patient concern about aspiration and is requesting swallow evaluation by speech therapy swallow an issue and seems to crystal, cough with swallow
7. Consider treating mild oral thrush Mycelex wyatt or Nystatin swish swallow
Plan Per pulmonary:
1. No change in Bomz-Aysyqs-qcgpwgoghw changed to prednisone 40 mg with slow taper
-recommend long slow taper-prednisone 40 mg daily for 4 days, then 30 mg daily for 4 days,
then 20 mg daily for 4 days, then 10 mg daily for 4 days and then discontinue
2. Mucus clearing devices-Acapella.
3. Incentive spirometry
4. Outpatient pulmonary fdbwoi-vw-ifea saw Dr. Willingham 01/27/2025 and then Mariam Loco CNP 02/16/2025
has appointment with Mariam on 04/20/25
patient would like to see Dr. Willingham next
Patient stated he feels better and would like to go home. He will follow up first with pulmonary.
Other issues to note during admit:
2. chest and throat pain
thrush as per ID
also pill esophagitis with doxycycline could be contributin
--EKG WNL
--added mycelex and explained taking doxy with full glass of water and sitting upright at least 20 minutes afterwards
3. Leukocytosis likely due to steroid effect
4. 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
5. GERD - PPI
6. HLD - statin
7. Essential HTN--on Chlorthalidone/Losartan
DVT proph-- Lovenox
Full code status
Discharge Plan
-
Patient Disposition: Home (Routine Discharge)
Discharge Diagnosis/Procedures: Multifocal pneumonia
Diet: As tolerated
Activity: As tolerated
Driving Restrictions: As prior to admission
Bathing Restrictions: None
Referrals:
Ifeanyi Jiménez MD [Active, Pulmonary Medicine] - in one to two weeks
UNKNOWN - PT DOES,NOT KNOW [Family Provider]
Prescriptions:
New
chlorthalidone 25 mg Tablet
12.5 mg PO DAILY Qty: 30 0RF
prednisone 20 mg Tablet
40 mg PO DAILY Qty: 30 0RF
Rx Instructions:
Take 40 mg/day for 4 days; then 30 mg/day for 4 days; then 20 mg/day for 4 days; then 10 mg/day for 4 days
clotrimazole 10 mg Wyatt
10 mg PO 5/D Qty: 20 0RF
budesonide 0.5 mg/2 mL Suspension For Nebulization
0.5 mg inhalation R BID Qty: 60 0RF
doxycycline hyclate 100 mg Capsule
100 mg PO Q12 Qty: 20 0RF
Continued
valacyclovir 500 MG tablet
500 mg PO DAILY
tamsulosin [Flomax] 0.4 mg Capsule
0.8 mg PO HS
Xiidra 5 % Dropperette
1 drp OPHTHALMIC (EYE) BID
losartan 50 mg Tablet
50 mg PO DAILY
atorvastatin 40 mg Tablet
40 mg PO HS
amlodipine 2.5 mg Tablet
2.5 mg PO DAILY
montelukast 10 mg Tablet
10 mg PO DAILY
aspirin 81 mg Tablet
81 mg PO DAILY
loratadine 10 mg Tablet
10 mg PO DAILY
cholecalciferol (vitamin D3) [Vitamin D3] 25 mcg (1,000 unit) Tablet
25 mcg PO DAILY
pantoprazole 40 MG tablet,delayed release (DR/EC)
40 mg PO 1XD
Xiidra 5 % Dropperette
1 drp OPHTHALMIC (EYE) BID
Discharge Orders:
Discharge Patient (As Directed); Ordered 03/07/25
Ordered By: Jorge Farooq
Discharge Date and Time
Print Language: SYRIAC
--- NOTE | 2025-03-07 13:03 | CM ---
Met with patient to do IMM. He asked for help to get voucher or some way not to pay for garage fee. He came to garage to go to GI appointment and ended up being sent from GI to ER then admitted.
CM called [phone] to inquire. PLan for transport to take to security office and he can walk to car with security to open gate .
RN and patient care process manager on floor aware of plan. CM updated patient on plan.
[2025-03-07 13:48] VITALS: BP 128/85
== END 2025-03-07 14:48 | disposition home or self-care (01) | DRG 194 ==
LOC: 4 WEST ACU 23:26
PROVIDERS: Internal Medicine; Nurse Practitioner; Student in an Organized Health Care Education/Training Program; ADMITTING PHYSICIAN Internal Medicine; ATTENDING PHYSICIAN Internal Medicine; EMERGENCY PHYSICIAN Student in an Organized Health Care Education/Training Program; OTHER PHYSICIAN Hospitalist; OTHER PHYSICIAN Internal Medicine Critical Care Medicine
DX: J18.9 Pneumonia, unspecified organism (principal); C88.40 Extranodal marginal zone B-cell lymphoma of mucosa-associated lymphoid tissue [MALT-lymphoma] not having achieved remission; D84.9 Immunodeficiency, unspecified; Z85.118 Personal history of other malignant neoplasm of bronchus and lung; Z90.2 Acquired absence of lung [part of]; K21.9 Gastro-esophageal reflux disease without esophagitis; E78.00 Pure hypercholesterolemia, unspecified; I10 Essential (primary) hypertension; B37.9 Candidiasis, unspecified; K20.80 Other esophagitis without bleeding; T38.0X5A Adverse effect of glucocorticoids and synthetic analogues, initial encounter; Z79.52 Long term (current) use of systemic steroids; J40 Bronchitis, not specified as acute or chronic; J45.909 Unspecified asthma, uncomplicated; K22.70 Barrett's esophagus without dysplasia; Z87.891 Personal history of nicotine dependence; Z11.52 Encounter for screening for COVID-19
CPT/HCPCS: 70486; 71275; 80048; 80053; 83605; 83735; 85025; 85027; 86803; 87040; 87070; 87205; 87449; 87502; 87811; 87899; 92610; 93005; 94640; 94669; 96374; 96375; 97161; 97166; 99285; Q9967

== ENCOUNTER → 2025-03-27 14:10 | Outpatient (REF) | payer MEDICARE, BC, SELFPAY | LOC: RAD 14:10 | PROVIDERS: ATTENDING PHYSICIAN Internal Medicine Critical Care Medicine | DX: J18.9 Pneumonia, unspecified organism (principal); R50.9 Fever, unspecified | CPT/HCPCS: 71250 ==

== ENCOUNTER 2025-03-29 00:37 | Inpatient (IN) | payer MEDICARE, BC, OTHER, SELFPAY ==
[2025-03-28 19:32] VITALS: BP 113/81
[2025-03-28 20:01] LABS: Hematocrit 30.9 % (39.0-52.0); Hemoglobin 10.4 g/dL (13.0-18.0); Mean Corp Hgb Conc. 33.7 g/dL (33.0-37.0); Mean Corpuscular Volume 85.1 fL (80.0-94.0); Nucleated Red Blood Cells % 0 % (-); Platelet Count 170 10^3/uL (130-400); Red Cell Dist. Width 15.2 % (11.5-14.5)
[2025-03-28 20:20] LABS: ALT (SGPT) 22 U/L (0-50); AST (SGOT) 19 U/L (17-59); Albumin 3.6 g/dl (3.5-5.0); Alkaline Phosphatase 70 U/L (38-126); Blood Urea Nitrogen 19 mg/dl (9-20); Calcium 8.7 mg/dl (8.4-10.2); Carbon Dioxide 28 mmol/L (22-30); Chloride 100 mmol/L (98-107); Glucose 95 mg/dl (70-99); Potassium 4.0 mmol/L (3.5-5.1); Sodium 132 mmol/L (135-145); Total Protein 5.8 g/dl (6.3-8.2); eGFR > 60.00
--- NOTE | 2025-03-28 22:15 | ED.GENMED ---
History of Present Illness
General
Chief Complaint: Cough
Time Seen by Provider: 03/28/25 21:56
History of Present Illness
History of Present Illness:
74-year-old male presents to the emergency department for evaluation of continued coughing and wheezing as well as an abnormal outpatient CT scan. The patient was admitted to this hospital earlier in the month due to multifocal pneumonia and was
treated with cephalexin and doxycycline. His case is complicated by MALT lymphoma currently on Rituxan and chronic low-dose steroids. He has continued to cough and wheeze since hospital discharge, states he did not feel overly improved at any
point in time. He followed up with his tour counselor as an outpatient and was sent for an outpatient CT scan that he obtained yesterday, the scan shows worsening of his multifocal disease. He was told by his tour counselor he would need a
bronchoscopy but this is not yet scheduled. Due to new development of fever the patient was encouraged to come to the emergency department for further evaluation. He denies any change in symptoms just persistent worsening in new fever today of
greater than 101 Fahrenheit. He denies chest pain. He does have chronic dyspnea that is also unchanged
Past History
Past History
ED Past Medical History: Cancer (MALT lymphoma, lung), HTN, Hypercholesterolemia and Other (Juarez's, lymphoma,)
ED Past Surgical History: Tonsilectomy and Other (Right upper lobectomy)
Social History
Tobacco: Non-smoker
Alcohol: Occasional
Drug: None
Personal:
Living: with family
Employment: Employed
Review of Systems
Review of Systems
Allergies reviewed?: Yes
All Other Systems: ROS reviewed and negative except as documented in HPI and ROS
Phy Exam
Physical Exam
Physical Exam:
GEN: Well appearing, NAD, WDWN
HEENT: Oral mucosa moist, no scleral icterus
Cardiac: Regular rate and rhythm
Lung: Mildly tachypneic with minimal conversational dyspnea, severe expiratory wheezes heard throughout all lung ruiz
MSK: No gross deformity or injuries
Skin: Good color, no pallor or jaundice, no rashes
Neuro: AO x3, moves all extremities freely
Psych: Calm, cooperative
Course
Orders/Labs/Results
Orders:
Orders
03/28/25 19:35
Electrocardiogram (*1) Urgent
Reason for Study: Other
Other Reason for Exam: Possible Sepsis
EKG- Treatment ONCE
03/28/25 19:45
Blood Culture Q20M
AYANA Source: Blood/Venous
Specimen Description:
Comment: Urgent from separate sites. If patient screens positive for possible sepsis
03/28/25 19:48
Complete Blood Count/With Diff Urgent
Comprehensive Metabolic Panel Urgent
Lactic Acid Q4H
Comment: ON ICE, CANCEL 2ND ORDER IF FIRST LACTIC ACID LEVEL <2
Blood Culture Q20M
AYANA Source: Blood/Venous
Specimen Description:
Comment: Urgent from separate sites. If patient screens positive for possible sepsis
03/28/25 22:14
Ipratropium/Albuterol Sulfate [Duoneb] 3 ml INH R NOW STA
MethylPREDNISolone PF [Solu-Medrol Pf] 60 mg IV NOW STA
03/28/25 22:29
COVID-19 Antigen Urgent
Source: Nasal Swab
Influenza A+B Rapid Molecular Urgent
AYANA Source: Nasal Swab
Specimen Description:
03/28/25 23:01
Cefepime HCl [Maxipime] 2,000 mg IV NOW STA
03/28/25 23:08
NSS 1000mL Bolus WIDE OPEN 0.9% Sodium Chloride 1000 ml [Nss] 1,000 ml IV BOLUS
Abnormal Lab Results
03/28/25
19:48
RBC 3.63 L 10^6/uL
(4.70-6.10)
Hgb 10.4 L g/dL
(13.0-18.0)
Hct 30.9 L %
(39.0-52.0)
RDW 15.2 H %
(11.5-14.5)
Absolute Neuts (auto) 7.9 H 10^3/uL
(1.4-6.5)
Absolute Monos (auto) 0.8 H 10^3/uL
(0.1-0.6)
Lymphocytes % 16.0 L %
(20.5-51.1)
Sodium 132 L mmol/L
(135-145)
Lactic Acid 0.6 L mmol/L
(0.7-2.0)
Total Protein 5.8 L g/dl
(6.3-8.2)
03/28/25 19:48
03/28/25 19:48
Vital Signs
Initial and Last Documented VS:
Initial Vital Signs
Temp Pulse Resp BP Pulse Ox
98.5 F 88 20 113/81 96
03/28/25 19:32 03/28/25 19:32 03/28/25 19:32 03/28/25 19:32 03/28/25 19:32
Last Documented Vital Signs
Temp Pulse Resp BP Pulse Ox
98.5 F 88 20 113/81 96
03/28/25 19:32 03/28/25 19:32 03/28/25 19:32 03/28/25 19:32 03/28/25 22:15
MDM/Problems Addressed
MDM/Problems Addressed:
Patient's imaging from outpatient study yesterday suggest worsening multifocal disease, he does not have any leukocytosis but this may be on the basis of his immunocompromise. He remains dyspneic although saturations are adequate. Will likely need
bronchoscopy although this may not being necessary inpatient study. Will admit on IV broad-spectrum antibiotics and IV steroids
Comment
Comment:
EKG independently interpreted by me shows normal sinus rhythm at a rate of [address] changes concerning for ischemia
*Pulse Oximetry
SaO2: 96
Oxygen Mode of Delivery: Room air
Patient hypoxic: no
*Critical Care Note
Total Time (30-74mins, 75-104mins- exclusive of procedures): Not Applicable
ED Attending Note
-
Portions of this chart may have been created with voice recognition software.� Occasional wrong word or��sound alike� substitutions may have occurred due to the inherent limitations of voice recognition software.
Discharge Plan
Departure
Patient Disposition: Admit
Date of Disposition: 03/28/25
Time of Disposition: 23:09
Admit to: Med/Surg
Presentation/result/management discussed w/ accepting MD/DO: Hospitalist
Discharge Problem:
Multifocal pneumonia
Prescriptions:
No Action
valacyclovir 500 MG tablet
500 mg PO DAILY
tamsulosin [Flomax] 0.4 mg Capsule
0.8 mg PO HS
Xiidra 5 % Dropperette
1 drp OPHTHALMIC (EYE) BID
losartan 50 mg Tablet
50 mg PO DAILY
atorvastatin 40 mg Tablet
40 mg PO HS
amlodipine 2.5 mg Tablet
2.5 mg PO DAILY
montelukast 10 mg Tablet
10 mg PO DAILY
aspirin 81 mg Tablet
81 mg PO DAILY
loratadine 10 mg Tablet
10 mg PO DAILY
cholecalciferol (vitamin D3) [Vitamin D3] 25 mcg (1,000 unit) Tablet
25 mcg PO DAILY
pantoprazole 40 MG tablet,delayed release (DR/EC)
40 mg PO 1XD
Xiidra 5 % Dropperette
1 drp OPHTHALMIC (EYE) BID
chlorthalidone 25 mg Tablet
12.5 mg PO DAILY Qty: 30 0RF
prednisone 20 mg Tablet
40 mg PO DAILY Qty: 30 0RF
Rx Instructions:
Take 40 mg/day for 4 days; then 30 mg/day for 4 days; then 20 mg/day for 4 days; then 10 mg/day for 4 days
clotrimazole 10 mg Dolores
10 mg PO 5/D Qty: 20 0RF
budesonide 0.5 mg/2 mL Suspension For Nebulization
0.5 mg inhalation R BID Qty: 60 0RF
doxycycline hyclate 100 mg Capsule
100 mg PO Q12 Qty: 20 0RF
Referrals:
Barry Pace DO [Family Provider, Internal Medicine]
Interventions
Interventions:
*Risk Screen - Suicide Last Done: 03/28/25 19:32
*General Assessment Last Done: 03/28/25 19:32
*Neglect/Abuse Screening Last Done: 03/28/25 19:32
*ED- Fall Risk Assessment Last Done: 03/28/25 22:07
*ED COVID-19 Vaccine History Last Done: 03/28/25 22:14
ED- Pulmonary Assessment Last Done: 03/28/25 22:07
Discharge Date and Time
Print Language: GHANA[place]
[2025-03-28] MEDS: SOLU-MEDROL PF 60 MG IV (22:29)
[2025-03-28] MEDS: DUONEB 3 ML INH (22:30)
[2025-03-28 22:58] LABS: COVID-19 Antigen Negative (Negative)
[2025-03-28 23:00] VITALS: BP 92/53
[2025-03-28] MEDS: NSS 1000 IV (23:11)
[2025-03-28] MEDS: MAXIPIME 2000 MG IV (23:12)
--- NOTE | 2025-03-28 23:33 | HPS.HSE ---
Family Physician
-
Family Physician: Barry Pace
Chief Complaint
-
Fever
History of Present Illness
This is a 74-year-old male with past medical history significant for mild lymphoma on Rituxan, history of lung cancer status post lobectomy 2023, hypertension, hyperlipidemia, recent admission for atypical pneumonia status post antibiotics and
discharged in early February who presents to the emergency department for ongoing respiratory symptoms and a fever to 101.4 at home today.
Patient was admitted to the hospital in February with cough and some shortness of breath and fevers. CT scan shows multifocal infiltrates consistent with multifocal pneumonia. He was initially started on broad-spectrum antibiotics including
vancomycin and cefepime. The antibiotics were ultimately tapered to doxycycline and patient was discharged on a long course of doxycycline and supportive respiratory measures. He was to follow-up with outpatient pulmonary.
Patient reports that his symptoms has essentially persisted since. He reports cough to the intermittently productive and ongoing dyspnea on exertion. He reports intermittent wheezing. He did complete his course of doxycycline and was started on
suppressive azithromycin by pulmonary. He had a follow-up outpatient CT scan that was done yesterday which shows worsening of his multifocal infiltrates. Bronchoscopy was recommended but has not been scheduled yet. Patient reported that his
symptoms are essentially unchanged but he had a new fever to 101. He feels some worsening congestion in the right upper chest.
He reported that she has not had any diarrhea or loose stool. Did not complete his prednisone taper and as the tapering was complete and the patient reported that symptoms was getting worse.
In ED he was afebrile 98.1, BP 113/81, p88, RR 20. ECG NSR at 81. WBC 10.8, CBC otherwise unremarkable. Electrolytes, BUN and creatinine unchanged.
CT CHest: Progressive pulmonary parenchymal disease process throughout the right lower lobe, despite interval improvement in previously noted parenchymal disease in the anterior right lower lobe. Faint areas of minor involvement are also suggested
in the posterior segment of the left upper lobe.
Possible considerations include aspiration, infection (airway spread of tuberculosis or nontuberculous mycobacterial infection, fungus), obliterative bronchiolitis.
If the patient has emphysema, patient should be assessed for an annual low dose lung cancer CT program, as pulmonary emphysema is an independent risk factor for lung cancer.
An urgent reading was requested for this examination; a preliminary report was provided and documented according to standard departmental procedure.
Medical History
Past Medical History
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
Past Surgical History: Reports Other (lung lobectomy)
Social History
Tobacco: Non-smoker
Alcohol: Occasional
Drug: None
Personal:
Living: With Family
Employment: Employed
Family History
Family History: Not pertinent
Allergies / Home Medications
Allergies reflects when Allergies were last updated in [facility].
Home Medications with original date entered in [facility]
Allergy/Medication List:
Allergies
Allergy/AdvReac Type Severity Reaction Status Date / Time
No Known Allergies Allergy Unverified 06/21/22 12:50
Home Medications
chlorthalidone 25 mg tablet 12.5 mg PO DAILY 07/25/17
lorazepam 1 mg tablet 1 mg PO HS 07/25/17
losartan 50 mg tablet 50 mg PO DAILY 07/25/17
simvastatin 20 mg tablet 20 mg PO QPM 07/25/17
valacyclovir 500 mg tablet 500 mg PO DAILY 07/25/17
pantoprazole 40 mg tablet,delayed release 40 mg PO BID #60 tabs 07/26/17
nirmatrelvir 300 mg (150 mg x2)-ritonavir 100 mg tablet,dose pack (Paxlovid) See Rx Instructions PO .COMPLEX #30 ea 06/21/22
Review of Systems
-
A 12 point ROS was completed and negative except as noted: Yes
Constitutional: Reports Fever
EENT: Reports No Symptoms
Respiratory: Reports Cough and Trouble Breathing
Cardiac: Reports No Symptoms
Abdomen/GI: Reports No Symptoms
: Reports No Symptoms
Musculoskeletal: Reports No Symptoms
Skin: Reports No Symptoms
Neurological: Reports No Symptoms
Endocrine: Reports No Symptoms
Hematologic/Lymphatic: Reports No Symptoms
Psych: Reports No Symptoms
Physical Exam
Vital Signs
Vital Signs
Temp Pulse Resp BP Pulse Ox
98.1 F 88 20 113/81 96
03/28/25 23:19 03/28/25 19:32 03/28/25 19:32 03/28/25 19:32 03/28/25 22:15
Physical Exam
General: No Apparent Distress
HEENT: NormoCephalic and Anicteric; No Oxygen
Respiratory: Wheezes, Rhonchi and Decreased Breath Sounds
Cardiac: S1/S2 and Regular Rhythm
Breast: Deferred by me
GI: Soft, Non Tender, Non Distended and Normal Bowel Sounds
Rectal: Deferred by Provider
Genito-urinary: Deferred by me
Musculoskeletal: No Clubbing, No Cyanosis and No Edema
Skin: Warm and Dry; No Rash or Jaundice
Neuro: AO x 3 and Nonfocal/grossly intact
Hematologic/Lymphatic: No Lymphadenopathy
Psych: Calm
Laboratory Results
-
03/28/25 19:48
03/28/25 19:48
Laboratory Results
Lactic Acid Cancelled 03/28/25 23:45
Total Bilirubin 0.8 mg/dl (0.2-1.3) 03/28/25 19:48
AST 19 U/L (17-59) 03/28/25 19:48
ALT 22 U/L (0-50) 03/28/25 19:48
Alkaline Phosphatase 70 U/L (38-126) 03/28/25 19:48
Data Reviewed
-
CT Scan: Report Reviewed by me
Medical Tests (Nuc Med, Echo, EKG etc): Image Personally Visualized and interpreted
Lab Data: Labs Reviewed by me
Old Records: Reviewed
Impression/Plan
-
IMPRESSION:
74-year-old with history of multiple lymphoma status post completion of Rituxan in August, history of lung cancer status post lobectomy, hypertension, hyperlipidemia was recently admitted for multifocal pneumonia status post broad-spectrum
antibiotic but ultimately discharged on doxycycline and now on suppressive azithromycin every other day and status post prednisone taper now presenting to the emergency department with persistence of his respiratory symptoms including productive
cough and shortness of breath and a fever to 101.7 at home today with associated chills. No other focal source of infection in terms of urine GI or skin. He did have a CT scan that shows persistent disease with progressive pulmonary parenchymal
disease process throughout the right lower lobe, despite interval improvement in previously noted parenchymal disease in the anterior right lower lobe. Cannot rule out an acute on chronic process. Exam reveals significant bilateral wheezes/squeaks
and some rhonchi. Coarse wheezes also noted.
PLAN:
Multifocal pneumonia -persistent multifocal pneumonia with possible acute on chronic disease. Possible COPD exacerbation given history of smoking. Fever to 101.7 at home, afebrile here. This is soon after completing his prednisone taper. BP is
soft at 90s systolic with a MAP of 65.
- Admit to telemetry for now
- Blood cultures
- He had extensive sputum sampling the last time which was negative, still will obtain sputum culture and urinary antigens
- Broaden antibiotics with cefepime and azithromycin for now
- Solu-Medrol 40 IV twice daily
- procal in am
- He is not hypoxic,
- Pulmonary consultation for possible bronc, there is been some suggestion of reflux/aspiration given history of mild with Juarez's.
Hypertension
- Holding chlorthalidone amlodipine and losartan for now pending as BP greater than 100
GI
- Continue pantoprazole
DVT prophylaxis�Lovenox subcu
CODE STATUS�full code
--- NOTE | 2025-03-28 23:58 | EDRN ---
Dr. Nuñez at bedside working on admission orders on patient.
[2025-03-29] VITALS: BP 101/58
[2025-03-29 01:30] VITALS: BP 103/61; BMI 25.4
[2025-03-29] MEDS: ZITHROMAX INFUSION 250 IV (02:11)
--- NOTE | 2025-03-29 03:06 | PTCARENOTE ---
Received patient from ED. Patient walked from stretcher to the bed. Pt AAOx3, vitals stable and call barrera within reach. Patient care ongoing
[2025-03-29] MEDS: STERILE WATER FOR INJECTION 10 ML IV ×3 (05:09→20:06)
[2025-03-29] MEDS: MAXIPIME 1000 MG IV ×3 (05:10→20:05)
[2025-03-29 05:41] LABS: Hematocrit 28.3 % (39.0-52.0); Hemoglobin 9.6 g/dL (13.0-18.0); Mean Corp Hgb Conc. 33.9 g/dL (33.0-37.0); Mean Corpuscular Volume 84.0 fL (80.0-94.0); Platelet Count 160 10^3/uL (130-400); Red Cell Dist. Width 15.3 % (11.5-14.5)
[2025-03-29 06:04] LABS: Blood Urea Nitrogen 20 mg/dl (9-20); Calcium 8.5 mg/dl (8.4-10.2); Carbon Dioxide 25 mmol/L (22-30); Chloride 106 mmol/L (98-107); Estimated Creatinine Clearance 53 ml/min; Glucose 151 mg/dl (70-99); Potassium 3.9 mmol/L (3.5-5.1); Sodium 134 mmol/L (135-145); eGFR > 60.00
[2025-03-29 07:00] VITALS: BP 108/72
[2025-03-29 07:10] LABS: Hepatitis C Antibody Negative (Negative)
[2025-03-29 07:16] VITALS: BP 103/69
[2025-03-29 07:21] LABS: Procalcitonin 0.12 ng/ml (0.0-0.25)
[2025-03-29] MEDS: PULMICORT 0.5 MG INH ×2 (07:32→20:22)
[2025-03-29] MEDS: DUONEB 3 ML INH ×4 (07:32→20:21)
[2025-03-29] MEDS: CLARITIN 10 MG PO (08:08)
[2025-03-29] MEDS: LOW STRENGTH ASPIRIN 81 MG PO (08:08)
[2025-03-29] MEDS: COLACE 100 MG PO ×2 (08:08→20:05)
[2025-03-29] MEDS: MUCINEX 600 MG PO ×2 (08:08→20:05)
[2025-03-29] MEDS: PROTONIX 40 MG PO (08:08)
[2025-03-29] MEDS: VALTREX 500 MG PO (08:08)
[2025-03-29] MEDS: SINGULAIR 10 MG PO (08:08)
[2025-03-29] MEDS: MYCELEX TROCHE 10 MG PO ×5 (08:09→21:35)
[2025-03-29] MEDS: SOLU-MEDROL PF 40 MG IV ×2 (10:57→21:34)
--- NOTE | 2025-03-29 11:11 | CM ---
CM reviewed chart, patient seen bedside, initial assessment completed. Patient reports he was recently discharged from Hospital. Patient confirms he resides with his spouse in a two story home with basement, about 21 steps to enter home. Patient
denies use of DME for ambulation, reports having a nebulizer in the home. Patient reports VN in past, believes it was through [facility], denies SNF. Patient PCP Lenny uYen, pharmacy [facility] in [place]. Patient denies insecurities at home. Patient
inquiring about Pulm consult. CM will continue to follow for all discharge planning needs.
Plan; home with
--- NOTE | 2025-03-29 12:18 | CON.PUL ---
Consultation
Consultation Request
Date/Time Consultation Requested: 03/29/25
Date/Time Consultation Performed: 03/29/25
Performing Provider: Susannah
Reason for Consultation: PNA
Medical History
-
History of Present Illness:
Patient is a 74-year-old male with previous history of lymphoma on Rituxan, lung cancer status post lobectomy, hypertension with recent admission to for atypical pneumonia status post IV antibiotics, discharged 03/07/2025; presenting to ER for
ongoing respiratory complaints and fever of 101.4 [address]. He underwent recent CT scan as an outpatient demonstrating progression of tree-in-bud opacities, he was instructed to go to the ER if he had any new or worsening fevers or complaints.
Past Medical History
Past Medical History: Other (see list)
Social History
Tobacco: Former Smoker
Alcohol: None
Drug: None
Allergies / Home Medications
Allergies
Allergy/AdvReac Type Severity Reaction Status Date / Time
No Known Allergies Allergy Unverified 06/21/22 12:50
Home Medications
�Medication �Instructions �Recorded �Confirmed �Last Taken �Type
valacyclovir 500 mg tablet 500 mg PO DAILY Infection 07/25/17 03/28/25 Unknown History
amlodipine 2.5 mg tablet 2.5 mg PO DAILY Blood Pressure 03/02/25 03/28/25 Unknown History
aspirin 81 mg tablet 81 mg PO DAILY Blood Clot 03/02/25 03/28/25 Unknown History
Prevention/Tx
atorvastatin 40 mg tablet 40 mg PO HS High Cholesterol 03/02/25 03/28/25 Unknown History
cholecalciferol (vitamin D3) 25 25 mcg PO DAILY Supplement 03/02/25 03/28/25 Unknown History
mcg (1,000 unit) tablet (Vitamin
D3)
lifitegrast 5 % eye drops in a 1 drp ophthalmic (eye) BID Eye 03/02/25 03/28/25 Unknown History
dropperette (Xiidra) Condition
loratadine 10 mg tablet 10 mg PO DAILY Allergies 03/02/25 03/28/25 Unknown History
losartan 50 mg tablet 50 mg PO DAILY Blood Pressure 03/02/25 03/28/25 Unknown History
montelukast 10 mg tablet 10 mg PO DAILY Allergies 03/02/25 03/28/25 Unknown History
pantoprazole 40 mg tablet,delayed 40 mg PO 1XD Gastrointestinal Issue 03/02/25 03/28/25 Unknown History
release
tamsulosin 0.4 mg capsule (Flomax) 0.8 mg PO HS Urinary Issue 03/02/25 03/28/25 Unknown History
lifitegrast 5 % eye drops in a 1 drp ophthalmic (eye) BID dry eyes 03/03/25 03/28/25 03/02/25 23:00 History
dropperette (Xiidra)
budesonide 0.5 mg/2 mL suspension 0.5 mg (2 mL) inhalation R BID #60 03/07/25 03/28/25 Unknown Rx
for nebulization mL
chlorthalidone 25 mg tablet 12.5 mg (1/2 x 25 mg) PO DAILY #30 03/07/25 03/28/25 Unknown Rx
tabs
clotrimazole 10 mg wyatt 10 mg PO 5/D #20 tabs 03/07/25 03/28/25 Unknown Rx
doxycycline hyclate 100 mg capsule 100 mg PO Q12 #20 caps 03/07/25 03/28/25 Unknown Rx
prednisone 20 mg tablet 40 mg (2 x 20 mg) PO DAILY #30 tabs 03/07/25 03/28/25 Unknown Rx
Review of Systems
-
History Source: Patient
All other systems: Negative unless noted
Vitals / Labs / Diagnostic Testing
Vital Signs
Temp Pulse Resp BP Pulse Ox
98.1 F 78 16 103/69 96
03/29/25 07:16 03/29/25 07:37 03/29/25 07:37 03/29/25 07:16 03/29/25 07:37
Lab Data
03/29/25 05:29
03/29/25 05:29
Microbiology
03/29/25 02:29 Urine Legionella Urinary Antigen - Final
Negative for Legionella pneumophila Serogroup 1 antigen.
A negative result does not rule out the possiblity of
Legionella infection due to other serogroups or species of
Legionella. Clinical correlation is recommended.
03/29/25 02:29 Urine Streptococcus pneumoniae Antigen (M - Final
Negative for Streptococcus pneumoniae antigen.
A negative result does not exclude infection with
Streptococcus pneumoniae. Clinical correlation is
recommended.
03/28/25 22:29 Nasal Swab Influenza Types A & B (ALIA) - Final
Negative for Influenza A & B, NAAT
Negative results must be combined with clinical observations
and patient history.
Nucleic Acid Amplification test (NAAT)performed on the
[employer] platform.
Diagnostic Testing:
Physical Exam
-
HEENT: Normocephalic, Anicteric and Moist Mucous Membranes
Cardiovascular: S1/S2 and Regular Rhythm
Respiratory: Rales, Rhonchi and Non-Labored Respirations
GI: Soft, Non Distended and Non Tender
Neurology: Awake, Alert, Oriented and No Motor Deficits
Skin: Warm, Dry and Good Color
General: Comfortable and Other (NAD)
Assessment
-
Patient is a 74-year-old male with previous history of lymphoma on Rituxan, lung cancer status post lobectomy, hypertension with recent admission to for atypical pneumonia status post IV antibiotics, discharged 03/07/2025; presenting to ER for
ongoing respiratory complaints and fever of 101.4 [address]. He underwent recent CT scan as an outpatient demonstrating progression of tree-in-bud opacities, he was instructed to go to the ER if he had any new or worsening fevers or complaints.
Recurrent atypical pneumonia in immunocompromised patient on Rituxan
Chronic cough/sputum production
Postnasal drip/sinusitis
Hyponatremia, mild
Hyperglycemia
Conditions present prior to admission:
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
Lung cancer status post lobectomy 2023-[facility].
Hypertension.
Hyperlipidemia.
History of Angelica-Payne syndrome
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
Lichen planus
Diverticulosis
History of torn meniscus of left knee
Chronic constipation
Benzodiazepine dependence
History of COVID-19
CAD
Plan
Respiratory decompensation likely related to bronchitis/pneumonia-patient reports most recent cultures usual respiratory kori
Repeat CT done as outpatient demonstrating more tree-in-bud opacities in the right
Was recently treated for pneumonia with empiric antibiotics discharged 03/07/25
Similar symptoms appear to have returned
He is started on IV abx and steroids
Will add airway clearance measures
Mucolytic's continue
Nebulizers continue-DuoNeb and budesonide
Mucus clearing devices-Acapella.
Incentive spirometry
Vest therapy- continue for an additional 24 hours.
Speech eval on last admission 03/06/2025 with suspected mild pharyngeal dysphagia, diet modification was were recommended
He exhibits some esophageal dysfunction with spasm in the setting of pill esophagitis with known history of GERD and Juarez's esophagus, history of Angelica-Payne tear
May consider repeat evaluation
He has had fevers overnight at home, in the background setting of his immunosuppression
We discussed need for bronchoscopy as this was being planned as an outpatient, I will see if there is room on the schedule this coming week for procedure
He was agreeable
CT sinuses 03/03/25-mild sinusitis, left frontal sinus, left anterior ethmoid air cells and right posterior ethmoid air cells which appears new from 2023
Chronic sinusitis was a noted issue from last admission as well
DVT prophylaxis-on Lovenox
GI prophylaxis-on pantoprazole
Nutrition
Early mobilization
Reviewed with patient
Outpatient pulmonary [id number] saw Dr. Willingham 01/27/2025 and then Mariam Loco CNP 02/16/2025 and has appointment with Mariam on 04/20/25
We will follow
Diagnostic data:
Chest x-ray 04/13/2023-NAD
Chest x-ray 10/22/2024-NAD
Chest x-ray 12/26/2024-NAD
Chest x-ray 01/28/2025-NAD
Chest x-ray 02/12/2025-NAD
CT chest 03/02/2025-no evidence for pulm embolism, mild bronchial wall thickening and bibasilar opacifications which likely represent multifocal pneumonia
CT Chest 03/27/25- Progressive pulmonary parenchymal disease process throughout the right lower lobe, despite interval improvement in previously noted parenchymal disease in the anterior right lower lobe. Faint areas of minor involvement are also
suggested in the posterior segment of the left upper lobe. Possible considerations include aspiration, infection (airway spread of tuberculosis or nontuberculous mycobacterial infection, fungus), obliterative bronchiolitis.
CT sinus 10/31/23-severe right nasal septal deviation, mild mucosal thickening ethmoid sinuses
Stress echocardiogram 10/31/23-normal stress echocardiogram, EF 55-60% and postexercise 65-70%
ECHO 10/17/22- Normal biventricular size and systolic function without regional wall motion abnormality. Estimated VEF 65-70%. Aortic sclerosis without stenosis. Ectatic proximal ascending aorta: 3.8cm.
Total time spent on this consultation/encounter __75__ minutes which includes review of history, physical exam, medications, laboratory data, personal review of imaging, extensive review of outpatient records, discussion with care team and
respiratory therapy.
--- NOTE | 2025-03-29 14:12 | W.PN.HOSP.TC ---
Today's Communication/Plan
-
await pulm input
follow cultures
cont current treatments
Assessment / Plan
Assessment / Plan
pt is a 74 year old male
Multifocal pneumonia (did not meet sepsis criteria on admission)- most likely--persistent multifocal pneumonia with possible acute on chronic disease-- Fever to 101.7 at home, afebrile here, soon after completing his prednisone taper--follow
cultures--await pulm--consider need for ID consult--will defer bronch to pulm--cont nebs, IS, acapella--steroids--procalcitonin is neg but will continue cefepime for now with zithromax- He had extensive sputum sampling the last time which was
negative, still will obtain sputum culture and urinary antigens
Essential Hypertension--Holding chlorthalidone, amlodipine, and losartan for now pending as BP greater than 100
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
GERD - PPI
HLD - statin
DVT prophylaxis�Lovenox subc
CODE STATUS�full code
Anticipated Discharge: 24 - 48 hours
Subjective/Interval History
-
Date of Service: March 29, 2025
pt c/o coughing--asking if he needs a bronch
Objective Data
-
Labs:
Laboratory Results
03/29/25
05:29
WBC 8.6
Hgb 9.6 L
Hct 28.3 L
Plt Count 160
Sodium 134 L
Potassium 3.9
Chloride 106
Carbon Dioxide 25
BUN 20
Creatinine 1.0
Glucose 151 H
Calcium 8.5
Vital Signs:
max temp for 24 hours
03/29/25
07:16
Temp 98.1 F
Vital Signs
Temp Pulse Resp BP Pulse Ox
98.1 F 78 16 103/69 96
03/29/25 07:16 08/31/25 07:37 03/29/25 07:37 03/29/25 07:16 03/29/25 07:37
I&O
03/28/25 03/29/25 03/30/25
06:59 06:59 06:59
Intake Total 480 / 480
Output Total 550 / 550 600 / 600
Balance -70 / -70 -600 / -600
Review of Systems
-
All other systems: Reviewed and negative
Respiratory: Reports Cough
Physical Exam
-
General: Well Developed, Well Nourished and No Apparent Distress
HEENT: Normocephalic and Atraumatic
Respiratory: Rhonchi (diffusely)
Cardiac: Regular Rhythm and S1/S2; Negative Murmur
GI: Soft, Nontender, Nondistended and Normal Bowel Sounds
Musculoskeletal: No Clubbing, No Cyanosis and No Edema
Neuro: Awake
Psych: Calm
[2025-03-29 16:39] VITALS: BP 115/57
[2025-03-29] MEDS: LOVENOX 40 MG SC (17:36)
[2025-03-29] MEDS: LIPITOR 40 MG PO (21:35)
[2025-03-29] MEDS: FLOMAX 0.8 MG PO (21:35)
[2025-03-29 23:17] VITALS: BP 127/72
[2025-03-30] MEDS: ZITHROMAX INFUSION 250 IV (01:15)
[2025-03-30] MEDS: STERILE WATER FOR INJECTION 10 ML IV ×3 (03:28→21:06)
[2025-03-30] MEDS: MAXIPIME 1000 MG IV ×3 (03:28→21:06)
[2025-03-30 07:00] VITALS: BP 116/78
[2025-03-30] MEDS: PULMICORT 0.5 MG INH ×2 (07:24→19:47)
[2025-03-30] MEDS: DUONEB 3 ML INH ×4 (07:24→19:47)
[2025-03-30] MEDS: MUCINEX 600 MG PO ×2 (07:48→21:06)
[2025-03-30] MEDS: PROTONIX 40 MG PO (07:48)
[2025-03-30] MEDS: MYCELEX TROCHE 10 MG PO ×5 (07:48→21:07)
[2025-03-30] MEDS: VALTREX 500 MG PO (07:49)
[2025-03-30] MEDS: COLACE 100 MG PO ×2 (07:49→21:05)
[2025-03-30] MEDS: CLARITIN 10 MG PO (07:49)
[2025-03-30] MEDS: SINGULAIR 10 MG PO (07:49)
[2025-03-30] MEDS: LOW STRENGTH ASPIRIN 81 MG PO (07:49)
[2025-03-30 08:04] LABS: Hematocrit 27.0 % (39.0-52.0); Hemoglobin 9.1 g/dL (13.0-18.0); Mean Corp Hgb Conc. 33.7 g/dL (33.0-37.0); Mean Corpuscular Volume 85.2 fL (80.0-94.0); Platelet Count 185 10^3/uL (130-400); Red Cell Dist. Width 15.0 % (11.5-14.5)
[2025-03-30 08:48] LABS: Blood Urea Nitrogen 22 mg/dl (9-20); Calcium 8.8 mg/dl (8.4-10.2); Carbon Dioxide 24 mmol/L (22-30); Chloride 109 mmol/L (98-107); Estimated Creatinine Clearance 58 ml/min; Glucose 134 mg/dl (70-99); Magnesium 2.4 mg/dl (1.6-2.3); Potassium 4.1 mmol/L (3.5-5.1); Sodium 138 mmol/L (135-145); eGFR > 60.00
[2025-03-30] MEDS: OCEAN, SALINE MIST 1 SPRAYS NASAL ×2 (09:49→17:04)
[2025-03-30] MEDS: SOLU-MEDROL PF 40 MG IV ×2 (09:49→21:07)
[2025-03-30 11:01] VITALS: BP 112/70; PULSE 73; O2SAT 97
--- NOTE | 2025-03-30 11:36 | W.PN.HOSP.TC ---
Today's Communication/Plan
-
follow sputum culture
cont cefepime/zmax/acyclovir
VSE in AM
bronch as per pulm
Assessment / Plan
Assessment / Plan
pt is a 74 year old male
Multifocal pneumonia (did not meet sepsis criteria on admission)- most likely--persistent multifocal pneumonia with possible acute on chronic disease, sputum culture with gm neg bacilli identification still pending-- Fever to 101.7 at home, afebrile
here, soon after completing his prednisone taper--follow cultures--apprec pulm--consider need for ID consult--will defer bronch to pulm, wants as inpt, also wants speech eval, ordered VSE for AM--cont nebs, IS, acapella--steroids--procalcitonin is
neg but will continue cefepime/zithromax- He had extensive sputum sampling the last time which was negative, still will obtain sputum culture and urinary antigens
Essential Hypertension--Holding chlorthalidone, amlodipine, and losartan for now pending as BP greater than 100
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
GERD - PPI
HLD - statin
DVT prophylaxis�Lovenox subc
CODE STATUS�full code
Anticipated Discharge: > 48 hours
Subjective/Interval History
-
Date of Service: March 30, 2025
spoke with pt (and by phone)--says he is coughing less but not sleeping well--wants bronch as inpt
Objective Data
-
Labs:
Laboratory Results
03/30/25
06:21
WBC 13.9 H
Hgb 9.1 L
Hct 27.0 L
Plt Count 185
Sodium 138
Potassium 4.1
Chloride 109 H
Carbon Dioxide 24
BUN 22 H
Creatinine 0.9
Glucose 134 H
Calcium 8.8
Vital Signs:
max temp for 24 hours
03/29/25
16:39
Temp 98 F
Vital Signs
Temp Pulse Resp BP Pulse Ox
98.1 F 74 18 116/78 96
03/30/25 07:00 03/30/25 11:26 03/30/25 11:26 03/30/25 07:00 03/30/25 11:26
I&O
03/29/25 03/30/25 03/31/25
06:59 06:59 06:59
Intake Total 480 / 480 150 / 150
Output Total 550 / 550 600 / 600
Balance -70 / -70 -450 / -450
Review of Systems
-
All other systems: Reviewed and negative
Respiratory: Reports Cough
Physical Exam
-
General: Well Developed, Well Nourished and No Apparent Distress
HEENT: Normocephalic and Atraumatic; Negative Oxygen
Respiratory: Rhonchi (all lung ruiz)
Cardiac: Regular Rhythm and S1/S2; Negative Murmur
GI: Soft, Nontender, Nondistended and Normal Bowel Sounds
Musculoskeletal: No Clubbing, No Cyanosis and No Edema
Neuro: Awake and Alert
Psych: Calm
--- NOTE | 2025-03-30 13:07 | W.PN.PUL3 ---
Today's Communication / Plan
-
Sputum culture with prelim, await final
If able to isolate cause, can likely cancel procedure
Continue airway clearance measures
Abx adjustments when final cultures result
Assessment
-
Patient is a 74-year-old male with previous history of lymphoma on Rituxan, lung cancer status post lobectomy, hypertension with recent admission to for atypical pneumonia status post IV antibiotics, discharged 03/07/2025; presenting to ER for
ongoing respiratory complaints and fever of 101.4 [address]. He underwent recent CT scan as an outpatient demonstrating progression of tree-in-bud opacities, he was instructed to go to the ER if he had any new or worsening fevers or complaints.
Recurrent atypical pneumonia in immunocompromised patient on Rituxan
Chronic cough/sputum production
GNB in sputum, likely pseudomonas
Postnasal drip/sinusitis
Hyponatremia, mild
Hyperglycemia
Conditions present prior to admission:
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
Lung cancer status post lobectomy 2023-[facility].
Hypertension.
Hyperlipidemia.
History of Angelica-Payne syndrome
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
Lichen planus
Diverticulosis
History of torn meniscus of left knee
Chronic constipation
Benzodiazepine dependence
History of COVID-19
CAD
Plan
Respiratory decompensation likely related to bronchitis/pneumonia-patient reports most recent cultures usual respiratory kori
Repeat CT done as outpatient demonstrating more tree-in-bud opacities in the right
Was recently treated for pneumonia with empiric antibiotics discharged 03/07/25
Similar symptoms appear to have returned
He is started on IV abx and steroids
Will add airway clearance measures
Mucolytic's continue
Nebulizers continue-DuoNeb and budesonide
Mucus clearing devices-Acapella.
Incentive spirometry
Vest therapy- continue for an additional 24 hours.
Speech eval on last admission 03/06/2025 with suspected mild pharyngeal dysphagia, diet modification was were recommended
He exhibits some esophageal dysfunction with spasm in the setting of pill esophagitis with known history of GERD and Juarez's esophagus, history of Angelica-Payne tear
May consider repeat evaluation
Sputum culture with prelim GNB likely pseudomonas but will await final
He has had fevers overnight at home, in the background setting of his immunosuppression
We discussed need for bronchoscopy as this was being planned as an outpatient, I will see if there is room on the schedule this coming week for procedure
He was agreeable
If sputum is conclusive, can consider cancelling procedure this week
CT sinuses 03/03/25-mild sinusitis, left frontal sinus, left anterior ethmoid air cells and right posterior ethmoid air cells which appears new from 2023
Chronic sinusitis was a noted issue from last admission as well
DVT prophylaxis-on Lovenox
GI prophylaxis-on pantoprazole
Nutrition
Early mobilization
Reviewed with patient
Outpatient pulmonary [id number] saw Dr. Willingham 01/27/2025 and then Mariam Loco CNP 02/16/2025 and has appointment with Mariam on 04/20/25
We will follow
Diagnostic data:
Chest x-ray 04/13/2023-NAD
Chest x-ray 10/22/2024-NAD
Chest x-ray 12/26/2024-NAD
Chest x-ray 01/28/2025-NAD
Chest x-ray 02/12/2025-NAD
CT chest 03/02/2025-no evidence for pulm embolism, mild bronchial wall thickening and bibasilar opacifications which likely represent multifocal pneumonia
CT Chest 03/27/25- Progressive pulmonary parenchymal disease process throughout the right lower lobe, despite interval improvement in previously noted parenchymal disease in the anterior right lower lobe. Faint areas of minor involvement are also
suggested in the posterior segment of the left upper lobe. Possible considerations include aspiration, infection (airway spread of tuberculosis or nontuberculous mycobacterial infection, fungus), obliterative bronchiolitis.
CT sinus 10/31/23-severe right nasal septal deviation, mild mucosal thickening ethmoid sinuses
Stress echocardiogram 10/31/23-normal stress echocardiogram, EF 55-60% and postexercise 65-70%
ECHO 10/17/22- Normal biventricular size and systolic function without regional wall motion abnormality. Estimated VEF 65-70%. Aortic sclerosis without stenosis. Ectatic proximal ascending aorta: 3.8cm.
Total time spent on this consultation/encounter __35__ minutes which includes review of history, physical exam, medications, laboratory data, personal review of imaging, extensive review of outpatient records, discussion with care team and
respiratory therapy.
Subjective Data
-
Date of Service:
Date of Service: March 30, 2025
Chief Complaint: Pulmonary Follow Up
Subjective:
No new complaints, stable on RA
Objective Data
Data Reviewed
Vital Signs / I&O / Oxygen:
Vital Signs
Temp Pulse Resp BP Pulse Ox
98.1 F 74 18 116/78 96
03/30/25 07:00 03/30/25 11:26 03/30/25 11:26 03/30/25 07:00 03/30/25 11:26
Intake and Output
03/29/25 03/30/25 03/31/25
06:59 06:59 06:59
Intake Total 480 / 480 150 / 150
Output Total 550 / 550 600 / 600
Balance -70 / -70 -450 / -450
SaO2 96
Physical Exam
General: Comfortable and Other (NAD)
HEENT: Normocephalic, Anicteric and Moist Mucous Membranes
Cardiovascular: S1-S2 and Regular Rhythm
Respiratory: Crackles, Rhonchi and Non-Labored Respirations
GI: Soft, Non Distended and Non Tender
Neurology: Awake, Alert, Oriented and No Motor Deficits
Skin: Warm, Dry and Good Color
Labs/Micro/Reports
Lab Data
03/30/25 06:21
03/30/25 06:21
Microbiology
03/29/25 02:09 Nose MRSA Screen - Final
No Methicillin Resistant Staphylococcus aureus isolated.
03/29/25 11:16 Sputum Respiratory Culture - Preliminary
Gram negative bacilli
03/29/25 11:16 Sputum Gram Stain - Preliminary
03/29/25 05:30 Blood/Venous Blood Culture - Preliminary
No Growth in 24 hours- Final report to follow
03/28/25 19:48 Blood/Venous Blood Culture - Preliminary
No Growth in 24 hours- Final report to follow
03/29/25 02:29 Urine Legionella Urinary Antigen - Final
Negative for Legionella pneumophila Serogroup 1 antigen.
A negative result does not rule out the possiblity of
Legionella infection due to other serogroups or species of
Legionella. Clinical correlation is recommended.
03/29/25 02:29 Urine Streptococcus pneumoniae Antigen (M - Final
Negative for Streptococcus pneumoniae antigen.
A negative result does not exclude infection with
Streptococcus pneumoniae. Clinical correlation is
recommended.
03/28/25 22:29 Nasal Swab Influenza Types A & B (ALIA) - Final
Negative for Influenza A & B, NAAT
Negative results must be combined with clinical observations
and patient history.
Nucleic Acid Amplification test (NAAT)performed on the
[employer] platform.
[2025-03-30 15:00] VITALS: BP 122/76
[2025-03-30] MEDS: LOVENOX 40 MG SC (17:02)
[2025-03-30] MEDS: MELATONIN 5 MG PO (21:05)
[2025-03-30] MEDS: FLOMAX 0.8 MG PO (21:06)
[2025-03-30] MEDS: LIPITOR 40 MG PO (21:07)
[2025-03-30 23:24] VITALS: BP 114/67
[2025-03-31] VITALS (7 sets, daily range): BP systolic 102–143; BP diastolic 70–82
[2025-03-31] MEDS: ZITHROMAX INFUSION 250 IV (01:56)
[2025-03-31] MEDS: MAXIPIME 1000 MG IV ×4 (03:23→23:00)
[2025-03-31] MEDS: STERILE WATER FOR INJECTION 10 ML IV ×3 (03:23→23:00)
[2025-03-31] MEDS: VALTREX 500 MG PO (07:40)
[2025-03-31] MEDS: MUCINEX 600 MG PO ×2 (07:40→21:11)
[2025-03-31] MEDS: MYCELEX TROCHE 10 MG PO ×5 (07:40→21:11)
[2025-03-31] MEDS: LOW STRENGTH ASPIRIN 81 MG PO (07:40)
[2025-03-31] MEDS: COLACE 100 MG PO ×2 (07:40→21:10)
[2025-03-31] MEDS: SINGULAIR 10 MG PO (07:40)
[2025-03-31] MEDS: CLARITIN 10 MG PO (07:40)
[2025-03-31] MEDS: PROTONIX 40 MG PO (07:40)
[2025-03-31] MEDS: PULMICORT 0.5 MG INH ×2 (07:59→19:19)
[2025-03-31] MEDS: DUONEB 3 ML INH ×3 (07:59→19:18)
[2025-03-31 08:49] LABS: Hematocrit 29.4 % (39.0-52.0); Hemoglobin 9.6 g/dL (13.0-18.0); Mean Corp Hgb Conc. 32.7 g/dL (33.0-37.0); Mean Corpuscular Volume 86.0 fL (80.0-94.0); Platelet Count 223 10^3/uL (130-400); Red Cell Dist. Width 15.3 % (11.5-14.5)
[2025-03-31 09:49] LABS: Blood Urea Nitrogen 25 mg/dl (9-20); Calcium 9.3 mg/dl (8.4-10.2); Carbon Dioxide 24 mmol/L (22-30); Chloride 109 mmol/L (98-107); Estimated Creatinine Clearance 53 ml/min; Glucose 103 mg/dl (70-99); Magnesium 2.2 mg/dl (1.6-2.3); Potassium 4.3 mmol/L (3.5-5.1); Sodium 139 mmol/L (135-145); eGFR > 60.00
[2025-03-31] MEDS: SOLU-MEDROL PF 40 MG IV ×2 (09:55→21:11)
[2025-03-31] MEDS: OCEAN, SALINE MIST 1 SPRAYS NASAL (09:58)
--- NOTE | 2025-03-31 10:01 | W.PN.PUL3 ---
Today's Communication / Plan
-
For bronchoscopy today
N.p.o.
Continue antibiotics
Continue secretion clearance intervention
Follow-up final sputum culture
Assessment
-
Patient is a 74-year-old male with previous history of lymphoma on Rituxan, lung cancer status post lobectomy, hypertension with recent admission to for atypical pneumonia status post IV antibiotics, discharged 03/07/2025; presenting to ER for
ongoing respiratory complaints and fever of 101.4 Fahrenheit. He underwent recent CT scan as an outpatient demonstrating progression of tree-in-bud opacities, he was instructed to go to the ER if he had any new or worsening fevers or complaints.
Recurrent atypical pneumonia in immunocompromised patient on Rituxan
Chronic cough/sputum production
GNB in sputum, likely pseudomonas
Postnasal drip/sinusitis
Hyponatremia, mild
Hyperglycemia
Conditions present prior to admission:
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
Lung cancer status post lobectomy 2023-.
Hypertension.
Hyperlipidemia.
History of Angelica-Payne syndrome
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
Lichen planus
Diverticulosis
History of torn meniscus of left knee
Chronic constipation
Benzodiazepine dependence
History of COVID-19
CAD
Plan
Respiratory decompensation likely related to bronchitis/pneumonia-patient reports most recent cultures usual respiratory kori
Repeat CT done as outpatient demonstrating more tree-in-bud opacities in the right
Was recently treated for pneumonia with empiric antibiotics discharged 03/07/25
Similar symptoms appear to have returned
-
Sputum culture with gram-negative carrillo
Continue cefepime for now
Will plan for bronchoscopy today: Patient is immunosuppressed. On Rituxan. 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 Scheduled with oncology at [facility] for IVIG next Sunday.
-
Bronchoscopy for BAL today, keep NPO.
Will send cell count, fungal culture, viral culture, cytology.
Procedure discussed with patient in detail.
-
Continue secretion clearance interventions.
Mucolytic's continue
Nebulizers continue-DuoNeb and budesonide
Mucus clearing devices-Acapella.
Incentive spirometry
Vest therapy- continue
Was placed on IV steroids from the emergency room: Not bronchospastic on exam. Will attempt to taper in the next 24 to 48 hours.
Speech eval on last admission 03/06/2025 with suspected mild pharyngeal dysphagia, diet modification was were recommended
He exhibits some esophageal dysfunction with spasm in the setting of pill esophagitis with known history of GERD and Juarez's esophagus, history of Angelica-Payne tear
Eventual modified barium swallow during this admission.
CT sinuses 03/03/25-mild sinusitis, left frontal sinus, left anterior ethmoid air cells and right posterior ethmoid air cells which appears new from 2023
Chronic sinusitis was a noted issue from last admission as well
DVT prophylaxis-on Lovenox
GI prophylaxis-on pantoprazole
Nutrition
Early mobilization
Reviewed with patient
Outpatient pulmonary [id number] saw Dr. Willingham 01/27/2025 and then Mariam Loco CNP 02/16/2025 and has appointment with Mariam on 04/20/25
We will follow
Diagnostic data:
Chest x-ray 04/13/2023-NAD
Chest x-ray 10/22/2024-NAD
Chest x-ray 12/26/2024-NAD
Chest x-ray 01/28/2025-NAD
Chest x-ray 02/12/2025-NAD
CT chest 03/02/2025-no evidence for pulm embolism, mild bronchial wall thickening and bibasilar opacifications which likely represent multifocal pneumonia
CT Chest 03/27/25- Progressive pulmonary parenchymal disease process throughout the right lower lobe, despite interval improvement in previously noted parenchymal disease in the anterior right lower lobe. Faint areas of minor involvement are also
suggested in the posterior segment of the left upper lobe. Possible considerations include aspiration, infection (airway spread of tuberculosis or nontuberculous mycobacterial infection, fungus), obliterative bronchiolitis.
CT sinus 10/31/23-severe right nasal septal deviation, mild mucosal thickening ethmoid sinuses
Stress echocardiogram 10/31/23-normal stress echocardiogram, EF 55-60% and postexercise 65-70%
ECHO 10/17/22- Normal biventricular size and systolic function without regional wall motion abnormality. Estimated VEF 65-70%. Aortic sclerosis without stenosis. Ectatic proximal ascending aorta: 3.8cm.
Total time spent on this consultation/encounter __40__ minutes which includes review of history, physical exam, medications, laboratory data, personal review of imaging, extensive review of outpatient records, discussion with care team and
respiratory therapy.
Subjective Data
-
Date of Service:
Date of Service: March 31, 2025
Chief Complaint: Pulmonary Follow Up (Pneumonia/immunosuppression)
Subjective:
Continues to have cough and intermittent phlegm production
Denies hemoptysis
Not on oxygen therapy
Review of Systems
General: Fever (n)
Cardiopulmonary: Dyspnea, Cough and Sputum Production
Objective Data
Data Reviewed
Vital Signs / I&O / Oxygen:
Vital Signs
Temp Pulse Resp BP Pulse Ox
97.7 F 77 18 128/82 97
03/31/25 07:00 03/31/25 08:02 03/31/25 08:02 03/31/25 07:00 03/31/25 08:02
Intake and Output
03/30/25 03/31/25 04/01/25
06:59 06:59 06:59
Intake Total 150 / 150 1335 / 1335
Output Total 600 / 600
Balance -450 / -450 1335 / 1335
SaO2 97
Physical Exam
General: Comfortable and Other (NAD)
HEENT: Normocephalic, Anicteric and Moist Mucous Membranes
Cardiovascular: S1-S2 and Regular Rhythm
Respiratory: Crackles, Rhonchi and Non-Labored Respirations
GI: Soft, Non Distended and Non Tender
Neurology: Awake, Alert, Oriented and No Motor Deficits
Skin: Warm, Dry and Good Color
Labs/Micro/Reports
Lab Data
03/31/25 07:48
03/31/25 07:48
Microbiology
03/29/25 05:30 Blood/Venous Blood Culture - Preliminary
No Growth in 48 hours- Final report to follow
03/28/25 19:48 Blood/Venous Blood Culture - Preliminary
No Growth in 48 hours- Final report to follow
03/29/25 02:09 Nose MRSA Screen - Final
No Methicillin Resistant Staphylococcus aureus isolated.
03/29/25 11:16 Sputum Respiratory Culture - Preliminary
Gram negative bacilli
03/29/25 11:16 Sputum Gram Stain - Preliminary
03/29/25 02:29 Urine Legionella Urinary Antigen - Final
Negative for Legionella pneumophila Serogroup 1 antigen.
A negative result does not rule out the possiblity of
Legionella infection due to other serogroups or species of
Legionella. Clinical correlation is recommended.
03/29/25 02:29 Urine Streptococcus pneumoniae Antigen (M - Final
Negative for Streptococcus pneumoniae antigen.
A negative result does not exclude infection with
Streptococcus pneumoniae. Clinical correlation is
recommended.
03/28/25 22:29 Nasal Swab Influenza Types A & B (ALIA) - Final
Negative for Influenza A & B, NAAT
Negative results must be combined with clinical observations
and patient history.
Nucleic Acid Amplification test (NAAT)performed on the
[employer] platform.
--- NOTE | 2025-03-31 10:50 | W.PN.HOSP.TC ---
Today's Communication/Plan
-
see A/P
Assessment / Plan
Assessment / Plan
A/P:
# Multifocal pneumonia (did not meet sepsis criteria on admission)
# Persistent multifocal pneumonia with possible acute on chronic disease
CT Chest: Progressive pulmonary parenchymal disease process throughout the right lower lobe. Possible considerations include aspiration, infection (airway spread of tuberculosis or nontuberculous mycobacterial infection, fungus), obliterative
bronchiolitis.
sputum culture with GNR, pending S/S
for bronch today per pulm
for VSE today after bronch
Cont current cefepime/azithromycin
Cont current steroid solumedrol
cont nebs, IS, acapella
ID CS due to recurrent nature of current multifocal pneumonia
Pulm on board
# Essential Hypertension
Holding chlorthalidone, amlodipine, and losartan
BP stable currently off med
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
# GERD - PPI
# HLD - statin
DVT prophylaxis�Lovenox subc
CODE STATUS�full code
DW RN
total time 51 min
Anticipated Discharge: > 48 hours
Subjective/Interval History
-
Date of Service: March 31, 2025
Objective Data
-
Labs:
Laboratory Results
03/31/25
07:48
WBC 13.7 H
Hgb 9.6 L
Hct 29.4 L
Plt Count 223 D
Sodium 139
Potassium 4.3
Chloride 109 H
Carbon Dioxide 24
BUN 25 H
Creatinine 1.0
Glucose 103 H
Calcium 9.3
Vital Signs:
Vital Signs
Temp Pulse Resp BP Pulse Ox
36.5 C 77 18 128/82 97
03/31/25 07:00 03/31/25 08:02 03/31/25 08:02 03/31/25 07:00 03/31/25 08:02
I&O
03/30/25 03/31/25 04/01/25
06:59 06:59 06:59
Intake Total 150 / 150 1335 / 1335
Output Total 600 / 600
Balance -450 / -450 1335 / 1335
Review of Systems
-
All other systems: Reviewed and negative
Respiratory: Reports Cough
Physical Exam
-
General: Well Developed, Well Nourished, No Apparent Distress, Comfortable and Conversant
HEENT: Normocephalic and Atraumatic; Negative Oxygen
Respiratory: Rhonchi (all lung ruiz) and Non Labored Respirations; Negative Accessory Resp Muscle Use
Cardiac: Regular Rhythm and S1/S2; Negative Murmur
GI: Soft, Nontender, Nondistended and Normal Bowel Sounds
Musculoskeletal: No Clubbing, No Cyanosis and No Edema
Neuro: Awake and Alert
Psych: Calm and Intact Judgement/Insight
Data Reviewed
-
CT Scan: Report Reviewed by me
Labs: Labs Reviewed by me
--- NOTE | 2025-03-31 12:07 | W.PN.UPDATE ---
Update Note
Progress Note Update
Bronchoscopy performed under anesthesia.
LMA placed.
Bronchoscopy with advanced without difficulties.
Vocal cords appears edematous. No polyps noted.
Vocal cords move freely.
Trachea normal caliber. No secretions
Suzanna appeared sharp
Whitish secretion found throughout the tracheobronchial tree bilaterally. Suction without difficulties
Washings were sent
BAL of the right lower lobe was sent: Airway was erythematous. Mild bleeding after wedging bronchoscope. Easily controlled
Return initially clear then slightly bloody. Suspect traumatic
Sent for bacterial, fungal, viral, cell count and cytology.
Patient tolerated procedure well.
No immediate complications.
Will return to his room.
[2025-03-31] MEDS: DUONEB INH (12:16)
[2025-03-31] MEDS: STERILE WATER FOR INJECTION IV (12:40)
--- NOTE | 2025-03-31 12:57 | CM ---
Chart reviewed and patient to return to home with spouse when stable, patient is on room air.
Plan; Home with spouse when stable
--- NOTE | 2025-03-31 14:32 | CON.ID ---
Consultation
-
Date/Time Consultation Requested: March 31, 2025 1102
Date/Time Consultation Performed: March 31, 2025 1430
Requesting Provider: Dr. Fátima Peterson
Performing Provider: Dr. Devora Coates
Reason for Consultation: Recurrent multifocal pneumonia
Chief Complaint / Past History
Chief Complaint
Fever and cough
History of Present Illness
74-year-old male with history of lung cancer status post right upper lobectomy 2023, MALT lymphoma completed Rituxan in August 2024 who presented to the hospital on March 28 due to fever up to one 101.7. Patient was recently hospitalized from
March 02- March 07 with pneumonia and subsequently discharged on doxycycline. He reports no improvement of the cough or shortness of breath since discharge. He states he has been having cough for about 1 year. Cough seems to be associated with
eating. Last hospitalization he did have swallow evaluation suspicious for possible aspiration. He reports the cough has been getting worse. More recently the sputum turned green. Positive chills and fever. No headache. No sore throat.
Positive vomiting after coughing. No diarrhea. No abdominal pain. No urine symptoms. No ill contacts. No pets. 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 No recent travel. He does not garden. Today he underwent bronchoscopy.
Past History
Additional Past Medical History:
MALT lymphoma on completed Rituxan in 08/2024
Lung ca s/p R upper lobectomy 2023
HTN
Dyslipidemia
Juarez's esophagus
Oral Lichen planus
Chronic constipation
Geographic tongue
Hiatal hernia
Additional Past Surgical History:
R knee meniscus repair
Allergy History:
No Known Allergies Allergy (Unverified 06/21/22 12:50)
Medications Reviewed: Yes
Current Antibiotics:
Cefepime d4
Azithromycin d4
Social History
Tobacco: Former Smoker
Alcohol: Occasional
Drug: None
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
Living: With Family
Family History
Family History: Not Pertinent
Review of Systems
Review of Systems
General: Fever, Chills and Change in Appetite
HEENT: Negative Sinus Problems, Headache or Pharyngitis
Cardiovascular: Negative Chest Pain or Edema
Respiratory: Dyspnea, Cough and Sputum Production
Gasteroenterology: Negative Diarrhea
Genital / Urological: Negative Dysuria or Flank Pain
Endocrine: Weakness
Skin / Hair / Nails: Negative Rash
All systems: All other systems were reviewed and were negative
Vital Signs
Temp Pulse Resp BP Pulse Ox
97.2 F 63 17 129/73 98
03/31/25 12:39 03/31/25 12:45 03/31/25 12:45 03/31/25 12:45 03/31/25 12:45
Physical Exam
Physical Exam
Constitutional: No Acute Distress and Non-toxic
Head: Other (No frontal or maxillary sinus tenderness)
Eyes: No Conjunctival Hemorrhage and Sclera Anicteric
Cardiovascular: Regular Rate and S1/S2
Pulmonary: Rales (Crackles right base)
Gastrointestinal: Soft, Non Distended and Normal Bowel Sounds
Genito-Urinary: Negative CVA Tenderness
Extremities: Negative Edema
Neurological: AO x 3
Lab / Diagnostic Study Results
03/31/25 07:48
03/31/25 07:48
Abs Immat Gran (auto) 0.0 10^3/uL (0-0.05) 03/28/25 19:48
Absolute Neuts (auto) 7.9 10^3/uL (1.4-6.5) H 03/28/25 19:48
Absolute Lymphs (auto) 1.7 10^3/uL (1.2-3.4) 03/28/25 19:48
Absolute Monos (auto) 0.8 10^3/uL (0.1-0.6) H 03/28/25 19:48
Absolute Basos (auto) 0.0 10^3/uL (0-0.2) 03/28/25 19:48
Immature Gran % 0.4 % (0-0.5) 03/28/25 19:48
Neutrophils % 72.6 % (42.2-75.2) 03/28/25 19:48
Lymphocytes % 16.0 % (20.5-51.1) L 03/28/25 19:48
Monocytes % 7.7 % (1.7-9.3) 03/28/25 19:48
Eosinophils % 3.0 % (0-6) 03/28/25 19:48
Basophils % 0.3 % (0-2) 03/28/25 19:48
Lactic Acid Cancelled 03/28/25 23:45
Procalcitonin 0.12 ng/ml (0.0-0.25) 03/29/25 05:29
Microbiology Results
Micro:
03/31/25 12:09 Fungal Culture - Pending
Bronch Right Lower Lobe
03/31/25 12:10 Respiratory Culture - Pending
Bronch Right Lower Lobe Gram Stain - Pending
03/31/25 12:09 Acid Fast Bacilli Smear - Pending
Bronch Right Lower Lobe Acid Fast Bacilli Culture - Pending
Respiratory Virus Culture - Pending
03/31/25 12:10 Respiratory Culture - Pending
Bronch Left Lower Lobe Gram Stain - Pending
03/31/25 12:09 Fungal Culture - Pending
Bronch Left Lower Lobe
03/31/25 12:09 Acid Fast Bacilli Smear - Pending
Bronch Left Lower Lobe Acid Fast Bacilli Culture - Pending
03/29/25 05:30 Blood Culture - Preliminary
Blood/Venous No Growth in 48 hours- Final report to follow
03/28/25 19:48 Blood Culture - Preliminary
Blood/Venous No Growth in 48 hours- Final report to follow
03/29/25 02:09 MRSA Screen - Final
Nose No Methicillin Resistant Staphylococcus aureus isolated.
03/29/25 11:16 Respiratory Culture - Preliminary
Sputum Gram negative bacilli
Gram Stain - Preliminary
03/29/25 02:29 Legionella Urinary Antigen - Final
Urine Negative for Legionella pneumophila Serogroup 1 antigen.
A negative result does not rule out the possiblity of
Legionella infection due to other serogroups or species of
Legionella. Clinical correlation is recommended.
Streptococcus pneumoniae Antigen (M - Final
Negative for Streptococcus pneumoniae antigen.
A negative result does not exclude infection with
Streptococcus pneumoniae. Clinical correlation is
recommended.
03/28/25 22:29 Influenza Types A & B (ALIA) - Final
Nasal Swab Negative for Influenza A & B, NAAT
Negative results must be combined with clinical observations
and patient history.
Nucleic Acid Amplification test (NAAT)performed on the
[employer] platform.
03/27/[address]: Progressive pulmonary parenchymal disease process throughout the right lower lobe, despite interval improvement in previously noted parenchymal disease in the anterior right lower lobe. Faint areas of minor involvement are also
suggested in the posterior segment of the left upper lobe.
Assessment / Plan
#Recurrent multifocal pneumonia
# Leukocytosis, on steroid
# Fever at home; afebrile in hospital
# MALT lymphoma completed Rituxan in 08/2024
# hx lung CA s/p right upper lobectomy
Plan:
- Suspect aspiration based on history
- For VSE study tomorrow
- Admission sputum gram-negative rods
- 9/2 Status post bronchoscopy. BAL cultures pending
- Agree with cefepime increase dose to 1 g IV every 6 hours
[2025-03-31 15:49] LABS: Brochalveolar Lavage Character Turbid (Clear); Brochalveolar Lavage Color Pink; Brochalveolar Lavage Volume 10 ml
[2025-03-31 15:52] LABS: Brochalveolar Lavage WBC 1237500 cells/ml
[2025-03-31] MEDS: LOVENOX 40 MG SC (17:07)
[2025-03-31] MEDS: FLOMAX 0.8 MG PO (21:11)
[2025-03-31] MEDS: LIPITOR 40 MG PO (21:11)
[2025-04-01] MEDS: ZITHROMAX INFUSION 250 IV (02:11)
[2025-04-01] MEDS: MAXIPIME 1000 MG IV ×2 (05:57→12:17)
[2025-04-01] MEDS: STERILE WATER FOR INJECTION 10 ML IV ×2 (05:58→12:17)
[2025-04-01] MEDS: PULMICORT 0.5 MG INH ×2 (07:32→19:13)
[2025-04-01] MEDS: DUONEB 3 ML INH ×3 (07:32→19:13)
[2025-04-01 07:55] LABS: Hematocrit 28.8 % (39.0-52.0); Hemoglobin 9.3 g/dL (13.0-18.0); Mean Corp Hgb Conc. 32.3 g/dL (33.0-37.0); Mean Corpuscular Volume 86.0 fL (80.0-94.0); Nucleated Red Blood Cells % 0 % (-); Platelet Count 230 10^3/uL (130-400); Red Cell Dist. Width 15.2 % (11.5-14.5)
[2025-04-01 08:00] VITALS: BP 127/85
[2025-04-01 08:29] LABS: Blood Urea Nitrogen 23 mg/dl (9-20); Calcium 9.4 mg/dl (8.4-10.2); Carbon Dioxide 27 mmol/L (22-30); Chloride 108 mmol/L (98-107); Estimated Creatinine Clearance 58 ml/min; Glucose 92 mg/dl (70-99); Potassium 4.4 mmol/L (3.5-5.1); Sodium 140 mmol/L (135-145); eGFR > 60.00
[2025-04-01 08:42] LABS: Magnesium 2.1 mg/dl (1.6-2.3)
[2025-04-01] MEDS: PROTONIX IV 40 MG IV (09:00)
[2025-04-01] MEDS: SOLU-MEDROL PF 40 MG IV (09:03)
[2025-04-01] MEDS: NSS (PRESERVATIVE FREE) 10 ML IV (09:03)
[2025-04-01] MEDS: VALTREX 500 MG PO (09:04)
[2025-04-01] MEDS: CLARITIN 10 MG PO (09:04)
[2025-04-01] MEDS: MYCELEX TROCHE 10 MG PO ×5 (09:04→22:04)
[2025-04-01] MEDS: MUCINEX 600 MG PO ×2 (09:04→19:30)
[2025-04-01] MEDS: LOW STRENGTH ASPIRIN 81 MG PO (09:05)
[2025-04-01] MEDS: SINGULAIR 10 MG PO (09:05)
[2025-04-01] MEDS: COLACE 100 MG PO ×2 (09:05→19:30)
--- NOTE | 2025-04-01 09:49 | W.PN.HOSP.TC ---
Today's Communication/Plan
-
for VSE today 04/01
Assessment / Plan
Assessment / Plan
A/P:
# Multifocal pneumonia (did not meet sepsis criteria on admission)
# Persistent multifocal pneumonia with possible acute on chronic disease
CT Chest: Progressive pulmonary parenchymal disease process throughout the right lower lobe. Possible considerations include aspiration, infection (airway spread of tuberculosis or nontuberculous mycobacterial infection, fungus), obliterative
bronchiolitis.
sputum culture growing GNR, pending S/S
s/p bronch 03/31: Whitish secretion found throughout the tracheobronchial tree bilaterally, washing sent. BAL of the right lower lobe was sent for bacterial, fungal, viral, cell count and cytology.
for VSE today 04/01
Cont cefepime/azithromycin
Cont current steroid solumedrol 40 mg Q12H
cont nebs, IS, acapella
Appreciate Pulm and ID input
# Essential Hypertension
Holding chlorthalidone, amlodipine, and losartan
BP stable currently off med
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
# GERD - PPI
# HLD - statin
DVT prophylaxis�Lovenox subc
CODE STATUS�full code
DW RN
Anticipated Discharge: > 48 hours
Subjective/Interval History
-
Date of Service: April 01, 2025
Objective Data
-
Labs:
Laboratory Results
04/01/25
06:52
WBC 12.6 H
Hgb 9.3 L
Hct 28.8 L
Plt Count 230
Sodium 140
Potassium 4.4
Chloride 108 H
Carbon Dioxide 27
BUN 23 H
Creatinine 0.9
Glucose 92
Calcium 9.4
Vital Signs:
Vital Signs
Temp Pulse Resp BP Pulse Ox
36.8 C 74 16 127/85 99
04/01/25 08:00 04/01/25 08:00 04/01/25 08:00 04/01/25 08:00 04/01/25 08:00
I&O
03/31/25 04/01/25 04/02/25
06:59 06:59 06:59
Intake Total 1335 / 1335 1030 / 1030
Balance 1335 / 1335 1030 / 1030
Review of Systems
-
All other systems: Reviewed and negative
Respiratory: Reports Cough
Physical Exam
-
General: Well Developed, Well Nourished, No Apparent Distress, Comfortable and Conversant (speak in full sentences)
HEENT: Normocephalic and Atraumatic; Negative Oxygen
Respiratory: Rhonchi (all lung ruiz) and Non Labored Respirations; Negative Accessory Resp Muscle Use
Cardiac: Regular Rhythm and S1/S2; Negative Murmur
GI: Soft, Nontender, Nondistended and Normal Bowel Sounds
Musculoskeletal: No Clubbing, No Cyanosis and No Edema
Neuro: Awake and Alert
Psych: Calm and Intact Judgement/Insight
Data Reviewed
-
CT Scan: Report Reviewed by me
Labs: Labs Reviewed by me
--- NOTE | 2025-04-01 10:45 | PTOTSP ---
Speech Language Pathology
VIDEOFLUOROSCOPIC SWALLOWING EXAMINATION (VSE) completed. Oropharyngeal swallow WFL. No penetration/aspiration or any significant pharyngeal residue noted with any consistencies trialed during study. Coughing noted after VSE completed. Unsure if
related to esophagus or other etiology.
Recommend:
(1) Continue regular solids/thin liquids
(2) General aspiration precautions
(3) Meds as tolerated
(4) Consider ENT given dysphonia and chronic cough
(5) CLINIQUE COUNTER MANAGER to sign off. Please reconsult as indicated
[2025-04-01] MEDS: DUONEB INH (11:39)
--- NOTE | 2025-04-01 12:34 | W.PN.ID1 ---
Date of Service
Date of Service: April 01, 2025
Today's Communication
See below.
Assessment / Plan
#Recurrent multifocal pneumonia
# Leukocytosis, on steroid
# Fever at home; afebrile in hospital
# MALT lymphoma completed Rituxan in 08/2024
# hx lung CA s/p right upper lobectomy
Plan:
- Passed VSE study
- Admission sputum gram-negative rods
- 03/31 Status post bronchoscopy. BAL culture Stenotrophomonas
- Start minocycline 100mg po bid and levofloxacin 750mg po daily pending susceptibility.
- DC cefepime.
Chief Complaint
-: Pneumonia
Subjective / Review of Systems
SOB a little better. Sputum production decreased.
Vital Signs / Physical Exam
Vital Signs
Vital Signs
Temp Pulse Resp BP Pulse Ox
98.2 F 74 16 127/85 99
04/01/25 08:00 04/01/25 08:00 04/01/25 08:00 04/01/25 08:00 04/01/25 08:00
Physical Exam
Constitutional: No Acute Distress and Comfortable
Eyes: No Conjunctival Hemorrhage and Sclera Anicteric
Cardiovascular: Regular Rate and S1/S2
Pulmonary: Rhonchi and Coarse
Gastrointestinal: Soft, Non Tender, Non Distended and Normal Bowel Sounds
Extremities: Negative Edema
Neurological: AO x 3
Objective Data
Lab Data
Lab Results
04/01/25 06:52
04/01/25 06:52
Estimated Creat Clear 58 ml/min 04/01/25 06:52
Lactic Acid Cancelled 03/28/25 23:45
Total Bilirubin 0.8 mg/dl (0.2-1.3) 03/28/25 19:48
AST 19 U/L (17-59) 03/28/25 19:48
ALT 22 U/L (0-50) 03/28/25 19:48
Alkaline Phosphatase 70 U/L (38-126) 03/28/25 19:48
Most recent labs reviewed.
Micro Results:
03/29/25 11:16 Respiratory Culture - Preliminary
Sputum Stenotrophomonas maltophilia
Gram Stain - Preliminary
03/31/25 12:10 Respiratory Culture - Preliminary
Bronch Right Lower Lobe Gram negative bacilli
Gram Stain - Preliminary
03/31/25 12:10 Respiratory Culture - Preliminary
Bronch Left Lower Lobe Gram negative bacilli
Gram Stain - Preliminary
03/29/25 05:30 Blood Culture - Preliminary
Blood/Venous No Growth in 72 hours- Final report to follow
03/28/25 19:48 Blood Culture - Preliminary
Blood/Venous No Growth in 72 hours- Final report to follow
03/31/25 12:09 Acid Fast Bacilli Smear - Pending
Bronch Left Lower Lobe Acid Fast Bacilli Culture - Pending
03/31/25 12:09 Fungal Culture - Pending
Bronch Left Lower Lobe
03/31/25 12:09 Fungal Culture - Pending
Bronch Right Lower Lobe
03/31/25 12:09 Acid Fast Bacilli Smear - Pending
Bronch Right Lower Lobe Acid Fast Bacilli Culture - Pending
Respiratory Virus Culture - Pending
03/29/25 02:09 MRSA Screen - Final
Nose No Methicillin Resistant Staphylococcus aureus isolated.
03/29/25 02:29 Legionella Urinary Antigen - Final
Urine Negative for Legionella pneumophila Serogroup 1 antigen.
A negative result does not rule out the possiblity of
Legionella infection due to other serogroups or species of
Legionella. Clinical correlation is recommended.
Streptococcus pneumoniae Antigen (M - Final
Negative for Streptococcus pneumoniae antigen.
A negative result does not exclude infection with
Streptococcus pneumoniae. Clinical correlation is
recommended.
03/28/25 22:29 Influenza Types A & B (ALIA) - Final
Nasal Swab Negative for Influenza A & B, NAAT
Negative results must be combined with clinical observations
and patient history.
Nucleic Acid Amplification test (NAAT)performed on the
[employer] platform.
03/27/[address]: Progressive pulmonary parenchymal disease process throughout the right lower lobe, despite interval improvement in previously noted parenchymal disease in the anterior right lower lobe. Faint areas of minor involvement are also
suggested in the posterior segment of the left upper lobe.
[2025-04-01] MEDS: LEVAQUIN 750 MG PO (14:02)
[2025-04-01] MEDS: MINOCIN 100 MG PO ×2 (14:49→22:00)
--- NOTE | 2025-04-01 15:30 | W.PN.PUL3 ---
Today's Communication / Plan
-
Antibiotics adjusted levofloxacin/minocycline until final cultures back.
Discontinue IV Solu-Medrol
Continue nebulizer therapy
Aspiration precautions
Cough suppressionCodeine/Phenergan as needed
Consult ENT-Dr. Henry
Assessment
-
Patient is a 74-year-old male with previous history of lymphoma on Rituxan, lung cancer status post lobectomy, hypertension with recent admission to for atypical pneumonia status post IV antibiotics, discharged 03/07/2025; presenting to ER for
ongoing respiratory complaints and fever of 101.4 [address]. He underwent recent CT scan as an outpatient demonstrating progression of tree-in-bud opacities, he was instructed to go to the ER if he had any new or worsening fevers or complaints.
Recurrent atypical pneumonia in immunocompromised patient on Rituxan.
Chronic cough/sputum production
GNB in sputum, likely pseudomonas
Postnasal drip/sinusitis
Hyponatremia, mild
Hyperglycemia
Conditions present prior to admission:
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
Lung cancer status post lobectomy 2023-.
Hypertension.
Hyperlipidemia.
History of Angelica-Payne syndrome
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
Lichen planus
Diverticulosis
History of torn meniscus of left knee
Chronic constipation
Benzodiazepine dependence
History of COVID-19
CAD
Plan
Respiratory decompensation likely related to bronchitis/pneumonia-patient reports most recent cultures usual respiratory kori
Repeat CT done as outpatient demonstrating more tree-in-bud opacities in the right
Was recently treated for pneumonia with empiric antibiotics discharged 03/07/25
Similar symptoms appear to have returned
-
Bronchoscopy 03/31/2025: Erythema throughout the lower tracheobronchial tree. Thin whitish secretion bilaterally.
Washings sent
BAL of the right lower lobe sent
Sputum culture on admission with Stenotrophomonas maltophilia-infectious disease following. Currently on levofloxacin and minocycline until sensitivities are resulted
Cefepime discontinued
Will wait for final cultures and cytology.
Cell count consistent with infection with significantly increased neutrophils.
Cefepime has been discontinued.
Patient is immunosuppressed. On Rituxan. 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 Scheduled with oncology at [facility] for IVIG next Sunday which I would encourage at [facility].
-
Continue secretion clearance interventions.
Mucolytic's continue
Nebulizers continue-DuoNeb and budesonide
Mucus clearing devices-Acapella.
Incentive spirometry
Vest therapy- continue
discontinue IV Solu-Medrol today 04/01/2025-not bronchospastic on exam.
Speech eval /video barium swallow: Negative for overt aspiration.
On airway inspection patient has significant a upper airway edema, vocal cord erythema .there is no evidence for polyps or masses. Adduction and abduction of vocal cords was normal.
eventual ENT evaluation.
He exhibits some esophageal dysfunction with spasm in the setting of pill esophagitis with known history of GERD and Juarez's esophagus, history of Angelica-Payne tear
CT sinuses 03/03/25-mild sinusitis, left frontal sinus, left anterior ethmoid air cells and right posterior ethmoid air cells which appears new from 2023
Chronic sinusitis was a noted issue from last admission as well
Will consult ENT Dr. Henry to evaluate vocal cords. Continues to be hoarse.
DVT prophylaxis-on Lovenox
GI prophylaxis-on pantoprazole
Continue with aspiration precautions.
Dr. Willingham reviewed with patient 03/31/2025, 04/01/2025 in detail. I did discuss with his who is an oncologist.
I discussed with infectious disease 04/01/2025 regarding positive stenotrophomonas.
Outpatient pulmonary dykjbm-jb-yjns saw Dr. Willingham 01/27/2025 and then Mariam Loco CNP 02/16/2025 and has appointment with Mariam on 04/20/25
We will follow
Diagnostic data:
Chest x-ray 04/13/2023-NAD
Chest x-ray 10/22/2024-NAD
Chest x-ray 12/26/2024-NAD
Chest x-ray 01/28/2025-NAD
Chest x-ray 02/12/2025-NAD
CT chest 03/02/2025-no evidence for pulm embolism, mild bronchial wall thickening and bibasilar opacifications which likely represent multifocal pneumonia
CT Chest 03/27/25- Progressive pulmonary parenchymal disease process throughout the right lower lobe, despite interval improvement in previously noted parenchymal disease in the anterior right lower lobe. Faint areas of minor involvement are also
suggested in the posterior segment of the left upper lobe. Possible considerations include aspiration, infection (airway spread of tuberculosis or nontuberculous mycobacterial infection, fungus), obliterative bronchiolitis.
CT sinus 10/31/23-severe right nasal septal deviation, mild mucosal thickening ethmoid sinuses
Stress echocardiogram 10/31/23-normal stress echocardiogram, EF 55-60% and postexercise 65-70%
ECHO 10/17/22- Normal biventricular size and systolic function without regional wall motion abnormality. Estimated VEF 65-70%. Aortic sclerosis without stenosis. Ectatic proximal ascending aorta: 3.8cm.
Total time spent on this consultation/encounter __41__ minutes which includes review of history, physical exam, medications, laboratory data, personal review of imaging, extensive review of outpatient records, discussion with care team and
respiratory therapy.
Subjective Data
-
Date of Service:
Date of Service: April 01, 2025
Chief Complaint: Pulmonary Follow Up (Pneumonia/immunosuppression)
Review of Systems
General: Fever (n)
Cardiopulmonary: Dyspnea, Dyspnea on Exertion, Cough and Sputum Production
Objective Data
Data Reviewed
Vital Signs / I&O / Oxygen:
Vital Signs
Temp Pulse Resp BP Pulse Ox
98.2 F 74 16 127/85 99
04/01/25 08:00 04/01/25 08:00 04/01/25 08:00 04/01/25 08:00 04/01/25 08:00
Intake and Output
03/31/25 04/01/25 04/02/25
06:59 06:59 06:59
Intake Total 1335 / 1335 1030 / 1030
Balance 1335 / 1335 1030 / 1030
SaO2 99
Physical Exam
General: Comfortable and Other (NAD)
HEENT: Normocephalic, Anicteric and Moist Mucous Membranes
Cardiovascular: S1-S2 and Regular Rhythm
Respiratory: Crackles, Rhonchi and Non-Labored Respirations
GI: Soft, Non Distended and Non Tender
Neurology: Awake, Alert, Oriented and No Motor Deficits
Skin: Warm, Dry and Good Color
Labs/Micro/Reports
Lab Data
04/01/25 06:52
04/01/25 06:52
Microbiology
03/29/25 11:16 Sputum Respiratory Culture - Preliminary
Stenotrophomonas maltophilia
03/29/25 11:16 Sputum Gram Stain - Preliminary
03/31/25 12:10 Bronch Right Lower Lobe Respiratory Culture - Preliminary
Gram negative bacilli
03/31/25 12:10 Bronch Right Lower Lobe Gram Stain - Preliminary
03/31/25 12:10 Bronch Left Lower Lobe Respiratory Culture - Preliminary
Gram negative bacilli
03/31/25 12:10 Bronch Left Lower Lobe Gram Stain - Preliminary
03/29/25 05:30 Blood/Venous Blood Culture - Preliminary
No Growth in 72 hours- Final report to follow
03/28/25 19:48 Blood/Venous Blood Culture - Preliminary
No Growth in 72 hours- Final report to follow
03/29/25 02:09 Nose MRSA Screen - Final
No Methicillin Resistant Staphylococcus aureus isolated.
[2025-04-01 16:50] VITALS: BP 131/91
[2025-04-01] MEDS: LOVENOX 40 MG SC (17:43)
[2025-04-01] MEDS: PHENERGAN WITH CODEINE SYRUP 5 ML PO (19:30)
[2025-04-01] MEDS: LIPITOR 40 MG PO ×2 (22:01→22:04)
[2025-04-01] MEDS: FLOMAX 0.8 MG PO ×2 (22:02→22:04)
[2025-04-01 23:18] VITALS: BP 131/82
[2025-04-02] MEDS: PHENERGAN WITH CODEINE SYRUP 5 ML PO ×3 (00:44→21:21)
[2025-04-02 07:00] VITALS: BP 130/96
[2025-04-02] MEDS: TYLENOL 650 MG PO ×3 (07:31→23:28)
[2025-04-02] MEDS: SINGULAIR 10 MG PO (07:32)
[2025-04-02] MEDS: MUCINEX 600 MG PO ×2 (07:32→21:09)
[2025-04-02] MEDS: MINOCIN 100 MG PO (07:32)
[2025-04-02] MEDS: PROTONIX IV 40 MG IV (07:32)
[2025-04-02] MEDS: VALTREX 500 MG PO (07:32)
[2025-04-02] MEDS: LOW STRENGTH ASPIRIN 81 MG PO (07:32)
[2025-04-02] MEDS: NSS (PRESERVATIVE FREE) 10 ML IV (07:33)
[2025-04-02] MEDS: LEVAQUIN 750 MG PO (07:33)
[2025-04-02] MEDS: MYCELEX TROCHE 10 MG PO ×5 (07:33→21:17)
[2025-04-02] MEDS: CLARITIN 10 MG PO (07:33)
[2025-04-02] MEDS: COLACE 100 MG PO ×2 (07:33→21:09)
[2025-04-02] MEDS: PULMICORT 0.5 MG INH ×2 (07:46→19:59)
[2025-04-02] MEDS: DUONEB 3 ML INH ×4 (07:47→19:59)
[2025-04-02 08:24] LABS: Hematocrit 30.6 % (39.0-52.0); Hemoglobin 10.0 g/dL (13.0-18.0); Mean Corp Hgb Conc. 32.7 g/dL (33.0-37.0); Mean Corpuscular Volume 85.0 fL (80.0-94.0); Platelet Count 249 10^3/uL (130-400); Red Cell Dist. Width 15.1 % (11.5-14.5)
[2025-04-02 09:02] LABS: Blood Urea Nitrogen 22 mg/dl (9-20); Calcium 9.8 mg/dl (8.4-10.2); Carbon Dioxide 29 mmol/L (22-30); Chloride 105 mmol/L (98-107); Estimated Creatinine Clearance 58 ml/min; Glucose 81 mg/dl (70-99); Magnesium 2.0 mg/dl (1.6-2.3); Potassium 4.0 mmol/L (3.5-5.1); Sodium 140 mmol/L (135-145); eGFR > 60.00
[2025-04-02 09:12] LABS: Absolute Neutrophils -Man Diff 7.0 10^3/uL (1.4-6.5); Platelets Checked Yes
[2025-04-02 09:13] LABS: Normal RBC Morphology Yes; Total Cells Counted 100
--- NOTE | 2025-04-02 10:14 | W.PN.HOSP.TC ---
Today's Communication/Plan
-
see A/P
Assessment / Plan
Assessment / Plan
A/P:
# Multifocal pneumonia (did not meet sepsis criteria on admission)
# Persistent multifocal pneumonia with possible acute on chronic disease
CT Chest: Progressive pulmonary parenchymal disease process throughout the right lower lobe. Possible considerations include aspiration, infection (airway spread of tuberculosis or nontuberculous mycobacterial infection, fungus), obliterative
bronchiolitis.
s/p bronch 03/31: Whitish secretion found throughout the tracheobronchial tree bilaterally, washing sent. BAL of the right lower lobe was sent for bacterial, fungal, viral, cell count and cytology.
sputum culture and BAL culture growing Stenotrophomonas maltophilia
Abx changed to minocycline 100mg po bid and levofloxacin 750mg po daily, DCed cefepime.
ID on board to direct Abx
s/p VSE 04/01, cleared for solid diet
Off steroid solumedrol
cont nebs, IS, acapella
Appreciate Pulm and ID input
ENT CS for dysphonia and chronic cough
# Subjective urinary retention
check bladder scan
# Essential Hypertension
Holding chlorthalidone, amlodipine, and losartan
BP stable currently off med
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
# GERD - PPI
# HLD - statin
DVT prophylaxis�Lovenox subc
CODE STATUS�full code
DW ID
total time 51 min
Anticipated Discharge: Within 24 hours
Subjective/Interval History
-
Date of Service: April 02, 2025
Objective Data
-
Labs:
Laboratory Results
04/02/25
06:33
WBC 10.1
Hgb 10.0 L
Hct 30.6 L
Plt Count 249
Sodium 140
Potassium 4.0
Chloride 105
Carbon Dioxide 29
BUN 22 H
Creatinine 0.9
Glucose 81
Calcium 9.8
Vital Signs:
Vital Signs
Temp Pulse Resp BP Pulse Ox
36.7 C 77 18 130/96 95
04/02/25 07:00 04/02/25 07:51 04/02/25 07:51 04/02/25 07:00 04/02/25 07:51
I&O
04/01/25 04/02/25 04/03/25
06:59 06:59 06:59
Intake Total 1030 / 1030 120 / 120
Output Total 800 / 800
Balance 1030 / 1030 -680 / -680
Review of Systems
-
All other systems: Reviewed and negative
Respiratory: Denies Cough (intermittent and mch resolved )
Physical Exam
-
General: Well Developed, Well Nourished, No Apparent Distress, Comfortable and Conversant (speak in full sentences)
HEENT: Normocephalic and Atraumatic; Negative Oxygen
Respiratory: Non Labored Respirations; Negative Accessory Resp Muscle Use
Cardiac: Regular Rhythm and S1/S2; Negative Murmur
GI: Soft, Nontender, Nondistended and Normal Bowel Sounds
Musculoskeletal: No Clubbing, No Cyanosis and No Edema
Neuro: Awake and Alert
Psych: Calm and Intact Judgement/Insight
Data Reviewed
-
CT Scan: Report Reviewed by me
Labs: Labs Reviewed by me
--- NOTE | 2025-04-02 11:05 | W.PN.PUL3 ---
Today's Communication / Plan
-
Continue current antibiotics
Continue secretion clearance intervention
ENT evaluation today
Will keep off IV corticosteroids
Aspiration precautions
Physical therapy/Occupational Therapy as tolerated
Will follow
Hopefully if patient improved and final cultures resulted he can be discharged in the next 24 to 48 hours.
Assessment
-
Patient is a 74-year-old male with previous history of lymphoma on Rituxan, lung cancer status post lobectomy, hypertension with recent admission to for atypical pneumonia status post IV antibiotics, discharged 03/07/2025; presenting to ER for
ongoing respiratory complaints and fever of 101.4 Fahrenheit. He underwent recent CT scan as an outpatient demonstrating progression of tree-in-bud opacities, he was instructed to go to the ER if he had any new or worsening fevers or complaints.
Recurrent atypical pneumonia in immunocompromised patient on Rituxan.
Chronic cough/sputum production
GNB in sputum, likely pseudomonas
Postnasal drip/sinusitis
Hyponatremia, mild
Hyperglycemia
Conditions present prior to admission:
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
Lung cancer status post lobectomy 2023-.
Hypertension.
Hyperlipidemia.
History of Angelica-Payne syndrome
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
Lichen planus
Diverticulosis
History of torn meniscus of left knee
Chronic constipation
Benzodiazepine dependence
History of COVID-19
CAD
Plan
Respiratory decompensation likely related to bronchitis/pneumonia-patient reports most recent cultures usual respiratory kori
Repeat CT done as outpatient demonstrating more tree-in-bud opacities in the right
Was recently treated for pneumonia with empiric antibiotics discharged 03/07/25 -but symptoms persisted. At that time cultures were negative.
-
Bronchoscopy 03/31/2025: Erythema throughout the lower tracheobronchial tree. Thin whitish secretion bilaterally.
Washings sent
BAL of the right lower lobe sent
Sputum culture on admission with Stenotrophomonas maltophilia-infectious disease following.
Currently on levofloxacin and minocycline until sensitivities are resulted-will defer to infectious disease.
First specimen sensitive to TMP sulfa and levofloxacin.
Cefepime discontinued
Cytology: Negative for pneumocystis or fungal organisms. Negative for malignancy. Neutrophilic cell count consistent with infection.
AFB pending
Fungal culture pending
Cell count consistent with infection with significantly increased neutrophils.
Patient is immunosuppressed. On Rituxan. 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 Scheduled with oncology at [facility] for IVIG next Sunday which I would encourage at [facility].
-
Continue secretion clearance interventions.
Mucolytic's continue
Nebulizers continue-DuoNeb and budesonide
Mucus clearing devices-Acapella.
Incentive spirometry
Vest therapy- continue
discontinue IV Solu-Medrol today 04/01/2025-not bronchospastic on exam.
Speech eval /video barium swallow: Negative for overt aspiration.
On airway inspection patient has significant a upper airway edema, vocal cord erythema .there is no evidence for polyps or masses. Adduction and abduction of vocal cords was normal.
eventual ENT evaluation.
He exhibits some esophageal dysfunction with spasm in the setting of pill esophagitis with known history of GERD and Juarez's esophagus, history of Angelica-Payne tear
CT sinuses 03/03/25-mild sinusitis, left frontal sinus, left anterior ethmoid air cells and right posterior ethmoid air cells which appears new from 2023
Chronic sinusitis was a noted issue from last admission as well
ENT consulted- Consult placed per primary team-agree.
Voice continues to be hoarse: Suspect due to ongoing cough and inflammation due to infection.
Right upper quadrant ultrasound to be obtained per primary team due to right upper quadrant discomfort.
Tolerating food
Denies nausea or vomiting
No peritoneal signs on exam
DVT prophylaxis-on Lovenox
GI prophylaxis-on pantoprazole
Continue with aspiration precautions.
Dr. Willingham reviewed with patient 03/31/2025, 04/01/2025, 04/02/2025 in detail. I did discuss with his who is an oncologist.
I discussed with infectious disease 04/01/2025 regarding positive stenotrophomonas.
Outpatient pulmonary vyqgbi-hy-ewdv saw Dr. Willingham 01/27/2025 and then Mariam Loco CNP 02/16/2025 and has appointment with Mariam on 04/20/25
We will follow
Diagnostic data:
Chest x-ray 04/13/2023-NAD
Chest x-ray 10/22/2024-NAD
Chest x-ray 12/26/2024-NAD
Chest x-ray 01/28/2025-NAD
Chest x-ray 02/12/2025-NAD
CT chest 03/02/2025-no evidence for pulm embolism, mild bronchial wall thickening and bibasilar opacifications which likely represent multifocal pneumonia
CT Chest 03/27/25- Progressive pulmonary parenchymal disease process throughout the right lower lobe, despite interval improvement in previously noted parenchymal disease in the anterior right lower lobe. Faint areas of minor involvement are also
suggested in the posterior segment of the left upper lobe. Possible considerations include aspiration, infection (airway spread of tuberculosis or nontuberculous mycobacterial infection, fungus), obliterative bronchiolitis.
CT sinus 10/31/23-severe right nasal septal deviation, mild mucosal thickening ethmoid sinuses
Stress echocardiogram 10/31/23-normal stress echocardiogram, EF 55-60% and postexercise 65-70%
ECHO 10/17/22- Normal biventricular size and systolic function without regional wall motion abnormality. Estimated VEF 65-70%. Aortic sclerosis without stenosis. Ectatic proximal ascending aorta: 3.8cm.
Total time spent on this consultation/encounter __40__ minutes which includes review of history, physical exam, medications, laboratory data, personal review of imaging, extensive review of outpatient records, discussion with care team and
respiratory therapy.
Subjective Data
-
Date of Service:
Date of Service: April 02, 2025
Chief Complaint: Pulmonary Follow Up (Pneumonia/immunosuppression)
Review of Systems
General: Fever (n)
Cardiopulmonary: Dyspnea (none at rest)
GI: Abdominal Pain (n) and Nausea (n)
Objective Data
Data Reviewed
Vital Signs / I&O / Oxygen:
Vital Signs
Temp Pulse Resp BP Pulse Ox
98.1 F 77 18 130/96 95
04/02/25 07:00 04/02/25 07:51 04/02/25 07:51 04/02/25 07:00 04/02/25 07:51
Intake and Output
04/01/25 04/02/25 04/03/25
06:59 06:59 06:59
Intake Total 1030 / 1030 120 / 120
Output Total 800 / 800
Balance 1030 / 1030 -680 / -680
SaO2 95
Physical Exam
General: Comfortable and Other (NAD)
HEENT: Normocephalic, Anicteric and Moist Mucous Membranes
Cardiovascular: S1-S2 and Regular Rhythm
Respiratory: Crackles, Rhonchi and Non-Labored Respirations
GI: Soft, Non Distended and Tender (Mild right upper quadrant, no peritoneal signs)
Neurology: Awake, Alert, Oriented and No Motor Deficits
Skin: Warm, Dry and Good Color
Labs/Micro/Reports
Lab Data
04/02/25 06:33
04/02/25 06:33
Microbiology
03/31/25 12:10 Bronch Right Lower Lobe Respiratory Culture - Final
Stenotrophomonas maltophilia
03/31/25 12:10 Bronch Right Lower Lobe Gram Stain - Final
03/31/25 12:10 Bronch Left Lower Lobe Respiratory Culture - Final
Stenotrophomonas maltophilia
03/31/25 12:10 Bronch Left Lower Lobe Gram Stain - Final
03/29/25 11:16 Sputum Respiratory Culture - Final
Stenotrophomonas maltophilia
03/29/25 11:16 Sputum Gram Stain - Final
03/29/25 05:30 Blood/Venous Blood Culture - Preliminary
No Growth in 4 days- Final report to follow
03/28/25 19:48 Blood/Venous Blood Culture - Preliminary
No Growth in 4 days- Final report to follow
03/29/25 02:09 Nose MRSA Screen - Final
No Methicillin Resistant Staphylococcus aureus isolated.
--- NOTE | 2025-04-02 11:45 | W.PN.ID1 ---
Date of Service
Date of Service: April 02, 2025
Today's Communication
Continue levofloxacin 750mg po daily (d2) through 04/14/25.
Assessment / Plan
#Recurrent multifocal pneumonia
# Leukocytosis, on steroid
# Fever at home; afebrile in hospital
# MALT lymphoma completed Rituxan in 08/2024
# hx lung CA s/p right upper lobectomy
Plan:
- Passed VSE study
- Admission sputum Stenotrophomonas sensitive to T/Sulfa and levofloxacin. Spoke to [facility], unable to test for minocycline susceptibility in our lab.
- 03/31 Status post bronchoscopy. BAL cultures x 2: Stenotrophomonas
- DC minocycline 100mg po bid and
- Continue levofloxacin 750mg po daily (d2) through 04/14/25.
- ABD US for RUQ discomfort
- Bladder scan for c/o nocturia, per hospitalist.
Chief Complaint
-: Pneumonia
Subjective / Review of Systems
Complaints: nocturia past 2 nights. 'pus'drainage from left eye. Right upper abdominal swelling/discomfort. BARRETO this am.
Vital Signs / Physical Exam
Vital Signs
Vital Signs
Temp Pulse Resp BP Pulse Ox
98.1 F 70 18 130/96 95
04/02/25 07:00 04/02/25 11:40 04/02/25 11:40 04/02/25 07:00 04/02/25 11:40
Physical Exam
Constitutional: No Acute Distress and Comfortable
Eyes: No Conjunctival Hemorrhage and Sclera Anicteric; Negative Erythema or Ocular Discharge
Cardiovascular: Regular Rate and S1/S2
Pulmonary: Coarse
Gastrointestinal: Soft, Tender (RUQ discomfort), Non Distended and Normal Bowel Sounds
Genito-Urinary: Negative CVA Tenderness
Extremities: Negative Edema
Neurological: AO x 3
Objective Data
Lab Data
Lab Results
04/02/25 06:33
04/02/25 06:33
Estimated Creat Clear 58 ml/min 04/02/25 06:33
Lactic Acid Cancelled 03/28/25 23:45
Total Bilirubin 0.8 mg/dl (0.2-1.3) 03/28/25 19:48
AST 19 U/L (17-59) 03/28/25 19:48
ALT 22 U/L (0-50) 03/28/25 19:48
Alkaline Phosphatase 70 U/L (38-126) 03/28/25 19:48
Most recent labs reviewed.
Micro Results:
03/31/25 12:10 Respiratory Culture - Final
Bronch Right Lower Lobe Stenotrophomonas maltophilia
Gram Stain - Final
03/31/25 12:10 Respiratory Culture - Final
Bronch Left Lower Lobe Stenotrophomonas maltophilia
Gram Stain - Final
03/29/25 11:16 Respiratory Culture - Final
Sputum Stenotrophomonas maltophilia
Gram Stain - Final
03/29/25 05:30 Blood Culture - Preliminary
Blood/Venous No Growth in 4 days- Final report to follow
03/28/25 19:48 Blood Culture - Preliminary
Blood/Venous No Growth in 4 days- Final report to follow
03/31/25 12:09 Acid Fast Bacilli Smear - Pending
Bronch Left Lower Lobe Acid Fast Bacilli Culture - Pending
03/31/25 12:09 Fungal Culture - Pending
Bronch Left Lower Lobe
03/31/25 12:09 Fungal Culture - Pending
Bronch Right Lower Lobe
03/31/25 12:09 Acid Fast Bacilli Smear - Pending
Bronch Right Lower Lobe Acid Fast Bacilli Culture - Pending
Respiratory Virus Culture - Pending
03/29/25 02:09 MRSA Screen - Final
Nose No Methicillin Resistant Staphylococcus aureus isolated.
03/29/25 02:29 Legionella Urinary Antigen - Final
Urine Negative for Legionella pneumophila Serogroup 1 antigen.
A negative result does not rule out the possiblity of
Legionella infection due to other serogroups or species of
Legionella. Clinical correlation is recommended.
Streptococcus pneumoniae Antigen (M - Final
Negative for Streptococcus pneumoniae antigen.
A negative result does not exclude infection with
Streptococcus pneumoniae. Clinical correlation is
recommended.
03/28/25 22:29 Influenza Types A & B (ALIA) - Final
Nasal Swab Negative for Influenza A & B, NAAT
Negative results must be combined with clinical observations
and patient history.
Nucleic Acid Amplification test (NAAT)performed on the
[employer] platform.
03/27/[address]: Progressive pulmonary parenchymal disease process throughout the right lower lobe, despite interval improvement in previously noted parenchymal disease in the anterior right lower lobe. Faint areas of minor involvement are also
suggested in the posterior segment of the left upper lobe.
Care Review
Plan reviewed with: Physician (Dr. Peterson)
--- NOTE | 2025-04-02 11:55 | W.PN.ENT ---
Today's Communication
-
as above
Impression / Plan
-
There is no evidence of vocal cord nodule, infection, paralysis or erythema.
Hoarseness and cough likely due to pneumonia as opposed to any laryngeal disease per se.
Subjective Data
-
Consult requested for hoarseness and cough in the setting of pneumonia.
Full consult dictated.
Objective Data
-
Vital Signs
Temp Pulse Resp BP Pulse Ox
98.1 F 70 18 130/96 95
04/02/25 07:00 04/02/25 11:40 04/02/25 11:40 04/02/25 07:00 04/02/25 11:40
Intake & Output
04/01/25 04/02/25 04/03/25
06:59 06:59 06:59
Intake:
Oral fluids 1020 / 1020 120 / 120
IV piggybacks
Output:
Urine, Voided 800 / 800
Other:
Number of approximated MODERATE 4
amounts of urine
Lab Results
04/02/25 06:33
04/02/25 06:33
Calcium 9.8 mg/dl (8.4-10.2) 04/02/25 06:33
Magnesium 2.0 mg/dl (1.6-2.3) 04/02/25 06:33
Total Bilirubin 0.8 mg/dl (0.2-1.3) 03/28/25 19:48
AST 19 U/L (17-59) 03/28/25 19:48
ALT 22 U/L (0-50) 03/28/25 19:48
Alkaline Phosphatase 70 U/L (38-126) 03/28/25 19:48
Physical Exam
-
Laryngoscopy performed at bedside is essentially normal
--- NOTE | 2025-04-02 14:06 | PN.CDI ---
CDI
- -
CDI:
Physician Documentation Request
Admit Date: 03/29/25 00:37
Dear Doctor Kristen,
Please review the following and provide your response in the progress notes.
Clinical Indicators:
Pt admitted with Persistent multifocal pneumonia with possible acute on chronic disease.
04/02 Progress Note: '..s/p bronch 03/31: Whitish secretion found throughout the tracheobronchial tree bilaterally, washing sent. BAL of the right lower lobe was sent for bacterial, fungal, viral, cell count and cytology.
sputum culture and BAL culture growing Stenotrophomonas maltophilia
Abx changed to minocycline 100mg po bid and levofloxacin 750mg po daily, DCed cefepime...'
Based on the above, could you clarify in the Progress Notes further specificity regarding the known, suspected or likely type of pneumonia you are treating (recognizing the specific organism may not be known)?
Examples
Gram negative Pneumonia - indicate if Stenotrophomonas maltophilia, Pseudomonas, Klebsiella or other
Other organism - specify known or suspected type
Other type
Use of terms such as suspected, likely, concern for, or probable (associated with a specific diagnosis that is being evaluated, monitored, or treated as if it exists) are acceptable and can be coded in the inpatient setting, when documented at the
time of discharge.
Thank you,
Mague Betancourt RN,BSN
CDI Specialist
[place] [employer]
Please use your independent medical judgment in providing your response.
[2025-04-02 15:00] VITALS: BP 126/82
--- NOTE | 2025-04-02 15:25 | CM ---
CM reviewed chart, ENT consulted. Pulmonary following. No PT needs. CM will continue to follow for all discharge planning needs.
Plan; home with
[2025-04-02] MEDS: LOVENOX 40 MG SC (17:06)
[2025-04-02] MEDS: FLOMAX 0.8 MG PO (21:14)
[2025-04-02] MEDS: LIPITOR 40 MG PO (21:14)
[2025-04-02 23:00] VITALS: BP 121/75
[2025-04-03] MEDS: DUONEB 3 ML INH ×2 (07:19→11:18)
[2025-04-03] MEDS: PULMICORT 0.5 MG INH (07:20)
[2025-04-03 08:17] VITALS: BP 125/89
[2025-04-03 08:35] LABS: Hematocrit 33.7 % (39.0-52.0); Hemoglobin 11.1 g/dL (13.0-18.0); Mean Corp Hgb Conc. 32.9 g/dL (33.0-37.0); Mean Corpuscular Volume 84.0 fL (80.0-94.0); Platelet Count 258 10^3/uL (130-400); Red Cell Dist. Width 15.3 % (11.5-14.5)
[2025-04-03 08:57] LABS: Blood Urea Nitrogen 27 mg/dl (9-20); Calcium 9.5 mg/dl (8.4-10.2); Carbon Dioxide 30 mmol/L (22-30); Chloride 104 mmol/L (98-107); Estimated Creatinine Clearance 53 ml/min; Glucose 81 mg/dl (70-99); Magnesium 2.0 mg/dl (1.6-2.3); Potassium 4.3 mmol/L (3.5-5.1); Sodium 138 mmol/L (135-145); eGFR > 60.00
--- NOTE | 2025-04-03 09:22 | W.PN.HOSP.TC ---
Addendum entered and electronically signed by Bhargavi Peterson MD 04/03/25 11:26:
# Gram negative Pneumonia
Original Note:
Today's Communication/Plan
-
follow Abd US report, if unrevealing, pt can be discharged
Abx per ID
Assessment / Plan
Assessment / Plan
A/P:
# Multifocal pneumonia (did not meet sepsis criteria on admission)
# Persistent multifocal pneumonia with possible acute on chronic disease
CT Chest: Progressive pulmonary parenchymal disease process throughout the right lower lobe. Possible considerations include aspiration, infection (airway spread of tuberculosis or nontuberculous mycobacterial infection, fungus), obliterative
bronchiolitis.
s/p bronch 03/31: Whitish secretion found throughout the tracheobronchial tree bilaterally, washing sent. BAL of the right lower lobe was sent for bacterial, fungal, viral, cell count and cytology.
sputum culture and BAL culture growing Stenotrophomonas maltophilia
Abx changed levofloxacin 750mg po daily, DCed cefepime, DCed minocycline.
ID on board to direct Abx
s/p VSE 04/01, cleared for solid diet
Off steroid solumedrol
cont nebs, IS, acapella
Appreciate Pulm and ID input
Appreciate ENT eval, no evidence of vocal cord nodule, infection, paralysis or erythema. Hoarseness and cough likely due to pneumonia as opposed to any laryngeal disease
# Subjective urinary retention
bladder scan
# RUQ vs R lower chest wall discomfort, at site of previous lobectomy
LFT WNL
Check Abd US
# Essential Hypertension
Holding chlorthalidone, amlodipine, and losartan
BP stable currently off med
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
# GERD - PPI
# HLD - statin
DVT prophylaxis�Lovenox subc
CODE STATUS�full code
Anticipated Discharge: Within 24 hours
Subjective/Interval History
-
Date of Service: April 03, 2025
Objective Data
-
Labs:
Laboratory Results
04/03/25
07:55
WBC 10.0
Hgb 11.1 L
Hct 33.7 L
Plt Count 258
Sodium 138
Potassium 4.3
Chloride 104
Carbon Dioxide 30
BUN 27 H
Creatinine 1.0
Glucose 81
Calcium 9.5
Vital Signs:
Vital Signs
Temp Pulse Resp BP Pulse Ox
36.8 C 73 16 125/89 96
04/03/25 08:17 04/03/25 08:17 04/03/25 08:17 04/03/25 08:17 04/03/25 08:17
I&O
04/02/25 04/03/25 04/04/25
06:59 06:59 06:59
Intake Total 1020 / 1020
Output Total 800 / 800
Balance 220 / 220
Review of Systems
-
All other systems: Reviewed and negative
Respiratory: Denies Cough (intermittent and much resolved )
Abdomen/GI: Reports Other (RUQ/R chest area discomfort at previous lobectomy site)
Physical Exam
-
General: Well Developed, Well Nourished, No Apparent Distress, Comfortable and Conversant (speak in full sentences)
HEENT: Normocephalic and Atraumatic; Negative Oxygen
Respiratory: Non Labored Respirations; Negative Accessory Resp Muscle Use
Cardiac: Regular Rhythm and S1/S2; Negative Murmur
GI: Soft, Nontender, Nondistended and Normal Bowel Sounds
Musculoskeletal: No Clubbing, No Cyanosis and No Edema
Neuro: Awake and Alert
Psych: Calm and Intact Judgement/Insight
Data Reviewed
-
CT Scan: Report Reviewed by me
Labs: Labs Reviewed by me
[2025-04-03] MEDS: SINGULAIR 10 MG PO (10:03)
[2025-04-03] MEDS: MUCINEX 600 MG PO (10:03)
[2025-04-03] MEDS: VALTREX 500 MG PO (10:03)
[2025-04-03] MEDS: LOW STRENGTH ASPIRIN 81 MG PO (10:03)
[2025-04-03] MEDS: NSS (PRESERVATIVE FREE) 10 ML IV (10:04)
[2025-04-03] MEDS: LEVAQUIN 750 MG PO (10:05)
[2025-04-03] MEDS: MYCELEX TROCHE 10 MG PO ×2 (10:05→11:14)
[2025-04-03] MEDS: CLARITIN 10 MG PO (10:05)
[2025-04-03] MEDS: COLACE 100 MG PO (10:05)
[2025-04-03] MEDS: PROTONIX IV 40 MG IV (10:06)
--- NOTE | 2025-04-03 10:31 | W.PN.ID1 ---
Date of Service
Date of Service: April 03, 2025
Today's Communication
Can dc home on minocycline 100mg po bid and levofloxacin 750mg po daily x 2 weeks through 04/14/25.
Assessment / Plan
#Recurrent multifocal pneumonia
# Leukocytosis, on steroid
# Fever at home; afebrile in hospital
# MALT lymphoma completed Rituxan in 08/2024
# hx lung CA s/p right upper lobectomy
Plan:
- Abd US: unremarkable
- Passed VSE study
- Admission sputum Stenotrophomonas sensitive to T/Sulfa and levofloxacin. Spoke to [facility], unable to test for minocycline susceptibility in our lab.
- 03/31 Status post bronchoscopy. BAL cultures x 2: Stenotrophomonas
- Due immunosuppressive status, double cover with minocycline 100mg po bid and levofloxacin 750mg po daily x 2 weeks through 04/14/25.
Chief Complaint
-: Pneumonia
Subjective / Review of Systems
He states cough/sputum a little worse today but ready to go home.
Nocturia not as bad last night.
Vital Signs / Physical Exam
Vital Signs
Vital Signs
Temp Pulse Resp BP Pulse Ox
98.2 F 73 16 125/89 96
04/03/25 08:17 04/03/25 08:17 04/03/25 08:17 04/03/25 08:17 04/03/25 08:17
Physical Exam
Constitutional: No Acute Distress
Eyes: No Conjunctival Hemorrhage and Sclera Anicteric; Negative Erythema or Ocular Discharge
Cardiovascular: Regular Rate and S1/S2
Pulmonary: Coarse
Gastrointestinal: Soft, Non Distended and Normal Bowel Sounds
Genito-Urinary: Negative CVA Tenderness
Extremities: Negative Edema
Neurological: AO x 3
Objective Data
Lab Data
Lab Results
04/03/25 07:55
04/03/25 07:55
Estimated Creat Clear 53 ml/min 04/03/25 07:55
Lactic Acid Cancelled 03/28/25 23:45
Total Bilirubin 0.8 mg/dl (0.2-1.3) 03/28/25 19:48
AST 19 U/L (17-59) 03/28/25 19:48
ALT 22 U/L (0-50) 03/28/25 19:48
Alkaline Phosphatase 70 U/L (38-126) 03/28/25 19:48
Most recent labs reviewed.
Micro Results:
03/31/25 12:09 Acid Fast Bacilli Smear - Preliminary
Bronch Left Lower Lobe Acid Fast Bacilli Culture - Preliminary
03/31/25 12:09 Acid Fast Bacilli Smear - Preliminary
Bronch Right Lower Lobe Acid Fast Bacilli Culture - Preliminary
Respiratory Virus Culture - Pending
03/29/25 05:30 Blood Culture - Final
Blood/Venous No Growth - Final Report
03/28/25 19:48 Blood Culture - Final
Blood/Venous No Growth - Final Report
03/31/25 12:10 Respiratory Culture - Final
Bronch Right Lower Lobe Stenotrophomonas maltophilia
Gram Stain - Final
03/31/25 12:10 Respiratory Culture - Final
Bronch Left Lower Lobe Stenotrophomonas maltophilia
Gram Stain - Final
03/29/25 11:16 Respiratory Culture - Final
Sputum Stenotrophomonas maltophilia
Gram Stain - Final
03/31/25 12:09 Fungal Culture - Pending
Bronch Left Lower Lobe
03/31/25 12:09 Fungal Culture - Pending
Bronch Right Lower Lobe
03/29/25 02:09 MRSA Screen - Final
Nose No Methicillin Resistant Staphylococcus aureus isolated.
03/29/25 02:29 Legionella Urinary Antigen - Final
Urine Negative for Legionella pneumophila Serogroup 1 antigen.
A negative result does not rule out the possiblity of
Legionella infection due to other serogroups or species of
Legionella. Clinical correlation is recommended.
Streptococcus pneumoniae Antigen (M - Final
Negative for Streptococcus pneumoniae antigen.
A negative result does not exclude infection with
Streptococcus pneumoniae. Clinical correlation is
recommended.
03/28/25 22:29 Influenza Types A & B (ALIA) - Final
Nasal Swab Negative for Influenza A & B, NAAT
Negative results must be combined with clinical observations
and patient history.
Nucleic Acid Amplification test (NAAT)performed on the
[employer] platform.
03/27/[address]: Progressive pulmonary parenchymal disease process throughout the right lower lobe, despite interval improvement in previously noted parenchymal disease in the anterior right lower lobe. Faint areas of minor involvement are also
suggested in the posterior segment of the left upper lobe.
Care Review
Plan reviewed with: Physician (Dr. Peterson)
[2025-04-03] MEDS: MINOCIN 100 MG PO (11:13)
[2025-04-03 11:16] LABS: Absolute Neutrophils -Man Diff 6.5 10^3/uL (1.4-6.5)
[2025-04-03 11:17] LABS: Normal RBC Morphology Yes; Platelets Checked Yes; Total Cells Counted 100
--- NOTE | 2025-04-03 12:46 | W.DCSUMMARY ---
Discharge Summary
Discharge Data
Date of Admission: 03/29/25
Date of Discharge: 04/03/25
Total time spent discharging patient (in min): 40
-
Pending Results: No
Hospital Course
Principal Diagnosis:
Persistent multifocal pneumonia with Stenotrophomonas maltophilia
Chronic Diagnoses:�
Essential Hypertension, [employer] chlorthalidone, amlodipine, and losartan stopped this admission. BP stable off med.
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
GERD
HLD
lung cancer status post lobectomy 2023
Consultations:�
ENT
Infectious disease
Pulmonology
Procedures:�
Bronchoscopy 03/31/2025, largely unrevealing, noted whitish secretion found throughout the tracheobronchial tree bilaterally, washing sent.
Clinical course:�
This is a 74-year-old male, with past medical history as stated above, who presented with persistent cough and fever.
Problem 1:
Persistent multifocal pneumonia.
His CT chest noted progressive pulmonary parenchymal disease process throughout the right lower lobe.
He underwent bronchoscopy 03/31: which was largely unrevealing, noted whitish secretion found throughout the tracheobronchial tree bilaterally, washing sent.
His sputum culture and BAL culture grew Stenotrophomonas maltophilia.
He was discharged with antibiotics minocycline 100mg po bid and levofloxacin 750mg po daily x 2 weeks through 04/14/25 per ID.
Of note, he underwent VSE 04/01, and was cleared for solid diet.
He was on steroid while in the hospital which was stopped prior to discharge.
He was seen by ENT, with evaluation that showed no evidence of vocal cord nodule, infection, paralysis or erythema.
He has been taken off blood pressure medications this admission, and his BP has been stable.
As for the rest of his medical problems, they were stable during his hospital stay.
Discharge Plan
-
Patient Disposition: Home (Routine Discharge)
Discharge Diagnosis/Procedures: Multifocal pneumonia status post bronch, BAL culture growing Stenotrophomonas maltophilia
Condition: Fair
Diet: As tolerated
Activity: As tolerated
Driving Restrictions: As prior to admission
Activity Restrictions/Additional Instructions:
If you are taking antacid, iron, zinc, or Carafate, take these products 6 hours before or 2 hours after levofloxacin.
Referrals:
Barry Pace I., [Family Provider, Internal Medicine] - in less than 1 week
Additional Discharge Medication Instructions: Continue minocycline 100 mg twice daily and levofloxacin 750 mg daily x 2 weeks through 04/14/25.
Stop further chlorthalidone, amlodipine, and losartan as your blood pressure has been stable without medications.
Prescriptions:
New
levofloxacin 750 mg Tablet
750 mg PO DAILY 14 Days Qty: 14 0RF
minocycline 50 mg Capsule
100 mg PO Q12 14 Days Qty: 56 0RF
Continued
valacyclovir 500 MG tablet
500 mg PO DAILY
tamsulosin [Flomax] 0.4 mg Capsule
0.8 mg PO HS
Xiidra 5 % Dropperette
1 drp OPHTHALMIC (EYE) BID
atorvastatin 40 mg Tablet
40 mg PO HS
montelukast 10 mg Tablet
10 mg PO DAILY
aspirin 81 mg Tablet
81 mg PO DAILY
loratadine 10 mg Tablet
10 mg PO DAILY
cholecalciferol (vitamin D3) [Vitamin D3] 25 mcg (1,000 unit) Tablet
25 mcg PO DAILY
pantoprazole 40 MG tablet,delayed release (DR/EC)
40 mg PO 1XD
Xiidra 5 % Dropperette
1 drp OPHTHALMIC (EYE) BID
clotrimazole 10 mg Dolores
10 mg PO 5/D Qty: 20 0RF
budesonide 0.5 mg/2 mL Suspension For Nebulization
0.5 mg inhalation R BID Qty: 60 0RF
Discontinued
losartan 50 mg Tablet
50 mg PO DAILY
amlodipine 2.5 mg Tablet
2.5 mg PO DAILY
chlorthalidone 25 mg Tablet
12.5 mg PO DAILY Qty: 30 0RF
prednisone 20 mg Tablet
40 mg PO DAILY Qty: 30 0RF
Rx Instructions:
Take 40 mg/day for 4 days; then 30 mg/day for 4 days; then 20 mg/day for 4 days; then 10 mg/day for 4 days
doxycycline hyclate 100 mg Capsule
100 mg PO Q12 Qty: 20 0RF
Discharge Orders:
Discharge Patient (As Directed); Ordered 04/03/25
Ordered By: Bhargavi Peterson
Discharge Date and Time
Print Language: POLISH
--- NOTE | 2025-04-03 13:07 | W.PN.PUL3 ---
Today's Communication / Plan
-
Discharge planning on antibiotic
Continue nebulizer therapy for now
Antitussives
Will follow extended cultures
Patient to get IVIG next Sunday at [facility]
He will call me back with any change in symptoms
Sign off
Assessment
-
Patient is a 74-year-old male with previous history of lymphoma on Rituxan, lung cancer status post lobectomy, hypertension with recent admission to for atypical pneumonia status post IV antibiotics, discharged 03/07/2025; presenting to ER for
ongoing respiratory complaints and fever of 101.[address] He underwent recent CT scan as an outpatient demonstrating progression of tree-in-bud opacities, he was instructed to go to the ER if he had any new or worsening fevers or complaints.
Recurrent atypical pneumonia in immunocompromised patient on Rituxan.
Chronic cough/sputum production
GNB in sputum, likely pseudomonas
Postnasal drip/sinusitis
Hyponatremia, mild
Hyperglycemia
Conditions present prior to admission:
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
Lung cancer status post lobectomy 2023-[facility].
Hypertension.
Hyperlipidemia.
History of Angelica-Payne syndrome
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
Lichen planus
Diverticulosis
History of torn meniscus of left knee
Chronic constipation
Benzodiazepine dependence
History of COVID-19
CAD
Plan
Respiratory decompensation likely related to bronchitis/pneumonia-patient reports most recent cultures usual respiratory kori
Repeat CT done as outpatient demonstrating more tree-in-bud opacities in the right
Was recently treated for pneumonia with empiric antibiotics discharged 03/07/25 -but symptoms persisted. At that time cultures were negative.
-
Bronchoscopy 03/31/2025: Erythema throughout the lower tracheobronchial tree. Thin whitish secretion bilaterally.
BAL and washings with stenotrophomonas maltophilia's-sensitive to Levaquin and Bactrim.
Infectious disease recommended: Minocycline and Levaquin for 2 weeks. Through 04/14/2025.
-
Cefepime discontinued
Cytology: Negative for pneumocystis or fungal organisms. Negative for malignancy. Neutrophilic cell count consistent with infection.
AFB pending
Fungal culture pending
Cell count consistent with infection with significantly increased neutrophils.
-
Patient is immunosuppressed. On Rituxan. 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 Scheduled with oncology at [facility] for IVIG next Sunday which I would encourage at [facility].
-
Continue secretion clearance interventions.
Mucolytic's continue
Nebulizers continue-DuoNeb and budesonide
Mucus clearing devices-Acapella.
Incentive spirometry
Vest therapy- continue
discontinued IV Solu-Medrol today 04/01/2025-not bronchospastic on exam.
Speech eval /video barium swallow: Negative for overt aspiration.
On airway inspection patient has significant a upper airway edema, vocal cord erythema .there is no evidence for polyps or masses. Adduction and abduction of vocal cords was normal.
ENT evaluation: Unrevealing. Continue pneumonia therapy and antitussives.
He exhibits some esophageal dysfunction with spasm in the setting of pill esophagitis with known history of GERD and Juarez's esophagus, history of Angelica-Payne tear
CT sinuses 03/03/25-mild sinusitis, left frontal sinus, left anterior ethmoid air cells and right posterior ethmoid air cells which appears new from 2023
Chronic sinusitis was a noted issue from last admission as well
ENT consulted- Consult placed per primary team-agree.
Voice continues to be hoarse: Suspect due to ongoing cough and inflammation due to infection.
Right upper quadrant discomfort: Ultrasound negative for acute abnormalities.
Abdomen is benign
Possibly constipation
Tolerating food
Denies nausea or vomiting
DVT prophylaxis-on Lovenox
GI prophylaxis-on pantoprazole
Continue with aspiration precautions.
Dr. Willingham reviewed with patient 03/31/2025, 04/01/2025, 04/02/2025 in detail. I did discuss with his who is an oncologist.
I discussed with infectious disease 04/01/2025 regarding positive stenotrophomonas.
Outpatient pulmonary [id number] saw Dr. Willingham 01/27/2025 and then Mariam Loco CNP 02/16/2025 and has appointment with Mariam on 04/20/25
-
Discharge today
Already has appointment in our office.
He will call me back with any change in symptoms
Diagnostic data:
Chest x-ray 04/13/2023-NAD
Chest x-ray 10/22/2024-NAD
Chest x-ray 12/26/2024-NAD
Chest x-ray 01/28/2025-NAD
Chest x-ray 02/12/2025-NAD
CT chest 03/02/2025-no evidence for pulm embolism, mild bronchial wall thickening and bibasilar opacifications which likely represent multifocal pneumonia
CT Chest 03/27/25- Progressive pulmonary parenchymal disease process throughout the right lower lobe, despite interval improvement in previously noted parenchymal disease in the anterior right lower lobe. Faint areas of minor involvement are also
suggested in the posterior segment of the left upper lobe. Possible considerations include aspiration, infection (airway spread of tuberculosis or nontuberculous mycobacterial infection, fungus), obliterative bronchiolitis.
CT sinus 10/31/23-severe right nasal septal deviation, mild mucosal thickening ethmoid sinuses
Stress echocardiogram 10/31/23-normal stress echocardiogram, EF 55-60% and postexercise 65-70%
ECHO 10/17/22- Normal biventricular size and systolic function without regional wall motion abnormality. Estimated VEF 65-70%. Aortic sclerosis without stenosis. Ectatic proximal ascending aorta: 3.8cm.
Subjective Data
-
Date of Service:
Date of Service: April 03, 2025
Chief Complaint: Pulmonary Follow Up (Pneumonia/immunosuppression)
Subjective:
Clinically better
Denies shortness of breath
Coughing slightly improved
Denies fevers
Objective Data
Data Reviewed
Vital Signs / I&O / Oxygen:
Vital Signs
Temp Pulse Resp BP Pulse Ox
98.2 F 60 16 125/89 96
04/03/25 08:17 04/03/25 11:19 04/03/25 11:19 04/03/25 08:17 04/03/25 12:00
Intake and Output
04/02/25 04/03/25 04/04/25
06:59 06:59 06:59
Intake Total 1020 / 1020
Output Total 800 / 800
Balance 220 / 220
SaO2 96
Physical Exam
General: Comfortable and Other (NAD)
HEENT: Normocephalic, Anicteric and Moist Mucous Membranes
Cardiovascular: S1-S2 and Regular Rhythm
Respiratory: Crackles, Rhonchi and Non-Labored Respirations
GI: Soft, Non Distended and Tender (Mild right upper quadrant, no peritoneal signs)
Neurology: Awake, Alert, Oriented and No Motor Deficits
Skin: Warm, Dry and Good Color
Labs/Micro/Reports
Lab Data
04/03/25 07:55
04/03/25 07:55
Microbiology
03/31/25 12:09 Bronch Left Lower Lobe Acid Fast Bacilli Smear - Preliminary
03/31/25 12:09 Bronch Left Lower Lobe Acid Fast Bacilli Culture - Preliminary
03/31/25 12:09 Bronch Right Lower Lobe Acid Fast Bacilli Smear - Preliminary
03/31/25 12:09 Bronch Right Lower Lobe Acid Fast Bacilli Culture - Preliminary
03/29/25 05:30 Blood/Venous Blood Culture - Final
No Growth - Final Report
03/28/25 19:48 Blood/Venous Blood Culture - Final
No Growth - Final Report
03/31/25 12:10 Bronch Right Lower Lobe Respiratory Culture - Final
Stenotrophomonas maltophilia
03/31/25 12:10 Bronch Right Lower Lobe Gram Stain - Final
03/31/25 12:10 Bronch Left Lower Lobe Respiratory Culture - Final
Stenotrophomonas maltophilia
03/31/25 12:10 Bronch Left Lower Lobe Gram Stain - Final
03/29/25 11:16 Sputum Respiratory Culture - Final
Stenotrophomonas maltophilia
03/29/25 11:16 Sputum Gram Stain - Final
--- NOTE | 2025-04-03 13:21 | CM ---
CM reviewed chart, patient seen bedside, for discharge today. IMM verbally reviewed, provided with copy, placed in chart. Patients will provide transportation home. CM will continue to follow for all discharge planning needs.
Plan; home no needs
== END 2025-04-03 13:48 | disposition home or self-care (01) | DRG 178 ==
LOC: 4 WEST ACU 00:37
PROVIDERS: Internal Medicine; Internal Medicine Critical Care Medicine; Physician Assistant; ADMITTING PHYSICIAN Internal Medicine; ATTENDING PHYSICIAN Internal Medicine; CONSULT PHYSICIAN Internal Medicine; CONSULT PHYSICIAN Internal Medicine Infectious Disease; EMERGENCY PHYSICIAN Emergency Medicine; FAMILY PHYSICIAN Internal Medicine; OTHER PHYSICIAN Otolaryngology
PROC: 0B9G8ZX Drainage of Left Upper Lung Lobe, Via Natural or Artificial Opening Endoscopic, Diagnostic (ICD-10-PCS; 2025-03-31)
PROC: 0B9F8ZX Drainage of Right Lower Lung Lobe, Via Natural or Artificial Opening Endoscopic, Diagnostic (ICD-10-PCS; 2025-03-31)
DX: J15.69 Pneumonia due to other Gram-negative bacteria (principal); C88.40 Extranodal marginal zone B-cell lymphoma of mucosa-associated lymphoid tissue [MALT-lymphoma] not having achieved remission; D84.9 Immunodeficiency, unspecified; E87.1 Hypo-osmolality and hyponatremia; F13.20 Sedative, hypnotic or anxiolytic dependence, uncomplicated; D80.1 Nonfamilial hypogammaglobulinemia; E11.65 Type 2 diabetes mellitus with hyperglycemia; K21.9 Gastro-esophageal reflux disease without esophagitis; L43.9 Lichen planus, unspecified; K59.09 Other constipation; E78.00 Pure hypercholesterolemia, unspecified; I10 Essential (primary) hypertension; K14.1 Geographic tongue; K44.9 Diaphragmatic hernia without obstruction or gangrene; R49.0 Dysphonia; K22.70 Barrett's esophagus without dysplasia; I25.10 Atherosclerotic heart disease of native coronary artery without angina pectoris; J40 Bronchitis, not specified as acute or chronic; R33.9 Retention of urine, unspecified; Z87.01 Personal history of pneumonia (recurrent); Z79.52 Long term (current) use of systemic steroids; Z90.2 Acquired absence of lung [part of]; Z79.51 Long term (current) use of inhaled steroids; Z79.82 Long term (current) use of aspirin; Z85.118 Personal history of other malignant neoplasm of bronchus and lung; Z87.891 Personal history of nicotine dependence; Z86.16 Personal history of COVID-19; Z11.52 Encounter for screening for COVID-19; Z87.19 Personal history of other diseases of the digestive system
CPT/HCPCS: 71250; 74230; 76700; 80048; 80053; 83605; 83735; 84145; 85025; 85027; 86803; 87015; 87040; 87070; 87077; 87102; 87116; 87184; 87186; 87205; 87252; 87449; 87502; 87811; 87899; 88112; 88305; 88312; 89051; 92611; 93005; 94640; 94669; 96361; 96374; 96375; 97161; 99285